=== PATIENT | female | born 1995 | race Caucasian/White ===

== ENCOUNTER 2021-01-02 10:10 | Outpatient (REF) | payer OTHER, SELFPAY | END 2021-01-02 10:11 | disposition home or self-care (01) | LOC: HO.EMPCOV 10:10 | PROVIDERS: Visit Provider Internal Medicine | DX: Z13.89 Encounter for screening for other disorder (principal) | CPT/HCPCS: 36415; 87635; C9803 ==

== ENCOUNTER 2021-01-05 08:17 | Outpatient (REF) | payer OTHER, SELFPAY ==
[2021-01-05 08:31] LABS: COVID-19 Test Positive (Negative); IDNOW Serial# 55D5AD1C
== END 2021-01-05 08:18 | disposition home or self-care (01) ==
LOC: HO.EMPCOV 08:17
PROVIDERS: Visit Provider Internal Medicine
DX: Z20.822 Contact with and (suspected) exposure to COVID-19 (principal)
CPT/HCPCS: 36415; 87635; C9803

== ENCOUNTER 2021-01-16 12:14 | Emergency (ER) | payer OTHER, SELFPAY ==
--- NOTE | ~2021-01-16 | US_ITS ---
EXAMINATION: US VENOUS ULTRASOUND WITH DOPPLER LOWER EXTREMITY, RIGHT CLINICAL INFORMATION: swelling, paresthesias, r/o dvt COMPARISON: None TECHNIQUE: Ultrasound of the deep veins is performed from the hip to the calf with compression sonography and color and pulse Doppler assessment. Spectral analysis with color-flow imaging is performed. FINDINGS: There is normal venous compression and respiratory variation and augmented flow. The visualized common femoral vein, superficial femoral vein, profunda femoral vein, popliteal vein, and the trifurcation region shows no evidence of deep venous thrombosis. There is no significant popliteal fossa cyst. If the patient's symptoms persist, followup ultrasound in 5 days 7 days might be of value to exclude proximal propagation from a non-visualized calf vein. US/US venous duplex LE RT IMPRESSION: No DVT demonstrated in the right lower extremity.
[2021-01-16 12:33] VITALS: BP 137/89; PULSE 98; RESP 18; TEMP 36.6; O2SAT 96; BMI 46.7
--- NOTE | 2021-01-16 12:54 | ED_ITS ---
HPI - General Adult General Chief complaint: General Medical Stated complaint: rt leg pain /numbness Time Seen by Provider: 01/16/21 12:38 Source: patient Mode of arrival: ambulatory Limitations: no limitations History of Present Illness HPI narrative: 25-year-old female previously healthy here with complaints of right leg pain with numbness and tingling x2 days. No injury or trauma. Patient was COVID positive on 01/05. She is currently asymptomatic. Denies any shortness of breath, cough or chest pain. She does have some lower back pain and she tells me the pain radiates from her lower back into her leg. No saddle anesthesia. No bowel or bladder incontinence. No fevers or chills. The patient is ambulatory. No OCP use Related Data Previous Rx's Medication Instructions Recorded cyclobenzaprine 10 mg PO TID PRN #10 tab 01/16/21 lidocaine [Lidoderm] 1 patch TOPICAL DAILY #15 ea 01/16/21 naproxen 500 mg PO BID PRN #20 tab 01/16/21 Allergies Allergy/AdvReac Type Severity Reaction Status Date / Time No Known Allergies Allergy Verified 01/16/21 12:37 Review of Systems Review of Systems: Yes all other systems are reviewed and are negative Constitutional: Constitutional: Reports no additional constitutional complaints, Denies body ache(s), Denies chills, Denies fever(s), Denies headache(s) and Denies weakness Eyes: Eyes: Reports no additional eye complaints and Denies change in vision ENT: Reports system reviewed and no additional complaints, except as documented, Denies dizziness, Denies headache(s), Denies nasal congestion, Denies nasal discharge and Denies neck pain Cardiovascular: Cardiovascular: Reports no additional cardiovascular complaints, Denies chest pain, Denies leg edema and Denies dyspnea Comments: +calf pain Respiratory: Respiratory: Reports no additional respiratory complaints, Denies cough and Denies dyspnea Gastrointestinal: Gastrointestinal: Reports no additional gastrointestinal com plaints, Denies abdominal pain, Denies diarrhea, Denies nausea and Denies vomiting Genitourinary: Genitourinary: Reports no additional female genitourinary complaints and Denies urinary incontinence Musculoskeletal: Musculoskeletal: Reports no additional musculoskeletal complaints, Denies back pain, Denies arthralgias, Denies joint swelling, Denies neck pain, Reports numbness and Denies tingling Integumentary/Breasts: Skin/Breast: Reports system reviewed and no additional complaints, except as docu and Denies rash Neurologic: Reports system reviewed and no additional complaints, except as documented, Denies Abnormal speech present, Denies dizziness, Denies headache(s), Reports numbness, Denies tingling and Denies weakness PMFSH Past Medical History Attestation statement: The following information was validated with the patient. Source: old records reviewed and nursing notes reviewed Medical History High blood pressure Social History Social History Advance Directives: Yes Advance Directives Information Provided: No Advance Directives on File: No Physical Exam Vital Signs: Vital Signs: Last Vital Signs Temp 97.8 F 01/16/21 12:33 Pulse 98 01/16/21 12:33 Resp 18 01/16/21 12:33 BP 137/89 01/16/21 12:33 Pulse Ox 96 01/16/21 12:33 Body Mass Index 46.7 Const: General: cooperative, healthy appearing, comfortable and no acute distress Orientation/consciousness: patient oriented x3 Limitations: no limitations HENMT: Head: Yes normal to inspection Ears: hearing grossly normal bilaterally General nose exam: Normal external nose present Face and sinus: Yes normal facial exam Mouth: Normal oral and palatal mucosa present Throat: Yes posterior oropharynx normal Eyes: General: appearance normal, both eyes and all related structures Pupils: Equal, round and reactive pupils present Neck: Neck: Yes normal visual inspection Chest: Chest palpation & inspection: normal inspection of the chest Resp: Effort & Inspection: normal respiratory effort Auscultation: clear to auscultation bilaterally Cardio: Rate: regular rate Rhythm: regular rhythm Peripheral pulses: Peripheral pulses 2+ throughout GI: Inspection: Yes normal to inspection Palpation (GI): Soft to palpation and nontender Auscultation: normal bowel sounds Back/Spine/Pelvis: Other: Right buttocks pain. Palpable tenderness over the right thigh and right calf with no obvious swelling, erythema or warmth. Neurovascular intact distally. Palpable pulses distally. Pain is worsened with dorsiflexion and plantar flexion of the foot. No midline lumbar tenderness, step-offs or deformities. Pain is worsened with straight leg raise on the right side. Thoracic/Lumbar Spine: thoracic and lumbar spine normal to inspection Skin: General skin exam: no rashes or lesions noted Neuro: General: patient oriented x3, no focal motor deficits and normal sensation to monofilament Cranial nerves: Yes CN's II-XII intact bilaterally, Yes Equal, round and reactive pupils present, Yes Bilaterally intact EOM present, Yes Nystagmus not present, Yes Normal facial strength present, Yes Midline tongue present and Yes Normal gag reflex present Cognition (Neuro): normal cognition Speech: No Abnormal speech present Gait exam (Neuro): Normal gait present Motor exam (neuro): 5/5 motor strength present throughout Sensory Exam: Normal double simultaneous stimulation for sensation Deep tendon reflexes (DTR's): Right patellar reflex intensity grade: 2+ and Left patellar reflex intensity grade: 2+ Extrem: General: Yes normal to inspection Course Course Course Narrative: 25-year-old female COVID positive here with complaints of right leg pain with intermittent paresthesias for 48 hours. On exam she has some right buttocks pain with pain that radiates into the right lower leg which is worsened with straight leg raise. However, she does have some pain in the right calf which is worsened with plantar flexion and dorsiflexion. Due to history of COVID will check ultrasound to rule out DVT. No obvious swelling, warmth, redness, fevers, chills. 1330-US negative for DVT. Exam is more consistent with sciatica. Reviewed this with the patient. Reviewed worrisome signs symptoms when to return to the emergency department. Comfortable with discharge home. Medical Decision Making Medical Records Medical records reviewed: Yes I reviewed the patient's medical records. Lab Data Lab results reviewed: Yes I reviewed the patient's lab results. Imaging Data venous RLE: Attestation: I personally reviewed and interpreted this imaging study as follows: Radiologist's impression: FINDINGS: There is normal venous compression and respiratory variation and augmented flow. The visualized common femoral vein, superficial femoral vein, profunda femoral vein, popliteal vein, and the trifurcation region shows no evidence of deep venous thrombosis. There is no significant popliteal fossa cyst. If the patient's symptoms persist, followup ultrasound in 5 days 7 days might be of value to exclude proximal propagation from a non-visualized calf vein. US/US venous duplex LE RT IMPRESSION: No DVT demonstrated in the right lower extremity. Discharge Plan Discharge Clinical Impression: Sciatica Qualifiers: Laterality: right Qualified Code(s): M54.31 - Sciatica, right side Patient Disposition: Home, Self-Care Instructions: Sciatica (ED) Additional Instructions: Heat or ice Gentle stretching Follow-up with PCP by Tuesday or Tuesday if no improvement Prescriptions: New naproxen 500 mg tablet 500 mg PO BID PRN (Reason: pain) Qty: 20 RF: 0 cyclobenzaprine 10 mg tablet 10 mg PO TID PRN (Reason: muscle spasm) Qty: 10 RF: 0 lidocaine [Lidoderm] 5 % adhesive patch,medicated 1 patch topical DAILY Qty: 15 RF: 0 Referrals: Rose Mary Brennan MD [Primary Care Provider] - 2 days Interventions: ED Discharge Assessment Last Done: 01/16/21 13:57 Discharge Date/Time: 01/16/21 13:57
== END 2021-01-16 13:57 | disposition home or self-care (01) ==
PROVIDERS: Emergency Provider Emergency Medicine; PCP Internal Medicine
DX: M54.41 Lumbago with sciatica, right side (principal); M79.604 Pain in right leg
CPT/HCPCS: 93971; 99283; 99284

== ENCOUNTER 2021-02-25 12:03 | Outpatient (REF) | payer OTHER, SELFPAY ==
[2021-02-25 14:02] LABS: Blood Urea Nitrogen 7 mg/dL (9-16); Estimated Glomerular Filt Rate > 60
== END 2021-02-25 12:04 | disposition home or self-care (01) ==
LOC: HO.LAB 12:03
PROVIDERS: PCP Internal Medicine; Visit Provider Psychiatry & Neurology Neurology
DX: G82.20 Paraplegia, unspecified (principal); G95.9 Disease of spinal cord, unspecified
CPT/HCPCS: 36415; 82565; 84520

== ENCOUNTER 2021-03-03 15:42 | Outpatient (REF) | payer OTHER, SELFPAY ==
--- NOTE | ~2021-03-03 | MR_ITS ---
EXAMINATION: MR BRAIN AND CERVICAL SPINE WITHOUT AND WITH CONTRAST CLINICAL INFORMATION: Myelopathy. COMPARISON: None TECHNIQUE: Multiplanar multisequence MRI of the brain and cervical spine was performed without and with contrast. A total of 10 mL Gadavist was intravenously administered. FINDINGS: Brain MRI: Multiple foci of T2/FLAIR hyperintensity are seen within the periventricular, deep, and juxtacortical cerebral white matter in a distribution typical of demyelinating plaques. No abnormal enhancement is seen on the postcontrast sequences. There is no acute infarct, hemorrhage, mass, or extra-axial fluid collection. The ventricles are normal in size without hydrocephalus. The major arterial flow voids are preserved at the skull base. Scattered paranasal sinus mucosal thickening is noted without fluid levels. A 1.1 cm intermediate T2 signal lesion is present within the superficial lobe of the left parotid gland. Cervical spine MRI: A few plaques are present in the cervical cord including ventrally spanning the C2-C3 level, in the right posterolateral cord at the C3 level, and in the right ventral cord at the C6 level. No upper thoracic cord plaques are seen. There is no abnormal enhancement. The vertebral bodies maintain normal heights and alignment. The disc heights are preserved. There is no significant disc herniation, spinal canal stenosis, or neural foraminal stenosis. The extraspinal soft tissues are within normal limits. MR/MR cervical spine wo/w con IMPRESSION: Brain MRI: Multiple foci of T2/FLAIR hyperintensity within the supratentorial white matter in a distribution typical of demyelinating plaques. No abnormal enhancement. No infratentorial signal abnormality. Incidentally noted 1.1 cm lesion in the superficial lobe of the left parotid gland. Consider nonemergent ENT follow-up. Cervical spine MRI: Demyelinating plaques seen at C2-C3, C3, and C6. No abnormal enhancement. No spinal canal or neural foraminal stenosis.
== END 2021-03-03 15:43 | disposition home or self-care (01) ==
LOC: HO.MRI 15:42
PROVIDERS: Visit Provider Psychiatry & Neurology Neurology
DX: G95.9 Disease of spinal cord, unspecified (principal)
CPT/HCPCS: 70553; 72156; A9585

== ENCOUNTER 2021-03-18 13:09 | Outpatient (REF) | payer OTHER, SELFPAY ==
[2021-03-18 14:03] LABS: Hematocrit 45.3 % (37-47); Hemoglobin 14.8 g/dl (12.0-16.0); Mean Corpuscular HGB Conc 32.7 g/dl (31.0-35.0); Mean Corpuscular Hemoglobin 29.4 pg (27.0-33.0); Mean Corpuscular Volume 89.9 fL (80-98); Mean Platelet Volume 8.5 fL (9.4-12.3); Platelet Count 464 X10*3/uL (160-400); Red Blood Count 5.04 X10*6/uL (4.20-5.50); Red Cell Distribution Width 12.5 % (11.0-16.0)
[2021-03-18 14:30] LABS: Alanine Aminotransferase 39 U/L (0-31); Albumin Level 4.2 g/dL (3.5-5.0); Alkaline Phosphatase 67 U/L (39-117); Anion Gap 10 (12-20); Aspartate Amino Transferase 25 U/L (5-31); Bilirubin Direct 0.2 mg/dL (0.0-0.5); Bilirubin Total 0.6 mg/dL (0.0-1.0); Blood Urea Nitrogen 9 mg/dL (9-16); Calcium 9.4 mg/dL (8.4-10.2); Carbon Dioxide 28 mmol/L (22-29); Chloride 106 mmol/L (96-108); Estimated Glomerular Filt Rate > 60; Glucose Random 81 mg/dL (60-115); Potassium 4.5 mmol/L (3.3-5.1); Sodium 139 mmol/L (135-145); Total Protein 7.4 g/dL (6.5-8.0)
[2021-03-18 14:44] LABS: Erythrocyte Sedimentation Rate 16 MM/HR (0-20)
[2021-03-19 09:01] LABS: Lyme Abs Screen <0.90 index
[2021-03-19 13:32] LABS: Anti Nuclear Antibody Screen NEGATIVE (NEGATIVE)
[2021-03-23 21:12] LABS: JCV Antibody INDETERMINATE; JCV Index Value 0.21
[2021-03-23 22:03] LABS: JCV Ab Inhibition FINAL RSLT: NEGATIVE
== END 2021-03-18 13:10 | disposition home or self-care (01) ==
LOC: HO.LAB 13:09
PROVIDERS: PCP Internal Medicine; Visit Provider Psychiatry & Neurology Neurology
DX: G35 Multiple sclerosis (principal)
CPT/HCPCS: 36415; 80048; 80076; 82306; 85027; 85652; 86038; 86039; 86617; 86618; 86711

== ENCOUNTER 2021-04-01 07:44 | Outpatient (REF) | payer OTHER, SELFPAY ==
[2021-04-01 07:47] VITALS: BMI 46.7
[2021-04-01 07:48] VITALS: BP 131/65; PULSE 86; RESP 16; TEMP 36.1; O2SAT 97
--- NOTE | 2021-04-01 08:00 | OP_ITS ---
SURGEON: Tosin Shepherd MD PREOPERATIVE DIAGNOSIS: POSTOPERATIVE DIAGNOSIS: PROCEDURE PERFORMED: Lumbar puncture. ESTIMATED BLOOD LOSS: COMPLICATIONS: ANESTHESIA: ASSISTANTS: SPECIMENS: DESCRIPTION OF PROCEDURE: Risks and benefits of lumbar puncture were discussed with her. After answering the questions, she was placed in left lateral position. Lower lumbar area was cleaned with Betadine and draped. 1% lidocaine was injected in L4-5 space. A spinal needle was introduced, but she was uncomfortable and lumbar puncture could not be performed and the procedure was terminated. Tosin Shepherd MD MZK/MODL / [id number] MTDD
[2021-04-01 08:22] VITALS: BP 120/71; PULSE 62; RESP 16; O2SAT 97
== END 2021-04-01 07:45 | disposition home or self-care (01) ==
LOC: HO.MS 07:44
PROVIDERS: Visit Provider Psychiatry & Neurology Neurology
PROC: 009U3ZZ Drainage of Spinal Canal, Percutaneous Approach (ICD-10-PCS; CPT 62270; principal; 2021-04-01 08:00)
DX: G35 Multiple sclerosis (principal); I10 Essential (primary) hypertension; N32.89 Other specified disorders of bladder; E66.9 Obesity, unspecified; Z79.899 Other long term (current) drug therapy; Z86.16 Personal history of COVID-19
CPT/HCPCS: 62270

== ENCOUNTER 2021-04-08 09:07 | Day surgery (SDC) | payer OTHER, SELFPAY ==
[2021-04-08] VITALS (7 sets, daily range): BP systolic 109–138; BP diastolic 69–99; PULSE 66–95; RESP 16–18; TEMP 36.2–36.4; O2SAT 96–98; BMI 45.7
--- NOTE | ~2021-04-08 | FL_ITS ---
EXAMINATION: XR LUMBAR PUNCTURE CLINICAL INFORMATION: Multiple sclerosis. COMPARISON: None TECHNIQUE: Following explaining fluoroscopy-guided lumbar puncture procedure, benefits and risk a written consent was obtained. Patient was placed prone on fluoroscopy table and low back area was cleaned in usual sterile manner. 1% lidocaine was injected overlying the L3-L4 disc level. A 20-gauge 6 inch needle was advanced from the skin intrathecally. After observing CSF return patient was quickly placed in a left lateral decubitus. Opening CSF pressure was obtained. CSF fluid was then collected in 4 test tubes. Postprocedure stylet was reintroduced and needle withdrawn. Simple Band-Aid applied to the puncture site. Patient tolerated procedure extremely well. FINDINGS: The opening CSF pressure measured 16.5 cm of water. Approximately 12 mL of clear CSF fluid was collected in 4 test tubes and sent to lab as per referring physician's orders. FLUOROSCOPY TIME: 1.0 minute DOSE AREA PRODUCT: 15.15 uGy-m2 (microgray-meter squared) FL/FL guided lumbar puncture LP IMPRESSION: Successful fluoroscopy-guided L3-L4 lumbar puncture performed.
[2021-04-08 10:04] LABS: UPreg QC Valid YES; Urine Pregnancy NEGATIVE (NEGATIVE)
[2021-04-08 10:04] LABS: MANUAL DIFF FLAG NO
[2021-04-08 10:08] LABS: Basophils Absolute Auto 0.1 X10*3/uL (0.0-0.2); Basophils Percent Auto 0.8 % (0-2); Eosinophils Absolute Auto 0.1 X10*3/uL (0.0-0.4); Eosinophils Percent Auto 1.6 % (0-4); Hematocrit 44.9 % (37-47); Hemoglobin 14.6 g/dl (12.0-16.0); Imm Gran Abs Auto 0.03 X10*3/uL (0.00-0.03); Imm Gran Pct Auto 0.4 % (0.0-0.4); Lymphocytes Absolute Auto 1.7 X10*3/uL (1.2-4.9); Lymphocytes Percent Auto 22.3 % (20-40); Mean Corpuscular HGB Conc 32.5 g/dl (31.0-35.0); Mean Corpuscular Volume 89.1 fL (80-98); Mean Platelet Volume 8.5 fL (9.4-12.3); Monocytes Absolute Auto 0.5 X10*3/uL (0.1-1.2); Monocytes Percent Auto 6.5 % (2-11); Neutrophils Absolute Auto 5.2 X10*3/uL (2.0-8.3); Neutrophils Percent Auto 68.4 % (45-73); Platelet Count 473 X10*3/uL (160-400); Red Blood Count 5.04 X10*6/uL (4.20-5.50); Red Cell Distribution Width 12.4 % (11.0-16.0); White Blood Count 7.5 X10*3/uL (4.8-10.8)
[2021-04-08 10:13] LABS: INTERNATIONAL NORM RATIO 1.2 (0.9-1.1); Prothrombin Time 13.9 SEC (9.9-13.0)
[2021-04-08 10:16] LABS: Partial Thromboplastin Time 40.8 SEC (24.1-38.0)
[2021-04-08] MEDS: Acetaminophen 325 MG TABLET 650 MG PO (12:46)
[2021-04-08 13:35] LABS: CSF Appearance Clear, Colorless; CSF Tube # 1
[2021-04-08 13:46] LABS: Glucose CSF 60 mg/dL; Total Protein CSF 25.3 mg/dL (15-45)
[2021-04-08 14:12] LABS: Appearance CSF CLEAR; CSF Tube # 4; Color CSF COLORLESS; Red Blood Cell CSF 0 MM*3; White Blood Cell CSF 4 MM*3
[2021-04-08 14:13] LABS: Lymphocytes CSF 100 %
[2021-04-09 06:45] LABS: Oligoclonal Serum Yes
[2021-04-11 22:37] LABS: Albumin 4.2 g/dL (3.5-5.2); Albumin, CSF 6.8 mg/dL (8.0-42.0); IgG 1270 mg/dL (600-1640); IgG Synthesis Rate 3.2 mg/24 h (-9.9-3.3); IgG, CSF 2.6 mg/dL (0.8-7.7)
== END 2021-04-08 15:24 | disposition home or self-care (01) ==
PROVIDERS: Psychiatry & Neurology Neurology; PCP Internal Medicine; Visit Provider Radiology Diagnostic Radiology
PROC: 009U3ZZ Drainage of Spinal Canal, Percutaneous Approach (ICD-10-PCS; CPT 62270; principal; 2021-04-08 11:00)
DX: G35 Multiple sclerosis (principal); D75.1 Secondary polycythemia; I10 Essential (primary) hypertension; E66.9 Obesity, unspecified; N32.89 Other specified disorders of bladder; Z79.899 Other long term (current) drug therapy; Z86.16 Personal history of COVID-19
CPT/HCPCS: 36415; 62328; 81025; 82042; 82945; 83916; 84157; 85025; 85610; 85730; 87015; 87070; 87205; 89051

== ENCOUNTER 2021-04-23 09:26 | Outpatient (REF) | payer OTHER, SELFPAY | END 2021-04-23 09:27 | disposition home or self-care (01) | LOC: HO.LAB 09:26 | PROVIDERS: PCP Internal Medicine; Visit Provider Psychiatry & Neurology Neurology | DX: Z13.89 Encounter for screening for other disorder (principal) ==

== ENCOUNTER 2021-05-05 11:05 | Emergency (ER) | payer OTHER, SELFPAY ==
[2021-05-05 12:30] VITALS: BP 131/76; PULSE 84; RESP 18; TEMP 36.2; O2SAT 98; BMI 47.5
[2021-05-05] MEDS: Ondansetron ODT 4 MG TAB.RAPDIS SUBLINGUAL (12:36)
[2021-05-05 13:01] LABS: Glucose Urine UA NEG (NEG); Leukocyte Esterase Urine NEG (NEG); Nitrite Urine NEG (NEG); UACC Culture Trigger NO; Urine Blood TRACE (NEG); Urine Ketones NEG (NEG); Urine Protein NEG (NEG-TRACE)
[2021-05-05 13:05] LABS: Appearance Urine HAZY; Color Urine YELLOW
[2021-05-05 13:06] LABS: UPreg QC Valid YES; Urine Pregnancy NEGATIVE (NEGATIVE)
[2021-05-05 13:09] LABS: Mucus Urine 1+ /LPF; Squamous Epithelial Cell Urine 1+ /LPF; WBC Urine 0 /HPF (0-4)
[2021-05-05 14:24] LABS: Influenza A PCR NEGATIVE (Negative); Influenza B PCR NEGATIVE (Negative); Resp Syncy Virus RNA Qual PCR NEGATIVE (Negative); SARS COV2 PCR INHOUSE NEGATIVE (Negative)
== END 2021-05-05 19:14 | disposition left against medical advice (07) ==
PROVIDERS: Emergency Provider Emergency Medicine; PCP Internal Medicine
DX: R10.9 Unspecified abdominal pain (principal); Z20.822 Contact with and (suspected) exposure to COVID-19
CPT/HCPCS: 0241U; 36415; 81001; 81003; 81025; 99283

== ENCOUNTER 2021-06-16 11:13 | Outpatient (REF) | payer OTHER, SELFPAY ==
[2021-06-16 11:46] LABS: MANUAL DIFF FLAG NO
[2021-06-16 11:53] LABS: Basophils Percent Auto 0.6 % (0-2); Eosinophils Absolute Auto 0.2 X10*3/uL (0.0-0.4); Eosinophils Percent Auto 2.7 % (0-4); Hematocrit 43.8 % (37-47); Hemoglobin 14.3 g/dl (12.0-16.0); Imm Gran Abs Auto 0.02 X10*3/uL (0.00-0.03); Imm Gran Pct Auto 0.3 % (0.0-0.4); Lymphocytes Absolute Auto 1.4 X10*3/uL (1.2-4.9); Lymphocytes Percent Auto 22.1 % (20-40); Mean Corpuscular HGB Conc 32.6 g/dl (31.0-35.0); Mean Corpuscular Hemoglobin 29.1 pg (27.0-33.0); Mean Corpuscular Volume 89.2 fL (80-98); Mean Platelet Volume 8.5 fL (9.4-12.3); Monocytes Absolute Auto 0.4 X10*3/uL (0.1-1.2); Monocytes Percent Auto 6.5 % (2-11); Neutrophils Absolute Auto 4.2 X10*3/uL (2.0-8.3); Neutrophils Percent Auto 67.8 % (45-73); Platelet Count 445 X10*3/uL (160-400); Red Blood Count 4.91 X10*6/uL (4.20-5.50); Red Cell Distribution Width 12.5 % (11.0-16.0); White Blood Count 6.2 X10*3/uL (4.8-10.8)
== END 2021-06-16 11:14 | disposition home or self-care (01) ==
LOC: HO.LAB 11:13
PROVIDERS: PCP Internal Medicine; Visit Provider Psychiatry & Neurology Neurology
DX: G35 Multiple sclerosis (principal)
CPT/HCPCS: 36415; 85025

== ENCOUNTER 2021-07-02 15:03 | Outpatient (REF) | payer OTHER, SELFPAY ==
[2021-07-03 02:47] LABS: CT PCR NOT DETECTED (Not Detect.); NG PCR NOT DETECTED (Not Detect.)
== END 2021-07-02 15:04 | disposition home or self-care (01) ==
LOC: HO.LAB 15:03
PROVIDERS: Visit Provider Obstetrics & Gynecology
DX: Z01.419 Encounter for gynecological examination (general) (routine) without abnormal findings (principal); L68.0 Hirsutism; E28.2 Polycystic ovarian syndrome
CPT/HCPCS: 87491; 87591

== ENCOUNTER 2021-07-03 10:56 | Outpatient (REF) | payer OTHER, SELFPAY ==
[2021-07-06 18:27] LABS: DHEA Sulfate 196 mcg/dL (18-391)
[2021-07-08 13:16] LABS: Testosterone, Free 6.2 pg/mL (0.1-6.4); Testosterone, Total 31 ng/dL (2-45)
== END 2021-07-03 10:57 | disposition home or self-care (01) ==
LOC: HO.LAB 10:56
PROVIDERS: PCP Internal Medicine; Visit Provider Obstetrics & Gynecology
DX: L68.0 Hirsutism (principal)
CPT/HCPCS: 36415; 82627; 83498; 84402; 84403

== ENCOUNTER → 2021-07-29 13:57 | Outpatient (BNVA) | payer OTHER, SELFPAY | PROVIDERS: PCP Internal Medicine; Visit Provider Obstetrics & Gynecology ==

== ENCOUNTER 2021-09-30 13:26 | Outpatient (REF) | payer OTHER, SELFPAY ==
[2021-09-30 13:38] LABS: MANUAL DIFF FLAG NO
[2021-09-30 14:19] LABS: Basophils Percent Auto 0.5 % (0-2); Eosinophils Absolute Auto 0.1 X10*3/uL (0.0-0.4); Eosinophils Percent Auto 2.4 % (0-4); Hemoglobin 14.8 g/dl (12.0-16.0); Imm Gran Abs Auto 0.03 X10*3/uL (0.00-0.03); Imm Gran Pct Auto 0.5 % (0.0-0.4); Lymphocytes Absolute Auto 0.7 X10*3/uL (1.2-4.9); Lymphocytes Percent Auto 11.6 % (20-40); Mean Corpuscular HGB Conc 32.9 g/dl (31.0-35.0); Mean Corpuscular Hemoglobin 29.1 pg (27.0-33.0); Mean Corpuscular Volume 88.6 fL (80.0-98.0); Mean Platelet Volume 8.7 fL (9.4-12.3); Monocytes Absolute Auto 0.6 X10*3/uL (0.1-1.2); Neutrophils Absolute Auto 4.3 x10*3/uL (2.0-8.3); Platelet Count 404 X10*3/uL (160-400); Red Blood Count 5.08 X10*6/uL (4.20-5.50); Red Cell Distribution Width 12.3 % (11.0-16.0); White Blood Count 5.8 X10*3/uL (4.8-10.8)
== END 2021-09-30 13:27 | disposition home or self-care (01) ==
LOC: HO.LABR 13:26
PROVIDERS: PCP Internal Medicine; Visit Provider Internal Medicine Hematology & Oncology
DX: D47.3 Essential (hemorrhagic) thrombocythemia (principal); D75.1 Secondary polycythemia
CPT/HCPCS: 36415; 85025

== ENCOUNTER 2021-11-17 11:31 | Outpatient (REF) | payer OTHER, SELFPAY ==
[2021-11-17 12:18] LABS: Estimated Average Glucose 103 mg/dL; Hemoglobin A1c % 5.2 %
[2021-11-17 12:53] LABS: Alanine Aminotransferase 63 U/L (0-31); Albumin Level 4.3 g/dL (3.5-5.0); Alkaline Phosphatase 58 U/L (39-117); Anion Gap 13 (12-20); Aspartate Amino Transferase 33 U/L (5-31); Bilirubin Total 0.7 mg/dL (0.0-1.0); Blood Urea Nitrogen 9 mg/dL (9-16); Calcium 9.2 mg/dL (8.4-10.2); Carbon Dioxide 22 mmol/L (22-29); Chloride 107 mmol/L (96-108); Estimated Glomerular Filt Rate > 60; Glucose Random 81 mg/dL (60-115); Potassium 4.3 mmol/L (3.3-5.1); Sodium 138 mmol/L (135-145); Total Protein 7.9 g/dL (6.5-8.0)
== END 2021-11-17 11:32 | disposition home or self-care (01) ==
LOC: HO.LAB 11:31
PROVIDERS: PCP Internal Medicine; Visit Provider Pediatrics Pediatric Endocrinology
DX: E66.9 Obesity, unspecified (principal)
CPT/HCPCS: 36415; 80053; 83036

== ENCOUNTER 2021-11-25 12:44 | Outpatient (REF) | payer OTHER, SELFPAY ==
[2021-11-25 13:25] LABS: Hemoglobin 14.7 g/dl (12.0-16.0); Mean Corpuscular HGB Conc 32.7 g/dl (31.0-35.0); Mean Corpuscular Hemoglobin 28.5 pg (27.0-33.0); Mean Corpuscular Volume 87.4 fL (80.0-98.0); Mean Platelet Volume 8.5 fL (9.4-12.3); Platelet Count 429 X10*3/uL (160-400); Red Blood Count 5.15 X10*6/uL (4.20-5.50); Red Cell Distribution Width 12.2 % (11.0-16.0); White Blood Count 6.7 X10*3/uL (4.8-10.8)
== END 2021-11-25 12:45 | disposition home or self-care (01) ==
LOC: HO.LAB 12:44
PROVIDERS: PCP Internal Medicine; Visit Provider Psychiatry & Neurology Neurology
DX: G35 Multiple sclerosis (principal)
CPT/HCPCS: 36415; 85027

== ENCOUNTER 2022-01-28 07:51 | Outpatient (REF) | payer OTHER, SELFPAY ==
[2022-01-28 11:11] LABS: MANUAL DIFF FLAG NO
[2022-01-28 11:49] LABS: Basophils Percent Auto 0.4 % (0-2); Eosinophils Absolute Auto 0.2 X10*3/uL (0.0-0.4); Eosinophils Percent Auto 2.2 % (0-4); Hematocrit 44.2 % (37.0-47.0); Hemoglobin 14.4 g/dl (12.0-16.0); Imm Gran Abs Auto 0.04 X10*3/uL (0.00-0.03); Imm Gran Pct Auto 0.5 % (0.0-0.4); Lymphocytes Absolute Auto 0.9 X10*3/uL (1.2-4.9); Lymphocytes Percent Auto 12.2 % (20-40); Mean Corpuscular HGB Conc 32.6 g/dl (31.0-35.0); Mean Corpuscular Hemoglobin 28.9 pg (27.0-33.0); Mean Corpuscular Volume 88.8 fL (80.0-98.0); Mean Platelet Volume 8.4 fL (9.4-12.3); Monocytes Absolute Auto 0.6 X10*3/uL (0.1-1.2); Monocytes Percent Auto 8.6 % (2-11); Neutrophils Absolute Auto 5.6 x10*3/uL (2.0-8.3); Neutrophils Percent Auto 76.1 % (45-73); Platelet Count 456 X10*3/uL (160-400); Red Blood Count 4.98 X10*6/uL (4.20-5.50); Red Cell Distribution Width 12.8 % (11.0-16.0); White Blood Count 7.4 X10*3/uL (4.8-10.8)
== END 2022-01-28 07:52 | disposition home or self-care (01) ==
LOC: HO.LAB 07:51
PROVIDERS: PCP Internal Medicine; Visit Provider Internal Medicine Hematology & Oncology
DX: D75.1 Secondary polycythemia (principal); D75.839 Thrombocytosis, unspecified; D47.3 Essential (hemorrhagic) thrombocythemia
CPT/HCPCS: 36415; 81219; 81270; 81279; 81339; 85025

== ENCOUNTER 2022-02-19 09:35 | Outpatient (REF) | payer OTHER, SELFPAY ==
--- NOTE | ~2022-02-19 | US_ITS ---
EXAMINATION: US OBSTETRICAL ULTRASOUND CLINICAL INFORMATION: Unspecified maternal hypertension, first trimester COMPARISON: The report of pelvic ultrasound from 10/08/2011 is reviewed. TECHNIQUE: Sonographic imaging of the pelvis is performed using transabdominal and transvaginal transducers. FINDINGS: An anteflexed, anteverted uterus is identified. There are two endometrial cavities, which suggests likelihood of a bicornuate uterus (images 32 and 34 of 37). However, the fundal anatomy is not well depicted to confirm this impression. The myometrial echotexture is normal. No evidence of leiomyoma. Within the right-sided uterine cavity, there is a well-formed gestational sac, mean diameter of 1.22 cm, corresponding to estimated gestational age of 6 weeks. No subchorionic hemorrhage. A yolk sac and pole are observed. The yolk sac is 0.4 cm diameter. The heart rate is 72 bpm. The pole is 0.61 cm, corresponding to estimated gestational age of 6 weeks, 3 days. The right ovary is 3.6 x 2.3 x 4 cm and left ovary 4 x 1.9 x 1.7 cm. No ovarian mass or torsion. No pelvic free fluid. US/US OB <= 14 weeks fetus IMPRESSION: * A single viable intrauterine gestation is identified. There is bradycardia. 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 * The ovaries are normal. No adnexal mass. No pelvic free fluid.
[2022-02-19 11:39] LABS: Estimated Average Glucose 100 mg/dL; Hemoglobin A1c % 5.1 %
[2022-02-19 11:51] LABS: Alanine Aminotransferase 50 U/L (0-31); Aspartate Amino Transferase 30 U/L (5-31); Glucose Random 88 mg/dL (60-115)
== END 2022-02-19 09:36 | disposition home or self-care (01) ==
LOC: HO.LAB 09:35
PROVIDERS: PCP Internal Medicine; Visit Provider Advanced Practice Midwife
DX: O16.1 Unspecified maternal hypertension, first trimester (principal); O26.891 Other specified pregnancy related conditions, first trimester; E28.2 Polycystic ovarian syndrome; O99.211 Obesity complicating pregnancy, first trimester; E66.01 Morbid (severe) obesity due to excess calories; Z3A.00 Weeks of gestation of pregnancy not specified
CPT/HCPCS: 36415; 76801; 82947; 83036; 84450; 84460

== ENCOUNTER 2022-02-23 09:37 | Outpatient (REF) | payer OTHER, SELFPAY ==
--- NOTE | ~2022-02-23 | US_ITS ---
EXAMINATION: US OBSTETRICAL ULTRASOUND CLINICAL INFORMATION: Early . Bradycardia on prior ultrasound 02/19/2022. COMPARISON: Obstetrical ultrasound 02/19/2022. LMP: 12/24/2021. Gestational age by maternal dates is 8 weeks 5 days. Estimated date of delivery by maternal dates is 09/30/2022. TECHNIQUE: Ultrasound of the maternal pelvis is performed using transabdominal and transvaginal transducers. Transvaginal imaging is performed due to inadequate visualization transabdominally. M-mode Doppler is also performed. FINDINGS: There is a single intrauterine gestational sac with visible embryo and yolk sac. The average sac dimension is 1.3 cm corresponding to 6 weeks 1 day. No visible subchorionic hemorrhage or hematoma. CRL (crown rump length): 0.4 cm (6 weeks 1 day +/- 4 days). FHR: No embryonal cardiac activity demonstrated with CRL of 4 mm. KIMI (estimated date of delivery): 10/18/2022 +/- 4 days. MATERNAL ADNEXA: The right maternal ovary measures 4.0 x 1.9 x 2.0 cm. Small dominant follicle versus corpus luteum within the ovary measuring 1.9 x 1.6 cm. The left maternal ovary measures 3.1 x 1.7 x 2.0 cm. No left adnexal mass. There is no significant maternal adnexal mass. No maternal pelvic ascites. Findings called and discussed with Dr. Atkins at 1249 hours. US/US OB transvaginal IMPRESSION: 1. Single intrauterine gestational sac with visible yolk sac and embryo. Average gestational sac dimension and crown-rump length both consistent with 6 weeks 1 day. 2. [place]-rump length only 4 mm. No visible embryo cardiac activity. Findings are suspicious for, but not diagnostic of, a failed intrauterine . Appropriate follow-up recommended. 3. No maternal pelvic ascites. Dominant follicle versus corpus luteum right maternal ovary under 2 cm.
--- NOTE | ~2022-02-23 | US_ITS ---
EXAMINATION: US OBSTETRICAL ULTRASOUND CLINICAL INFORMATION: Early . Bradycardia on prior ultrasound 02/19/2022. COMPARISON: Obstetrical ultrasound 02/19/2022. LMP: 12/24/2021. Gestational age by maternal dates is 8 weeks 5 days. Estimated date of delivery by maternal dates is 09/30/2022. TECHNIQUE: Ultrasound of the maternal pelvis is performed using transabdominal and transvaginal transducers. Transvaginal imaging is performed due to inadequate visualization transabdominally. M-mode Doppler is also performed. FINDINGS: There is a single intrauterine gestational sac with visible embryo and yolk sac. The average sac dimension is 1.3 cm corresponding to 6 weeks 1 day. No visible subchorionic hemorrhage or hematoma. CRL (crown rump length): 0.4 cm (6 weeks 1 day +/- 4 days). FHR: No embryonal cardiac activity demonstrated with CRL of 4 mm. KIMI (estimated date of delivery): 10/18/2022 +/- 4 days. MATERNAL ADNEXA: The right maternal ovary measures 4.0 x 1.9 x 2.0 cm. Small dominant follicle versus corpus luteum within the ovary measuring 1.9 x 1.6 cm. The left maternal ovary measures 3.1 x 1.7 x 2.0 cm. No left adnexal mass. There is no significant maternal adnexal mass. No maternal pelvic ascites. Findings called and discussed with Dr. Atkins at 1249 hours. US/US OB follow up IMPRESSION: 1. Single intrauterine gestational sac with visible yolk sac and embryo. Average gestational sac dimension and crown-rump length both consistent with 6 weeks 1 day. 2. [place]-rump length only 4 mm. No visible embryo cardiac activity. Findings are suspicious for, but not diagnostic of, a failed intrauterine . Appropriate follow-up recommended. 3. No maternal pelvic ascites. Dominant follicle versus corpus luteum right maternal ovary under 2 cm.
[2022-02-23 15:52] LABS: HCG Quantitative 23470 mIU/mL
== END 2022-02-23 09:38 | disposition home or self-care (01) ==
LOC: HO.US 09:37
PROVIDERS: PCP Internal Medicine; Visit Provider Obstetrics & Gynecology
DX: O20.0 Threatened abortion (principal)
CPT/HCPCS: 36415; 76816; 76817; 84702; 86850; 86900; 86901

== ENCOUNTER 2022-02-25 08:23 | Outpatient (REF) | payer OTHER, SELFPAY ==
[2022-02-25 11:05] LABS: HCG Quantitative 26563 mIU/mL
== END 2022-02-25 08:24 | disposition home or self-care (01) ==
LOC: HO.US 08:23
PROVIDERS: PCP Internal Medicine; Visit Provider Obstetrics & Gynecology
DX: O20.0 Threatened abortion (principal)
CPT/HCPCS: 36415; 84702

== ENCOUNTER 2022-03-04 09:58 | Outpatient (REF) | payer OTHER, SELFPAY ==
--- NOTE | ~2022-03-04 | US_ITS ---
EXAMINATION: US OBSTETRICAL ULTRASOUND CLINICAL INFORMATION: , vaginal bleeding and cramping. COMPARISON: Pelvic ultrasound dated 02/23/2022.. LMP: 12/24/2021. Gestational age by maternal dates is 10 weeks, 0 days. Estimated date of delivery by maternal dates is 09/30/2022. TECHNIQUE: Multiple 2-D grayscale and Doppler transabdominal/transvaginal ultrasound images of the pelvis were obtained. FINDINGS: A single intrauterine gestation is again seen. A thin walled yolk sac is seen measuring up to 0.5 cm. Small subchorionic hemorrhage. HR: Not detected. CRL (crown rump length): 0.5 cm (image 52), (previously 0.4 cm). MATERNAL ADNEXA: The right maternal ovary measures 3.5 x 1.9 x 2.9 cm. Doppler showed no abnormal vascular flow. The left maternal ovary not visualized. There is no significant maternal adnexal mass. No maternal pelvic ascites. US/US OB pelvic and transvaginal IMPRESSION: 1. Single intrauterine gestation with ultrasound gestational age of 6.1 +/- 4 days via crown-rump length without significant interval growth nor detectable heart rate. The findings are concerning for demise. Correlate with beta-hCG levels. Repeat ultrasound follow-up is recommended as clinically indicated. 2. Very small subchorionic hemorrhage.
== END 2022-03-04 09:59 | disposition home or self-care (01) ==
LOC: HO.US 09:58
PROVIDERS: Visit Provider Obstetrics & Gynecology
DX: O20.0 Threatened abortion (principal)
CPT/HCPCS: 76801; 76817

== ENCOUNTER 2022-03-04 10:35 | Outpatient (REF) | payer OTHER, SELFPAY ==
[2022-03-04 12:21] LABS: HCG Quantitative 20925 mIU/mL
== END 2022-03-04 10:36 | disposition home or self-care (01) ==
LOC: HO.US 10:35
PROVIDERS: PCP Internal Medicine; Visit Provider Obstetrics & Gynecology
DX: O20.0 Threatened abortion (principal)
CPT/HCPCS: 36415; 84702

== ENCOUNTER 2022-03-04 12:44 | Outpatient (REF) | payer OTHER, SELFPAY ==
[2022-03-05 10:17] LABS: CT PCR NOT DETECTED (Not Detect.); NG PCR NOT DETECTED (Not Detect.)
== END 2022-03-04 12:45 | disposition home or self-care (01) ==
LOC: HO.LAB 12:44
PROVIDERS: Visit Provider Obstetrics & Gynecology
DX: Z11.3 Encounter for screening for infections with a predominantly sexual mode of transmission (principal); Z20.2 Contact with and (suspected) exposure to infections with a predominantly sexual mode of transmission
CPT/HCPCS: 87491; 87591

== ENCOUNTER 2022-03-09 12:57 | Outpatient (REF) | payer OTHER, SELFPAY ==
[2022-03-09 13:51] LABS: Hematocrit 45.1 % (37.0-47.0); Hemoglobin 14.7 g/dl (12.0-16.0); Mean Corpuscular HGB Conc 32.6 g/dl (31.0-35.0); Mean Corpuscular Hemoglobin 28.8 pg (27.0-33.0); Mean Corpuscular Volume 88.3 fL (80.0-98.0); Mean Platelet Volume 8.4 fL (9.4-12.3); Platelet Count 489 X10*3/uL (160-400); Red Blood Count 5.11 X10*6/uL (4.20-5.50); Red Cell Distribution Width 12.6 % (11.0-16.0)
[2022-03-09 14:30] LABS: HCG Quantitative 472 mIU/mL
== END 2022-03-09 12:58 | disposition home or self-care (01) ==
LOC: HO.LAB 12:57
PROVIDERS: Visit Provider Obstetrics & Gynecology
DX: O02.1 Missed abortion (principal)
CPT/HCPCS: 36415; 84702; 85027; 88305

== ENCOUNTER 2022-03-09 13:19 | Outpatient (REF) | payer OTHER, SELFPAY | END 2022-03-09 13:20 | disposition home or self-care (01) | LOC: HO.US 13:19 | PROVIDERS: Visit Provider Obstetrics & Gynecology | DX: Z13.89 Encounter for screening for other disorder (principal) ==

== ENCOUNTER 2022-03-09 13:44 | Outpatient (REF) | payer OTHER, SELFPAY ==
--- NOTE | ~2022-03-09 | US_ITS ---
EXAMINATION: US OBSTETRICAL PELVIC AND TRANSVAGINAL CLINICAL INFORMATION: Missed . COMPARISON: OB ultrasound 03/04/2022. LMP: 12/24/2021. Gestational age by maternal dates is 10 weeks 5 days. Estimated date of delivery by maternal dates is 09/30/2022. TECHNIQUE: Both transabdominal and endovaginal scanning was performed. FINDINGS: No pole is seen. Thickened heterogeneous endometrium is present with the lower uterine segment mass measuring 1.5 cm suggesting retained products of conception. At the time of the 03/04/2022 study, a pole was seen with no heart beat detected suggesting intrauterine demise. MATERNAL ADNEXA: The right maternal ovary measures 2.8 x 1.9 x 2.3 cm. The left maternal ovary measures 3.3 x 1.8 x 2.3 cm. There is no significant maternal adnexal mass. No maternal pelvic ascites. US/US OB pelvic and transvaginal IMPRESSION: An intrauterine is not present. There is what appears to be retained products of conception within the lower uterine segment.
== END 2022-03-09 13:45 | disposition home or self-care (01) ==
LOC: HO.US 13:44
PROVIDERS: Visit Provider Obstetrics & Gynecology
DX: O02.1 Missed abortion (principal)
CPT/HCPCS: 76801; 76817

== ENCOUNTER 2022-03-18 10:11 | Outpatient (REF) | payer OTHER, SELFPAY ==
[2022-03-18 11:19] LABS: HCG Quantitative 28 mIU/mL
== END 2022-03-18 10:12 | disposition home or self-care (01) ==
LOC: HO.LAB 10:11
PROVIDERS: PCP Internal Medicine; Visit Provider Obstetrics & Gynecology
DX: O02.1 Missed abortion (principal)
CPT/HCPCS: 36415; 84702

== ENCOUNTER 2022-04-01 08:18 | Outpatient (REF) | payer OTHER, SELFPAY ==
[2022-04-01 11:14] LABS: HCG Quantitative < 2 mIU/mL
== END 2022-04-01 08:19 | disposition home or self-care (01) ==
LOC: HO.LAB 08:18
PROVIDERS: PCP Internal Medicine; Visit Provider Obstetrics & Gynecology
DX: O02.1 Missed abortion (principal)
CPT/HCPCS: 36415; 84702

== ENCOUNTER 2022-04-15 13:35 | Outpatient (REF) | payer OTHER, SELFPAY ==
[2022-04-15 15:22] LABS: HCG Quantitative 25 mIU/mL
== END 2022-04-15 13:36 | disposition home or self-care (01) ==
LOC: HO.LAB 13:35
PROVIDERS: PCP Internal Medicine; Visit Provider Obstetrics & Gynecology
DX: Z34.91 Encounter for supervision of normal pregnancy, unspecified, first trimester (principal)
CPT/HCPCS: 36415; 81025; 84702

== ENCOUNTER 2022-04-16 09:28 | Outpatient (REF) | payer OTHER, SELFPAY ==
[2022-04-16 10:31] LABS: HCG Quantitative 36 mIU/mL
== END 2022-04-16 09:29 | disposition home or self-care (01) ==
LOC: HO.LAB 09:28
PROVIDERS: PCP Internal Medicine; Visit Provider Obstetrics & Gynecology
DX: Z34.91 Encounter for supervision of normal pregnancy, unspecified, first trimester (principal)
CPT/HCPCS: 36415; 84702

== ENCOUNTER 2022-04-19 08:08 | Outpatient (REF) | payer OTHER, SELFPAY ==
[2022-04-19 10:56] LABS: HCG Quantitative 143 mIU/mL
== END 2022-04-19 08:09 | disposition home or self-care (01) ==
LOC: HO.LAB 08:08
PROVIDERS: PCP Internal Medicine; Visit Provider Obstetrics & Gynecology
DX: Z34.91 Encounter for supervision of normal pregnancy, unspecified, first trimester (principal)
CPT/HCPCS: 36415; 84702

== ENCOUNTER 2022-04-21 07:54 | Outpatient (REF) | payer OTHER, SELFPAY ==
[2022-04-21 09:28] LABS: HCG Quantitative 446 mIU/mL
== END 2022-04-21 07:55 | disposition home or self-care (01) ==
LOC: HO.LAB 07:54
PROVIDERS: PCP Internal Medicine; Visit Provider Obstetrics & Gynecology
DX: Z34.90 Encounter for supervision of normal pregnancy, unspecified, unspecified trimester (principal)
CPT/HCPCS: 36415; 84702

== ENCOUNTER 2022-04-23 07:52 | Outpatient (REF) | payer OTHER, SELFPAY ==
[2022-04-23 09:50] LABS: HCG Quantitative 1059 mIU/mL
== END 2022-04-23 07:53 | disposition home or self-care (01) ==
LOC: HO.LAB 07:52
PROVIDERS: PCP Internal Medicine; Visit Provider Obstetrics & Gynecology
DX: Z34.90 Encounter for supervision of normal pregnancy, unspecified, unspecified trimester (principal); Z3A.01 Less than 8 weeks gestation of pregnancy
CPT/HCPCS: 36415; 84702

== ENCOUNTER 2022-04-26 08:26 | Outpatient (REF) | payer OTHER, SELFPAY ==
[2022-04-26 09:57] LABS: HCG Quantitative 3332 mIU/mL
== END 2022-04-26 08:27 | disposition home or self-care (01) ==
LOC: HO.LAB 08:26
PROVIDERS: PCP Internal Medicine; Visit Provider Obstetrics & Gynecology
DX: Z34.90 Encounter for supervision of normal pregnancy, unspecified, unspecified trimester (principal); Z3A.01 Less than 8 weeks gestation of pregnancy
CPT/HCPCS: 36415; 84702

== ENCOUNTER 2022-04-27 13:13 | Outpatient (REF) | payer OTHER, SELFPAY ==
--- NOTE | ~2022-04-27 | US_ITS ---
EXAMINATION: US OBSTETRICAL ULTRASOUND CLINICAL INFORMATION: Encounter for supervision abnormal COMPARISON: Previous OB ultrasounds most recent 03/09/2022 LMP: Unknown. Gestational age by maternal dates is . Estimated date of delivery by maternal dates is . TECHNIQUE: Transabdominal and transvaginal pelvic ultrasound. Transvaginal exam was performed for better visualization of the uterus and ovaries. FINDINGS: The uterus measures 6 x 3 x 4 cm in dimension. There is a cystic area seen in the endometrium questionable for an intrauterine gestational sac. Mean sac diameter measures 0.6 cm which would suggest gestational age of 5 weeks 1 day. No pole or yolk sac is seen. The cervix is normal. The ovaries are normal. The right ovary measures 3.1 x 2 x 2.6 cm. The left ovary measures 3.3 x 2.1 x 2.5 cm. There is no fluid in the pelvis. US/US OB pelvic and transvaginal IMPRESSION: Question intrauterine gestational sac. Mean sac diameter would suggest gestational age of 5 weeks 1 day. No pole or yolk sac seen.
== END 2022-04-27 13:14 | disposition home or self-care (01) ==
LOC: HO.US 13:13
PROVIDERS: PCP Internal Medicine; Visit Provider Obstetrics & Gynecology
DX: Z34.91 Encounter for supervision of normal pregnancy, unspecified, first trimester (principal); Z3A.01 Less than 8 weeks gestation of pregnancy
CPT/HCPCS: 76801; 76817

== ENCOUNTER 2022-04-28 | Outpatient (REF) | payer OTHER, SELFPAY ==
[2022-04-28 10:56] LABS: HCG Quantitative 5155 mIU/mL
== END 2022-04-28 00:01 ==
LOC: HO.LAB
PROVIDERS: PCP Internal Medicine; Visit Provider Obstetrics & Gynecology
DX: Z34.90 Encounter for supervision of normal pregnancy, unspecified, unspecified trimester (principal)
CPT/HCPCS: 36415; 84702

== ENCOUNTER 2022-05-06 12:11 | Outpatient (REF) | payer OTHER, SELFPAY ==
--- NOTE | ~2022-05-06 | US_ITS ---
EXAMINATION: US OBSTETRICAL ULTRASOUND CLINICAL INFORMATION: Early hemorrhage. COMPARISON: 04/27/2022. LMP: Unknown. TECHNIQUE: Sonographic imaging of the pelvis is performed using transabdominal and transvaginal transducers. FINDINGS: The anteflexed, anteverted uterus has normal contour and normal myometrial echotexture. No evidence of uterine leiomyoma. There is a nabothian cyst of the cervix. A gestational sac in the fundal portion of the endometrium has increased in size compared to 04/27/2022. The gestational sac is partially obscured by acoustic shadowing on the transvaginal imaging. The mean sac diameter is 1.61 cm, corresponding to estimated gestational age of 6 weeks, 3 days. Previously, the mean sac diameter was 0.6 cm, gestational age of 5 weeks, 1 day on prior ultrasound from 04/27/2022. No evidence of subchorionic hemorrhage. A 0.3 cm diameter yolk sac is visualized. Currently, there is no visible pole. If clinically necessary, follow-up pelvic ultrasound may be performed in another 10 days to ensure that this evolves into a normal viable intrauterine . The right ovary is 3.6 x 2 x 2.8 cm and left ovary 2.4 x 2.2 x 2.2 cm. No adnexal mass. No pelvic free fluid. US/US OB pelvic and transvaginal IMPRESSION: * The gestational sac has increased in size. There is interval development of a yolk sac. The gestational sac diameter suggests gestational age of 6 weeks, 3 days. If deemed clinically appropriate, follow-up ultrasound may be performed after 10 more days to ensure that this evolves into a normal viable intrauterine gestation. * No evidence of ectopic .
== END 2022-05-06 12:12 | disposition home or self-care (01) ==
LOC: HO.US 12:11
PROVIDERS: Visit Provider Obstetrics & Gynecology
DX: O20.9 Hemorrhage in early pregnancy, unspecified (principal)
CPT/HCPCS: 76801; 76817

== ENCOUNTER 2022-05-12 07:30 | Emergency (ER) | payer OTHER, SELFPAY ==
--- NOTE | ~2022-05-12 | US_ITS ---
EXAMINATION: US OBSTETRICAL ULTRASOUND CLINICAL INFORMATION: Vaginal bleeding, spotting and cramping. COMPARISON: Previous exams April 27 and 05/06/2022. LMP: Not available. Gestational age by maternal dates is . Estimated date of delivery by maternal dates is . TECHNIQUE: Transabdominal and transvaginal first trimester OB ultrasound was performed. FINDINGS: There is again question of a bicornuate uterus. There is an intrauterine gestational sac seen in the left uterine horn. [place]-rump length measures 0.9 cm suggesting gestational age 7 weeks 0 days with estimated date of delivery of 12/29/2022. heart rate is 140 bpm. There is a yolk sac. No subchorionic hemorrhage is seen. There is a nabothian cyst in the cervix measuring 1 cm. This appears unchanged. The ovaries are seen transabdominally only and appear normal. There is no fluid in the pelvis. US/US OB pelvic and transvaginal IMPRESSION: 1. Single intrauterine gestation with ultrasound gestational age of 7 weeks 0 days +/- 4 days. 2. Estimated date of delivery is 12/29/2022 +/- 4 days. 3. No subchorionic hemorrhage seen. There is again question of bicornuate uterus with gestational sac seen in the left uterine horn. There is a nabothian cyst in the cervix.
[2022-05-12 07:35] VITALS: BP 128/82; PULSE 90; RESP 16; TEMP 36.6; O2SAT 98; BMI 49.4
[2022-05-12 09:10] VITALS: BP 129/79; PULSE 88; RESP 18; O2SAT 98
[2022-05-12 09:21] LABS: Appearance Urine Clear; Glucose Urine UA Negative (Negative); Leukocyte Esterase Urine Negative (Negative); Nitrite Urine Negative (Negative); Specific Gravity - Urine 1.015 (1.005-1.025); UPreg QC Valid YES; Urine Blood Large (3+) (Negative); Urine Ketones Negative (Negative); Urine Pregnancy POSITIVE (NEGATIVE); Urine Protein Negative (Neg-Trace)
[2022-05-12 09:22] LABS: Color Urine Straw
[2022-05-12 09:31] LABS: RBC Urine 0-2 /HPF (0-2); WBC Urine 0-5 /HPF (0-5)
[2022-05-12 09:32] LABS: Bacteria Urine None Seen (None Seen); Hyaline Casts Urine 0-2 /LPF (0-2)
--- NOTE | 2022-05-12 09:32 | ED_ITS ---
HPI - General Chief complaint: Vaginal Bleeding Stated complaint: problems Time Seen by Provider: 05/12/22 08:37 Source: patient Mode of arrival: ambulatory History of Present Illness HPI Narrative: 27-year-old female at about 7 weeks gestation presenting to the ED complaining of vaginal spotting x3 days with passing of bright red clot this morning. Admits to associated intermittent lower abdominal cramping. Denies fever, chills, nausea, vomiting, diarrhea, dysuria/hematuria, flank pain, vaginal discharge Of note patient evaluated by OBGYN Dr. Atkins on 05/06/2022 for similar symptoms had ultrasound that showed gestational sac consistent with 6 weeks 3 days, no heart rate/ pole seen MD Complaint: vaginal bleeding Onset (ago): day(s) Related Data Home Medications Medication Instructions Recorded Confirmed amlodipine 2.5 mg tablet 2.5 mg PO DAILY 07/02/21 02/19/22 cholecalciferol (vitamin D3) 50 50 mcg PO DAILY 07/02/21 02/19/22 mcg (2,000 unit) capsule Previous Rx's Medication Instructions Recorded vitamins no.144-folic 1 tab PO DAILY 180 days #180 tabs 04/19/22 acid 400 mcg chewable tablet Allergies Allergy/AdvReac Type Severity Reaction Status Date / Time No Known Allergies Allergy Verified 05/06/22 13:07 Review of Systems Review of Systems: Constitutional: No Fever, No Chills, No Fatigue, No Malaise ENT/Mouth: No Hearing loss, No Ear Pain, No Hoarseness, No sore throat, No Rhinorrhea, No Swallowing Difficulty Eyes: No Eye Pain, No Swelling, No Redness, No Foreign Body, No Discharge, No Vision Changes Cardiovascular: No Chest Pain, No SOB, No Orthopnea, No Edema, No Palpitations Respiratory: No Cough, No Wheezing, No Dyspnea Gastrointestinal: No Nausea, No Vomiting, No Diarrhea, No Constipation, + Abdominal cramping Genitourinary: No irregular bleeding, No Dysuria, No Urinary Frequency, No Hematuria, No Urinary Incontinence/retention, No Urgency, No Flank Pain Musculoskeletal: No joint pain, No Myalgias, No Joint Swelling Skin: No Skin Lesions, No rash Neuro: No Weakness, No Loss of Consciousness, No Dizziness, No Headache Yes all other systems are reviewed and are negative Constitutional: Constitutional: Reports as per [facility] Past Medical History Attestation statement: The following information was validated with the patient. Medical History ASCUS with positive high risk HPV cervical High blood pressure Multiple sclerosis Family History Family History Father Diabetes HTN (hypertension) Social History Social History Household Members: Family Housing: House Alcohol intake: never Patient Tobacco Use Status: Never used Tobacco Advance Directives: No Advance Directives Information Provided: No service: No Current occupational status: employed Sexual orientation: Straight/Heterosexual Gender identity: Female Physical Exam Vital Signs: Vital Signs: Last Vital Signs Temp 96.2 F L 05/12/22 13:25 Pulse 80 05/12/22 13:25 Resp 18 05/12/22 09:10 BP 124/72 05/12/22 13:25 Pulse Ox 99 05/12/22 13:25 O2 Del Method 05/12/22 13:25 BMI result Body Mass Index 49.4 Const: General: cooperative, healthy appearing and no acute distress Orientation/consciousness: patient oriented x3 Limitations: no limitations HEENT: Head: Yes normal to inspection and Yes atraumatic Ears: hearing grossly normal bilaterally General nose exam: Normal external nose present Face and sinus: Yes normal facial exam Eyes: General: appearance normal, both eyes and all related structures EOM: EOMs intact bilaterally Neck: Neck: Yes normal visual inspection and Yes no meningeal signs Resp: Effort & Inspection: normal respiratory effort and no respiratory distress Auscultation: clear to auscultation bilaterally Cardio: Rate: regular rate Heart sounds: S1 normal heart sound present and S2 normal heart sound present GI: Inspection: Yes normal to inspection Palpation (GI): Soft to palpation, Tenderness to palpation present (GI) (Right suprapubic) suprapubicly; with no rebound tenderness, no guarding and not rigid : Other: Scant amount of bleeding in vaginal vault, cleared without active hemorrhage. Small clots noted. General: Yes no CVA tenderness Speculum Exam - Vagina: vaginal bleeding and nontender Bimanual exam- vagina & uterus: no cervical motion tenderness Bimanual Exam- Adnexa, other: tender on the right OB/external & speculum: vaginal bleeding Back/Spine/Pelvis: Back: no CVA tenderness Skin: Rashes: no rashes Wounds: no wounds Neuro: General: patient oriented x3, tone normal and no meningeal signs Gait exam (Neuro): Normal gait present Extrem: General: Yes normal to inspection Course Course Course Narrative: -1048--no leukocytosis. H&H is stable. Platelets at baseline UA with blood. Not infected. Patient is ABO positive -HCG 29,967 US OB pelvic and transvaginal IMPRESSION: 1. Single intrauterine gestation with ultrasound gestational age of? 7 weeks 0 days +/- 4 days. 2. Estimated date of delivery is 12/29/2022 +/- 4 days. 3. No subchorionic hemorrhage seen. ? There is again question of bicornuate uterus with gestational sac seen in the left uterine horn. There is a nabothian cyst in the cervix. > results discussed with patient. She reports she has follow-up with Dr. Atkins on Tuesday, recommended repeat HCG prior to appointment, patient was supplied with lab slip. Discussed SAB precautions MDM - OB/Uterine Contractions MDM Narrative Medical decision making narrative: 27-year-old female at about 7 weeks gestation presenting to the ED complaining of vaginal spotting x3 days with passing of bright red clot this morning. On exam vital signs stable, NAD/nontoxic, abdomen soft with suprapubic/right-sided suprapubic tenderness, no rebound or guarding. On pelvic exam small amount of bleeding and fall with small clots. No active hemorrhage. No CMT, + right adnexal tenderness. Exam not consistent with PID. Concern for SAB/threatened vs early bleeding. Lower suspicion for TOA/ovarian torsion/cyst or appendicitis/diverticulitis Plan: Labs, UA, pelvic ultrasound, STI testing Medical Records Attestation: I reviewed the patient's medical records. Lab Data Attestation: I reviewed the patient's lab results. Result diagrams: 05/12/22 09:41 05/12/22 09:41 Labs: Lab Results 05/12/22 05/12/22 05/12/22 Range/Units 09:11 09:11 09:41 WBC 6.8 (4.8-10.8) X10*3/uL RBC 5.25 (4.20-5.50) X10*6/uL Hgb 15.2 (12.0-16.0) g/dl Hct 45.6 (37.0-47.0) % MCV 86.9 (80.0-98.0) fL MCH 29.0 (27.0-33.0) pg MCHC 33.3 (31.0-35.0) g/dl RDW 12.5 (11.0-16.0) % Plt Count 433 H (160-400) X10*3/uL MPV 8.2 L (9.4-12.3) fL Immature Gran % (Auto) 0.4 (0.0-0.4) % Neut % (Auto) 77.5 H (45-73) % Lymph % (Auto) 13.3 L (20-40) % [place] % (Auto) 6.2 (2-11) % Eos % (Auto) 1.9 (0-4) % Baso % (Auto) 0.7 (0-2) % Lymph # (Auto) 0.9 L (1.2-4.9) X10*3/uL [place] # (Auto) 0.4 (0.1-1.2) X10*3/uL Eos # (Auto) 0.1 (0.0-0.4) X10*3/uL Baso # (Auto) 0.1 (0.0-0.2) X10*3/uL Abs Immat Gran (auto) 0.03 (0.00-0.03) X10*3/uL Absolute Neuts (auto) 5.2 (2.0-8.3) x10*3/uL Absolute Nucleated RBC 0.000 (0.0-0.012) X10*3/uL Nucleated RBC % (auto) 0.0 (0.0-0.2) /100WBC Sodium (135-145) mmol/L Potassium (3.3-5.1) mmol/L Chloride (96-108) mmol/L Carbon Dioxide (22-29) mmol/L Anion Gap (12-20) BUN (9-16) mg/dL Creatinine (0.5-1.4) mg/dL Estim Creat Clear Calc Estimated GFR Random Glucose (60-115) mg/dL Calcium (8.4-10.2) mg/dL Beta HCG, Quant mIU/mL Urine Color Straw Urine Appearance Clear Urine pH 8.0 (5.0-8.0) Ur Specific [place] 1.015 (1.005-1.025) Urine Protein Negative (Neg-Trace) mg/dL Urine Glucose (UA) Negative (Negative) mg/dL Urine Ketones Negative (Negative) mg/dL Urine Blood Large (3+) H (Negative) Urine Nitrite Negative (Negative) Ur Leukocyte Esterase Negative (Negative) Urine RBC 0-2 (0-2) /HPF Urine WBC 0-5 (0-5) /HPF Ur Squamous Epith Cells 3-5 (0-2) /HPF Urine Bacteria None Seen (None Seen) Hyaline Casts 0-2 (0-2) /LPF Urine Test POSITIVE H (NEGATIVE) 05/12/22 Range/Units 09:41 WBC (4.8-10.8) X10*3/uL RBC (4.20-5.50) X10*6/uL Hgb (12.0-16.0) g/dl Hct (37.0-47.0) % MCV (80.0-98.0) fL MCH (27.0-33.0) pg MCHC (31.0-35.0) g/dl RDW (11.0-16.0) % Plt Count (160-400) X10*3/uL MPV (9.4-12.3) fL Immature Gran % (Auto) (0.0-0.4) % Neut % (Auto) (45-73) % Lymph % (Auto) (20-40) % [place] % (Auto) (2-11) % Eos % (Auto) (0-4) % Baso % (Auto) (0-2) % Lymph # (Auto) (1.2-4.9) X10*3/uL [place] # (Auto) (0.1-1.2) X10*3/uL Eos # (Auto) (0.0-0.4) X10*3/uL Baso # (Auto) (0.0-0.2) X10*3/uL Abs Immat Gran (auto) (0.00-0.03) X10*3/uL Absolute Neuts (auto) (2.0-8.3) x10*3/uL Absolute Nucleated RBC (0.0-0.012) X10*3/uL Nucleated RBC % (auto) (0.0-0.2) /100WBC Sodium 140 (135-145) mmol/L Potassium 4.5 (3.3-5.1) mmol/L Chloride 107 (96-108) mmol/L Carbon Dioxide 23 (22-29) mmol/L Anion Gap 15 (12-20) BUN 7 L (9-16) mg/dL Creatinine 0.61 (0.5-1.4) mg/dL Estim Creat Clear Calc 174.3 Estimated GFR > 60 Random Glucose 89 (60-115) mg/dL Calcium 8.7 (8.4-10.2) mg/dL Beta HCG, Quant 62222 mIU/mL Urine Color Urine Appearance Urine pH (5.0-8.0) Ur Specific [place] (1.005-1.025) Urine Protein (Neg-Trace) mg/dL Urine Glucose (UA) (Negative) mg/dL Urine Ketones (Negative) mg/dL Urine Blood (Negative) Urine Nitrite (Negative) Ur Leukocyte Esterase (Negative) Urine RBC (0-2) /HPF Urine WBC (0-5) /HPF Ur Squamous Epith Cells (0-2) /HPF Urine Bacteria (None Seen) Hyaline Casts (0-2) /LPF Urine Test (NEGATIVE) Discharge Plan Discharge Clinical Impression: Bleeding in early Patient Disposition: Home, Self-Care Instructions: Early Labor Signs (ED) Additional Instructions: Your ultrasound shows an intrauterine gestation at 7 weeks. Your hCG was 29,000 today. If her bleeding persists, worsens, you have abdominal pain, are unable to eat or drink or developed fever please return to the emergency department Keep her follow-up with OBGYN on Tuesday Prescriptions: No Action amlodipine 2.5 mg tablet 2.5 mg PO DAILY cholecalciferol (vitamin D3) 50 mcg (2,000 unit) capsule 50 mcg PO DAILY no.144-folic acid 400 mcg tablet,chewable 1 tab PO DAILY 180 Days Qty: 180 1RF Referrals: Theodore Atkins MD [Physician] - 2 days
[2022-05-12 10:00] LABS: MANUAL DIFF FLAG NO
[2022-05-12 10:06] LABS: Basophils Absolute Auto 0.1 X10*3/uL (0.0-0.2); Basophils Percent Auto 0.7 % (0-2); Eosinophils Absolute Auto 0.1 X10*3/uL (0.0-0.4); Eosinophils Percent Auto 1.9 % (0-4); Hematocrit 45.6 % (37.0-47.0); Hemoglobin 15.2 g/dl (12.0-16.0); Imm Gran Abs Auto 0.03 X10*3/uL (0.00-0.03); Imm Gran Pct Auto 0.4 % (0.0-0.4); Lymphocytes Absolute Auto 0.9 X10*3/uL (1.2-4.9); Lymphocytes Percent Auto 13.3 % (20-40); Mean Corpuscular HGB Conc 33.3 g/dl (31.0-35.0); Mean Corpuscular Volume 86.9 fL (80.0-98.0); Mean Platelet Volume 8.2 fL (9.4-12.3); Monocytes Absolute Auto 0.4 X10*3/uL (0.1-1.2); Monocytes Percent Auto 6.2 % (2-11); Neutrophils Absolute Auto 5.2 x10*3/uL (2.0-8.3); Neutrophils Percent Auto 77.5 % (45-73); Platelet Count 433 X10*3/uL (160-400); Red Blood Count 5.25 X10*6/uL (4.20-5.50); Red Cell Distribution Width 12.5 % (11.0-16.0); White Blood Count 6.8 X10*3/uL (4.8-10.8)
[2022-05-12 10:21] LABS: Anion Gap 15 (12-20); Blood Urea Nitrogen 7 mg/dL (9-16); Calcium 8.7 mg/dL (8.4-10.2); Carbon Dioxide 23 mmol/L (22-29); Chloride 107 mmol/L (96-108); Creatinine Clr Calc Pharmacy 174.3; Estimated Glomerular Filt Rate > 60; Glucose Random 89 mg/dL (60-115); Potassium 4.5 mmol/L (3.3-5.1); Sodium 140 mmol/L (135-145)
[2022-05-12 10:51] LABS: HCG Quantitative 29967 mIU/mL
[2022-05-12 13:25] VITALS: BP 124/72; PULSE 80; TEMP 35.7; O2SAT 99
[2022-05-12 13:44] LABS: CT PCR NOT DETECTED (Not Detect.); NG PCR NOT DETECTED (Not Detect.)
[2022-05-13 09:39] LABS: BV Int Neg Control Negative (Negative); BV Int Pos Control Positive (Positive)
== END 2022-05-12 14:04 | disposition home or self-care (01) ==
PROVIDERS: Physician Assistant; Emergency Provider Emergency Medicine; PCP Internal Medicine
DX: O20.9 Hemorrhage in early pregnancy, unspecified (principal); Z3A.01 Less than 8 weeks gestation of pregnancy; O34.41 Maternal care for other abnormalities of cervix, first trimester; N88.8 Other specified noninflammatory disorders of cervix uteri
CPT/HCPCS: 36415; 76801; 76817; 80048; 81001; 81025; 84702; 85025; 87480; 87491; 87510; 87591; 87660; 99283; 99284

== ENCOUNTER 2022-05-14 08:08 | Outpatient (REF) | payer OTHER, SELFPAY | END 2022-05-14 08:09 | disposition home or self-care (01) | LOC: HO.US 08:08 | PROVIDERS: Absent Provider Physician Assistant; PCP Internal Medicine; Visit Provider Obstetrics & Gynecology | DX: Z13.89 Encounter for screening for other disorder (principal) ==

== ENCOUNTER 2022-06-08 07:40 | Outpatient (REF) | payer OTHER, SELFPAY ==
[2022-06-08 09:54] LABS: Hematocrit 43.5 % (37.0-47.0); Hemoglobin 14.7 g/dl (12.0-16.0); Mean Corpuscular HGB Conc 33.8 g/dl (31.0-35.0); Mean Corpuscular Hemoglobin 28.5 pg (27.0-33.0); Mean Corpuscular Volume 84.5 fL (80.0-98.0); Mean Platelet Volume 8.3 fL (9.4-12.3); Platelet Count 413 X10*3/uL (160-400); Red Blood Count 5.15 X10*6/uL (4.20-5.50); Red Cell Distribution Width 12.7 % (11.0-16.0); White Blood Count 8.4 X10*3/uL (4.8-10.8)
[2022-06-08 10:30] LABS: Alanine Aminotransferase 33 U/L (0-31); Albumin Level 4.1 g/dL (3.5-5.0); Alkaline Phosphatase 56 U/L (39-117); Anion Gap 15 (12-20); Aspartate Amino Transferase 24 U/L (5-31); Bilirubin Total 0.7 mg/dL (0.0-1.0); Blood Urea Nitrogen 6 mg/dL (9-16); Calcium 9.2 mg/dL (8.4-10.2); Carbon Dioxide 20 mmol/L (22-29); Chloride 107 mmol/L (96-108); Estimated Glomerular Filt Rate > 60; Glucose 1 Hour PP 50gm Dose 117 mg/dL (60-140); Glucose Random 117 mg/dL (60-115); Potassium 4.1 mmol/L (3.3-5.1); Sodium 138 mmol/L (135-145); Total Protein 7.4 g/dL (6.5-8.0); Uric Acid 3.8 mg/dL (2.4-5.7)
[2022-06-08 10:40] LABS: HBsAGNum1 0.26 S/CO (0.00-0.99); HIV AB/AG Nonreactive (Nonreactive); HIV Num 1 0.06 S/CO (0.00-0.99); Hepatitis B Surface Antigen Negative (Negative); ~HepC Num1 0.06 S/CO (0.00-0.79); ~Hepatitis C Antibody Nonreactive (Nonreactive)
[2022-06-08 11:08] LABS: Creatinine Urine 182.97 mg/dL; Protein/Creatinine Ratio, Ur 0.09 (<0.2); Total Protein Urine Random 16 mg/dL (<12)
[2022-06-08 11:11] LABS: Amphetamine Screen Urine Not Detected (Not Detect); Barbiturates, Urine Not Detected (Not Detect); Benzodiazepines Screen Urine Not Detected (Not Detect); Cannabinoid Screen Urine Not Detected (Not Detect); Cocaine Screen Urine Not Detected (Not Detect); Fentanyl, urine Not Detected (Not Detect); Opiate Screen Urine Not Detected (Not Detect); Phencyclidine Screen Urine Not Detected (Not Detect)
[2022-06-09 05:46] LABS: Syphilis Screen Nonreactive (Nonreactive)
[2022-06-10 00:42] LABS: Rubella IgG Antibody 2.01 Index; Varicella IgG Antibody <135.00 index
== END 2022-06-08 07:41 | disposition home or self-care (01) ==
LOC: HO.LAB 07:40
PROVIDERS: Visit Provider Obstetrics & Gynecology
DX: O16.1 Unspecified maternal hypertension, first trimester (principal); O99.211 Obesity complicating pregnancy, first trimester; E66.01 Morbid (severe) obesity due to excess calories
CPT/HCPCS: 80053; 80307; 84156; 84550; 85027; 86762; 86780; 86787; 86803; 86850; 86900; 87086; 87340; 87389

== ENCOUNTER 2022-06-15 14:45 | Outpatient (REF) | payer OTHER, SELFPAY ==
[2022-06-15 15:46] LABS: Alanine Aminotransferase 31 U/L (0-31); Aspartate Amino Transferase 25 U/L (5-31); Blood Urea Nitrogen 6 mg/dL (9-16); Estimated Glomerular Filt Rate > 60
== END 2022-06-15 14:46 | disposition home or self-care (01) ==
LOC: HO.LAB 14:45
PROVIDERS: Visit Provider Obstetrics & Gynecology
DX: O16.1 Unspecified maternal hypertension, first trimester (principal)
CPT/HCPCS: 36415; 82565; 84450; 84460; 84520

== ENCOUNTER 2022-07-15 08:59 | Emergency (ER) | payer OTHER, SELFPAY ==
--- NOTE | ~2022-07-15 | US_ITS ---
EXAMINATION: US OBSTETRICAL ULTRASOUND CLINICAL INFORMATION: 16 week gestation with vaginal fluid leakage. KIMI based on prior ultrasound 12/29/2022. COMPARISON: Pelvic ultrasound 05/12/2022, 05/06/2022, 04/27/2022. TECHNIQUE: Ultrasound of the maternal pelvis is performed using transabdominal and transvaginal transducers. Transvaginal imaging is performed due to inadequate visualization transabdominally. M-mode Doppler is also performed. FINDINGS: There is a single intrauterine gestation with an anterior placenta. There is marked oligohydramnios, No appreciable amniotic fluid. There is bradycardia, 81 bpm. Preliminary report provided to Dr. Roberts in emergency department by hospice registered nurse. US/US OB pelvic and transvaginal IMPRESSION: 1. Single intrauterine gestation with marked oligohydramnios. No appreciable amniotic fluid. 2. bradycardia, 81 bpm. 3. Anterior placenta. No visible hemorrhage or hematoma.
[2022-07-15 09:05] VITALS: BP 131/70; PULSE 95; RESP 22; TEMP 36.6; O2SAT 99; BMI 49.4
--- NOTE | 2022-07-15 09:12 | PC.NURSE ---
DR REYES AT THE BEDSIDE FOR PELVIC AND US. REPORTS THAT THE CERVIX IS OPEN. IV ACCESS GAINED. NS 1L INFUSING. IN A 22G LEFT HAND DIFFICULT TO ASSESS FHR WITH DOPPLER.
[2022-07-15 09:14] LABS: MANUAL DIFF FLAG NO
[2022-07-15] MEDS: 0.9 % Sodium Chloride 1,000 ML 999 ML IV (09:15)
[2022-07-15 09:20] LABS: Basophils Percent Auto 0.4 % (0-2); Eosinophils Absolute Auto 0.1 X10*3/uL (0.0-0.4); Hematocrit 43.1 % (37.0-47.0); Hemoglobin 14.6 g/dl (12.0-16.0); Imm Gran Abs Auto 0.08 X10*3/uL (0.00-0.03); Imm Gran Pct Auto 0.7 % (0.0-0.4); Lymphocytes Percent Auto 8.9 % (20-40); Mean Corpuscular HGB Conc 33.9 g/dl (31.0-35.0); Mean Corpuscular Hemoglobin 28.9 pg (27.0-33.0); Mean Corpuscular Volume 85.2 fL (80.0-98.0); Mean Platelet Volume 8.3 fL (9.4-12.3); Monocytes Absolute Auto 0.5 X10*3/uL (0.1-1.2); Monocytes Percent Auto 4.8 % (2-11); Neutrophils Absolute Auto 9.5 x10*3/uL (2.0-8.3); Neutrophils Percent Auto 84.2 % (45-73); Platelet Count 419 X10*3/uL (160-400); Red Blood Count 5.06 X10*6/uL (4.20-5.50); Red Cell Distribution Width 12.9 % (11.0-16.0); White Blood Count 11.3 X10*3/uL (4.8-10.8)
[2022-07-15 09:23] VITALS: BP 111/65; PULSE 94; O2SAT 99
--- NOTE | 2022-07-15 09:32 | ED.PREGNANCY ---
HPI - General Chief complaint: General Medical Stated complaint: Preg/Water broke 16 wk s Time Seen by Provider: 07/15/22 09:12 Source: patient and old records reviewed Mode of arrival: wheelchair Limitations: no limitations History of Present Illness HPI Narrative: 27 yo female with hx of MS, G2 prior miscarriage US in June 11 w 1d D = US states she went to [facility] 2 days ago with pelvic pain and dx with BV no US then started on what sounds like metro gel. She notes the pain has been worse, no movement felt (has felt some) at work here this AM when she felt severe pain and a gush of fluid. Brought down to the ED. MD Complaint: abdominal pain and vaginal discharge Onset (ago): day(s) (2) Pain Consistency: constant Location: pelvis and abdomen Severity: severe Quality: Cramping Radiation: pelvis and abdomen Relieving factors: none Exacerbating factors: none Associated symptoms: vaginal bleeding and vaginal discharge Vaginal discharge: felt water broke Vaginal bleeding: light Patient : Yes Related Data Home Medications Medication Instructions Recorded Confirmed amlodipine 2.5 mg tablet 2.5 mg PO DAILY 07/02/21 06/04/22 cholecalciferol (vitamin D3) 50 50 mcg PO DAILY 07/02/21 06/04/22 mcg (2,000 unit) capsule Previous Rx's Medication Instructions Recorded vitamins no.144-folic 1 tab PO DAILY 180 days #180 tabs 04/19/22 acid 400 mcg chewable tablet doxylamine succinate 25 mg tablet 25 mg PO BEDTIME 30 days #30 tabs 06/04/22 (Unisom (doxylamine)) pyridoxine (vitamin B6) 25 mg 25 mg PO tid PRN nausea 30 days 06/04/22 tablet (Vitamin B-6) #90 tabs Allergies Allergy/AdvReac Type Severity Reaction Status Date / Time IV contrast AdvReac Mild Dizziness Uncoded 06/04/22 09:09 Review of Systems Review of Systems: Constitutional : No Fever, No Chills ENT/Mouth : No sore throat, No Rhinorrhea Eyes: No Eye Pain, No Redness Cardiovascular : No Chest Pain, No SOB Respiratory : No Cough, No Sputum, No Wheezing Gastrointestinal : no Nausea, No Vomiting, No Diarrhea, positive abdominal pain, Genitourinary : no irregular bleeding, No Dysuria, No Urinary Frequency, positive pelvic pain, pos vag discharge Musculoskeletal : No Myalgias Skin : No rash Neuro : No Weakness, No Headache Psych : pos Anxiety/Panic, No Depression Heme/Lymph: No bruising, No Lymphadenopathy Endocrine : No Polyuria, No Polydipsia All other systems reviewed and are negative [facility] Past Medical History Medical History ASCUS with positive high risk HPV cervical High blood pressure Multiple sclerosis Family History Family History Father Diabetes HTN (hypertension) Paternal Aunt Cancer of breast, female Social History Social History Household Members: Family Housing: House Are you a primary customer care representative to a significant other at home: No Do you presently have visiting nurse or other home services: No Alcohol intake: never Patient Tobacco Use Status: Never used Tobacco Trauma History: SAB 03/04/22 Agree to transfusion: Yes Advance Directives: No Patient : Yes service: No Current occupational status: unemployed Current occupational exposures/hazards: No Sexual orientation: Straight/Heterosexual Gender identity: Female Vision needs: Yes Physical Exam Vital Signs: Vital Signs: Last Vital Signs Temp 97.8 F 07/15/22 09:05 Pulse 94 07/15/22 09:23 Resp 22 H 07/15/22 09:05 BP 111/65 07/15/22 09:23 Pulse Ox 99 07/15/22 09:23 O2 Del Method 07/15/22 09:23 BMI result Body Mass Index 49.4 Appearance: Alert. Oriented X3. Anxious in pain, moderate acute distress Eyes: Pupils equal, round and reactive to light. ENT: Pharynx normal. Neck: Normal inspection. Neck supple. CVS: Normal heart rate and rhythm. Pulses normal. Respiratory: No respiratory distress. Breath sounds normal. Abdomen: Soft and moderate lower abdominal ttp : sterile speculum exam - in vault clear fluid noted moderate amount, mucous seen with mild bleed noted no clots os is open 1 to 2 cm Skin: Skin warm and dry. Normal skin color. Normal skin turgor. Extremities: No lower extremity edema. No calf ttp Neuro: Oriented X 3. No motor deficit. No sensory deficit. Course Course Course Narrative: message sent to Dr. Atkins 930am - sent to [facility] needs expectant management, monitor for infection, will need to deliver vs D+C call to [facility] 945am mom and dad with patient I went over results and concerns with patient - she seems to understand offered medication for cramping she declines at this time repeat call to transfer line 1050am [facility] patient remains stable no further bleeding spoke to resident Kate, accepting attending to go to [facility] - Dr. Thompson Ultrasound of the maternal pelvis is performed using transabdominal and transvaginal transducers. Transvaginal imaging is performed due to inadequate visualization transabdominally. M-mode Doppler is also performed. ? FINDINGS: There is a single intrauterine gestation with an anterior placenta. There is marked oligohydramnios, No appreciable amniotic fluid. There is bradycardia, 81 bpm. Preliminary report provided to Dr. Roberts in emergency department by radiology scheduler. US/US OB pelvic and transvaginal IMPRESSION: 1. Single intrauterine gestation with marked oligohydramnios. No appreciable amniotic fluid. 2. bradycardia, 81 bpm. 3. Anterior placenta.? No visible hemorrhage or hematoma. MDM - OB/Uterine Contractions MDM Narrative Medical decision making narrative: 27 yo female G2 16 w1d D = US here with c/o gush of fluid and severe pain - no fluid in uterus, os is open, low HR - SROM with impending miscarriage at non viable age will discuss with OB. Patient notified of findings. Lab Data Result diagrams: 07/15/22 09:05 07/15/22 09:05 Labs: Lab Results 07/15/22 07/15/22 07/15/22 Range/Units 09:05 09:05 09:28 WBC 11.3 H (4.8-10.8) X10*3/uL RBC 5.06 (4.20-5.50) X10*6/uL Hgb 14.6 (12.0-16.0) g/dl Hct 43.1 (37.0-47.0) % MCV 85.2 (80.0-98.0) fL MCH 28.9 (27.0-33.0) pg MCHC 33.9 (31.0-35.0) g/dl RDW 12.9 (11.0-16.0) % Plt Count 419 H (160-400) X10*3/uL MPV 8.3 L (9.4-12.3) fL Immature Gran % (Auto) 0.7 H (0.0-0.4) % Neut % (Auto) 84.2 H (45-73) % Lymph % (Auto) 8.9 L (20-40) % [place] % (Auto) 4.8 (2-11) % Eos % (Auto) 1.0 (0-4) % Baso % (Auto) 0.4 (0-2) % Lymph # (Auto) 1.0 L (1.2-4.9) X10*3/uL [place] # (Auto) 0.5 (0.1-1.2) X10*3/uL Eos # (Auto) 0.1 (0.0-0.4) X10*3/uL Baso # (Auto) 0.0 (0.0-0.2) X10*3/uL Abs Immat Gran (auto) 0.08 H (0.00-0.03) X10*3/uL Absolute Neuts (auto) 9.5 H (2.0-8.3) x10*3/uL Absolute Nucleated RBC 0.000 (0.0-0.012) X10*3/uL Nucleated RBC % (auto) 0.0 (0.0-0.2) /100WBC Sodium 138 (135-145) mmol/L Potassium 4.4 (3.3-5.1) mmol/L Chloride 107 (96-108) mmol/L Carbon Dioxide 17 L (22-29) mmol/L Anion Gap 18 (12-20) BUN 5 L (9-16) mg/dL Creatinine 0.54 (0.5-1.4) mg/dL Estim Creat Clear Calc 196.9 Estimated GFR > 60 Random Glucose 104 (60-115) mg/dL Calcium 9.4 (8.4-10.2) mg/dL Magnesium 1.8 (1.6-2.6) mg/dL Total Bilirubin 0.5 (0.0-1.0) mg/dL AST 33 H (5-31) U/L ALT 19 (0-31) U/L Alkaline Phosphatase 52 (39-117) U/L Total Protein 7.9 (6.5-8.0) g/dL Albumin 3.9 (3.5-5.0) g/dL COVID-19 (JHOAN) Negative (Negative) COVID-19 Clin Com See Note Procedures Procedure Narrative Procedure Narrative: bedside US limited movement - HR 81, no fluid in uterus noted Discharge Plan Discharge Clinical Impression: SRM (spontaneous rupture of membranes) Anhydramnios Qualifiers: Fetus number: single or unspecified fetus Trimester: second trimester Qualified Code(s): O41.02X0 - Oligohydramnios, second trimester, not applicable or unspecified [facility] Transfer Details: [facility] Prescriptions: No Action amlodipine 2.5 mg tablet 2.5 mg PO DAILY cholecalciferol (vitamin D3) 50 mcg (2,000 unit) capsule 50 mcg PO DAILY no.144-folic acid 400 mcg tablet,chewable 1 tab PO DAILY 180 Days Qty: 180 1RF pyridoxine (vitamin B6) [Vitamin B-6] 25 mg tablet 25 mg PO tid PRN (Reason: nausea) 30 Days Qty: 90 3RF Rx Instructions: may take every 6 - 8 hours for nausea Unisom (doxylamine) 25 mg tablet 25 mg PO BEDTIME 30 Days Qty: 30 3RF
--- NOTE | 2022-07-15 09:41 | PM.OBCN ---
OB Consult Note - HPI Data Service Date: 07/15/22 Primary Care Provider: Rose Mary Brennan MD Narrative I was consulted on Orin Good at 16 weeks and 1 day of gestation by US on 06/11/2020 presenting to the emergency room with gush of fluid this a.m. associated with pelvic pain. The patient [facility] 2 days ago with pelvic pain and was diagnosed with BV no US done then, the patient was discharged on metro gel. Since then the patient stated that her pain has been worse. Bedside US limited movement by Dr. Roberts showed FHR = 81, no amniotic identified. OB PMFSH Past Medical History Medical History ASCUS with positive high risk HPV cervical High blood pressure Multiple sclerosis Family History Family History Father Diabetes HTN (hypertension) Paternal Aunt Cancer of breast, female Social History Social History Household Members: Family Housing: House Are you a primary caretaker resort to a significant other at home: No Do you presently have visiting nurse or other home services: No Alcohol intake: never Patient Tobacco Use Status: Never used Tobacco Trauma History: SAB 03/04/22 Agree to transfusion: Yes Advance Directives: No Patient : Yes service: No Current occupational status: unemployed Current occupational exposures/hazards: No Sexual orientation: Straight/Heterosexual Gender identity: Female Vision needs: Yes Meds Allergies Allergy/AdvReac Type Severity Reaction Status Date / Time IV contrast AdvReac Mild Dizziness Uncoded 06/04/22 09:09 Active Medications: Current Medications Sodium Chloride (Ns) 1,000 mls @ 999 mls/hr IV .Q1H1M NAVJOT Stop: 07/15/22 10:15 Last Admin: 07/15/22 09:15 Dose: 999 mls/hr Home Medications Medication Instructions Recorded Confirmed Last Taken Type amlodipine 2.5 mg tablet 2.5 mg PO DAILY 07/02/21 06/04/22 Unknown History cholecalciferol (vitamin D3) 50 50 mcg PO DAILY 07/02/21 06/04/22 Unknown History mcg (2,000 unit) capsule OB Flowsheet OB Flowsheet & Tools OB Flowsheet Initial Weight: 270 lb Date <del>?</del> EGA Weight Gest Week Fundal Ht Present FHR move Efface % Edema BP PrePreg We Weight GTT <del>?</del> Glucose LV Protein Blood Type 06/04/22 <del>?</del> 10w 4d 272 lb 4 oz (+2 lb 4 oz) 128/80 272 lb 4 oz <del>?</del> KIMI Calculator Estimated Delivery Date Method Current WG Current Estimate 12/27/22 Ultrasound #1 18w 1d Other Estimates 12/29/22 Ultrasound #2 17w 6d Plans Hypertension affecting in first trimester O16.1 PCOS (polycystic ovarian syndrome) E28.2 ASCUS with positive high risk HPV cervical R87.610; R87.810 Obesity, morbid, BMI 40.0-49.9 E66.01 Missed O02.1 Bleeding in early O20.9 Bicornuate uterus Q51.3 Multiple sclerosis G35 History of high platelet count Z86.2 Notes Visit Date: 06/04/22 Last Updated by: Susan Champagne Tripp Sr is a pleasant 27 year old with unknown LMP. H/O miscarriage 03/04/22 treated Mifepristone/Misoprostol by Dr Atkins. Pt had bleeding in early but no bleeding at this time. US 05/06/22 at 6w3d and additional US 05/12/22 at 7w0d give KIMI 12/26/22 and 12/29/22, respectively, GA 10w2d/10w4d respectively. Pt has h/o HTN treated with Amlodipine, B/P today 128/80. Obesity BMI 49.8, bicornuate uterus dx at age 16, PCOS, MS followed by Dr Shepherd, h/o high platelets followed by Hematology at [facility]. Pt reports nausea, fatigue, and breast tenderness. We discussed B6/Unisom and pt would like to try, script sent to pharmacy. Pt was advised breast tenderness is normal in but she could try a well fitting bra to provide extra support. Pt was given the folder, we discussed danger signs, 18/04 MD coverage and how to reach the MD after hours. We reviewed education, increasing her water intake and healthy diet. Pt is aware that is high risk and she will need to be transferred to a [facility] practice. She is already established with [facility] and a records release was signed to initiate transfer. Auscultated FHR 130 bpm and pt was very pleased to hear heartbeat for the first time. labs were ordered including early glucose and HTN labs. Pt is already scheduled for first trimester screening at [facility] 06/09/22. Pt verbalizes understanding and agrees with plan, no further questions. Past Pregnancies Del. Date GA/Weeks Outcome Route Wt Inf Gender Labor Josiane Anesthesia Location Provider Complicate 03/04/22 spontaneous History 2 Elective abortions 0 Para 0 Spontaneous abortions 1 Hx # Term Pregnancies 0 Ectopic pregnancies 0 Hx # Pregnancies 0 Multiple births 0 OB Physical Exam Physical Exam Additional Comments: Reported the Dr. Roberts as the following: heart rate=81 bpm on ultrasound Abdomen abdominal exam= Soft and moderate lower abdominal ttp sterile speculum exam - in vault clear fluid noted moderate amount, mucous seen with mild bleed noted no clots os is open 1 to 2 cm OB Consult Results Labs CBC & Chem 7: 07/15/22 09:05 07/15/22 09:05 Labs: Short CBC 07/15/22 Range/Units 09:05 WBC 11.3 H (4.8-10.8) X10*3/uL Hgb 14.6 (12.0-16.0) g/dl Hct 43.1 (37.0-47.0) % Plt Count 419 H (160-400) X10*3/uL OB - CN: A/P Assessment and Plan (1) SRM (spontaneous rupture of membranes): Status: Inactive Assessment and Plan: Previable Plan Spontaneous rupture of membrane at a previable gestational age is associated with the following risks: - deaths - survival rates in patients who were expectantly managed for periviable PROM are lower before 22 weeks of gestation compared to after 22 weeks of gestation -Significant maternal complications that can occur after periviable PROM including but not limited to: Intraamniotic infection, endometritis, abruptio placentae, and retained placenta, significant maternal morbidity, including sepsis, transfusion, hemorrhage, infection, life-threatening maternal infection, Maternal sepsis and maternal deaths. -Risk of pulmonary hypoplasia after PROM before 24 weeks of gestation which is associated with a high risk of mortality. -Prolonged oligohydramnios also can result in deformations, including Potter-like facies and limb contractures or other positioning abnormalities. The reported frequency of skeletal deformations varies widely. Recommended to Dr. Roberts to transfer the patient to [facility] for further management since there is no maternity unit at [facility]. I spent a total of 20 minutes reviewing the chart, communicating to the ER provider and documenting in the medical record
[2022-07-15 09:42] LABS: Alanine Aminotransferase 19 U/L (0-31); Albumin Level 3.9 g/dL (3.5-5.0); Alkaline Phosphatase 52 U/L (39-117); Anion Gap 18 (12-20); Aspartate Amino Transferase 33 U/L (5-31); Bilirubin Total 0.5 mg/dL (0.0-1.0); Blood Urea Nitrogen 5 mg/dL (9-16); Calcium 9.4 mg/dL (8.4-10.2); Carbon Dioxide 17 mmol/L (22-29); Chloride 107 mmol/L (96-108); Creatinine Clr Calc Pharmacy 196.9; Estimated Glomerular Filt Rate > 60; Glucose Random 104 mg/dL (60-115); Magnesium 1.8 mg/dL (1.6-2.6); Potassium 4.4 mmol/L (3.3-5.1); Sodium 138 mmol/L (135-145); Total Protein 7.9 g/dL (6.5-8.0)
[2022-07-15 10:04] LABS: COVID-19 Test Negative (Negative)
--- NOTE | 2022-07-15 10:52 | PC.NURSE ---
2ND CALL PLACED TO [facility] PT TX LINE PER DR REYES REQUEST D/T STILL WAITING FOR CALL BACK ABOUT THIS PT SADE ANSWERS AND SAID A 2ND PAGE WILL BE SENT OUT
--- NOTE | 2022-07-15 11:01 | PC.NURSE ---
[facility] CALLS BACK @ THIS TIME TO SPEAK WITH DR AMY REYES TAKES OVER CALL RIGHT AWAY
--- NOTE | 2022-07-15 11:38 | PC.NURSE ---
ATA DIRECTOR ON AIR FOR [facility] A AMARAL HERE TO FILL OUT MED NEC AND BOOK TRANSFER @ THIS TIME
--- NOTE | 2022-07-15 11:40 | PC.NURSE ---
@ 1109AM TRANSPORT DIRECTOR CHANNEL FOR [facility] A BERUMEN CONTACTED BY TEXT FOR BLS TO [facility] WET
[2022-07-15 11:51] VITALS: BP 117/67; PULSE 92; RESP 14; TEMP 36.9; O2SAT 97
[2022-07-15 12:15] VITALS: BP 123/67; PULSE 95; RESP 20; O2SAT 97
--- NOTE | 2022-07-15 12:17 | PC.NURSE ---
Report called to [facility]. Pt still reports pelvic pain at this time. Mother at bedside, pt aware of plan for transport and waiting for EMS.
== END 2022-07-15 12:17 | disposition short-term general hospital (02) ==
PROVIDERS: Nurse Practitioner Family; Emergency Provider Emergency Medicine; PCP Internal Medicine
DX: O41.02X0 Oligohydramnios, second trimester, not applicable or unspecified (principal); Z20.822 Contact with and (suspected) exposure to COVID-19; Z79.899 Other long term (current) drug therapy; Z3A.16 16 weeks gestation of pregnancy
CPT/HCPCS: 76801; 76817; 80053; 83735; 85025; 86900; 86901; 87635; 96360; 96361; 99284; 99285

== ENCOUNTER 2022-11-01 10:41 | Outpatient (REF) | payer OTHER, SELFPAY ==
[2022-11-01 11:14] LABS: MANUAL DIFF FLAG NO
[2022-11-01 11:56] LABS: Basophils Absolute Auto 0.1 X10*3/uL (0.0-0.2); Basophils Percent Auto 0.7 % (0-2); Eosinophils Absolute Auto 0.1 X10*3/uL (0.0-0.4); Hematocrit 47.7 % (37.0-47.0); Hemoglobin 15.5 g/dl (12.0-16.0); Imm Gran Abs Auto 0.03 X10*3/uL (0.00-0.03); Imm Gran Pct Auto 0.4 % (0.0-0.4); Lymphocytes Absolute Auto 1.1 X10*3/uL (1.2-4.9); Lymphocytes Percent Auto 16.2 % (20-40); Mean Corpuscular HGB Conc 32.5 g/dl (31.0-35.0); Mean Corpuscular Hemoglobin 27.8 pg (27.0-33.0); Mean Corpuscular Volume 85.5 fL (80.0-98.0); Mean Platelet Volume 8.8 fL (9.4-12.3); Monocytes Absolute Auto 0.4 X10*3/uL (0.1-1.2); Monocytes Percent Auto 5.2 % (2-11); Neutrophils Absolute Auto 5.2 x10*3/uL (2.0-8.3); Neutrophils Percent Auto 75.5 % (45-73); Platelet Count 544 X10*3/uL (160-400); Red Blood Count 5.58 X10*6/uL (4.20-5.50); Red Cell Distribution Width 13.2 % (11.0-16.0); White Blood Count 6.9 X10*3/uL (4.8-10.8)
[2022-11-01 12:09] LABS: Estimated Average Glucose 108 mg/dL; Hemoglobin A1c % 5.4 %
[2022-11-01 12:37] LABS: Syphilis Screen Nonreactive (Nonreactive)
[2022-11-01 12:51] LABS: Vitamin D 25-OH Total 33.1 ng/mL (>30)
[2022-11-01 13:50] LABS: CT PCR NOT DETECTED (Not Detect.); NG PCR NOT DETECTED (Not Detect.)
[2022-11-02 11:09] LABS: Rubella IgG Antibody 2.41 Index
[2022-11-03 07:46] LABS: HBsAGNum1 0.31 S/CO (0.00-0.99); HIV AB/AG Nonreactive (Nonreactive); HIV Num 1 0.09 S/CO (0.00-0.99); Hepatitis B Surface Antigen Negative (Negative); ~HepC Num1 0.08 S/CO (0.00-0.79); ~Hepatitis C Antibody Nonreactive (Nonreactive)
[2022-11-04 21:12] LABS: Anti-Mullerian Hormone-Female 3.36 ng/mL (0.69-13.39)
[2022-11-17 13:28] LABS: Estradiol, Ultrasensitive 23 pg/mL; Follicle Stimulating Hormone 5.9 mIU/mL; Lutenizing Hormone 2.5 mIU/mL
== END 2022-11-01 10:42 | disposition home or self-care (01) ==
LOC: HO.LAB 10:41
PROVIDERS: PCP Internal Medicine; Visit Provider Student in an Organized Health Care Education/Training Program
DX: Z31.49 Encounter for other procreative investigation and testing (principal); E66.01 Morbid (severe) obesity due to excess calories; Q51.818 Other congenital malformations of uterus
CPT/HCPCS: 0353U; 82306; 82397; 82670; 82681; 83001; 83002; 83036; 85025; 86762; 86780; 86803; 87340; 87389

== ENCOUNTER 2022-11-02 15:46 | Outpatient (REF) | payer OTHER, SELFPAY ==
--- NOTE | ~2022-11-02 | MR_ITS ---
EXAMINATION: MR BRAIN WITHOUT AND WITH CONTRAST CLINICAL INFORMATION: Multiple sclerosis. COMPARISON: Brain MRI from 03/03/2021. TECHNIQUE: MRI of the brain was obtained using routine sequences without and with contrast using MS protocol following the administration of 10 mL of Gadavist intravenous contrast. This included a sagittal T2 FLAIR sequence. FINDINGS: There are multiple T2/FLAIR hyperintense lesions consistent with an underlying diagnosis of demyelination. This includes lesions within the subcortical, deep white matter, periventricular, callosal, and cerebellar distributions. New Lesions: None. Enhancing Lesions: None. Restricted Diffusion: None. T1 Black Holes: 2-3 Volume Loss: None. Additional Findings: No overt evidence of edema or expansion of the optic nerves. No focal restricted diffusion is seen to suggest acute or subacute cerebral ischemia. No intracranial mass, intra-axial blood products, midline shift, or extra-axial collection is demonstrated. The ventricles and sulcal spaces appear normal. Normal arterial and venous vascular flow voids are present. No signal abnormalities within the superior sagittal or transverse sinuses. Mild mucosal thickening of the paranasal sinuses. No signal abnormalities within the mastoids. There is a 1.1 cm nodule in the anterior aspect of the superficial lobe of the left parotid gland, similar to exam from 2020. MR/MR head/brain wo/w con IMPRESSION: 1. Stable pattern of supratentorial and infratentorial white matter disease consistent with an underlying diagnosis of demyelination in the appropriate clinical setting. 2. No evidence of disease progression. No new lesions. No abnormal enhancement to suggest active demyelination. 3. Stable 1.1 cm lesion in the superficial lobe of the left parotid gland.
== END 2022-11-02 15:47 | disposition home or self-care (01) ==
LOC: HO.MRI 15:46
PROVIDERS: PCP Internal Medicine; Visit Provider Psychiatry & Neurology Neurology
DX: G35 Multiple sclerosis (principal)
CPT/HCPCS: 70553; A9585

== ENCOUNTER 2022-11-08 15:01 | Outpatient (REF) | payer OTHER, SELFPAY ==
--- NOTE | ~2022-11-08 | MR_ITS ---
EXAMINATION: MR PELVIS WITHOUT AND WITH CONTRAST CLINICAL INFORMATION: Congenital malformation of uterus COMPARISON: None TECHNIQUE: Previous CT of the abdomen and pelvis September 2011. FINDINGS: The uterus is anteverted and measures 7.6 x 3.0 x 5.5 cm in dimension. There are 2 endometrial canals seen high in the fundus of the uterus suggestive of a septate uterus. There is a single endometrial canal in the body and lower uterine segment. Endometrial thickness is normal measuring 0.5 cm. The junctional zone is normal. No focal uterine lesion is seen. There is a nabothian cyst in the cervix. The cervix and vagina are otherwise normal. The ovaries are normal. There are multiple small simple cysts or follicles seen in both ovaries. No ascites or adenopathy. The bladder is not optimally distended. Visualized bowel is normal. No hernia is seen. Vascular structures are normal. There is degenerative disc disease at L5-S1. Bony structures are otherwise normal. MR/MR pelvis wo/w con IMPRESSION: Septate uterus.
== END 2022-11-08 15:02 | disposition home or self-care (01) ==
LOC: HO.MRI 15:01
PROVIDERS: PCP Internal Medicine; Visit Provider Student in an Organized Health Care Education/Training Program
DX: Q51.818 Other congenital malformations of uterus (principal)
CPT/HCPCS: 72197; A9585

== ENCOUNTER 2022-11-10 14:25 | Outpatient (REF) | payer OTHER, SELFPAY | END 2022-11-10 14:26 | disposition home or self-care (01) | LOC: HO.LAB 14:25 | PROVIDERS: PCP Internal Medicine; Visit Provider Psychiatry & Neurology Neurology | DX: G35 Multiple sclerosis (principal); G37.9 Demyelinating disease of central nervous system, unspecified | CPT/HCPCS: 86052 ==

== ENCOUNTER 2023-02-02 08:57 | Outpatient (REF) | payer OTHER, SELFPAY ==
[2023-02-02 10:14] LABS: Estimated Average Glucose 97 mg/dL
[2023-02-02 10:21] LABS: Alanine Aminotransferase 47 U/L (0-31); Albumin Level 4.2 g/dL (3.5-5.0); Alkaline Phosphatase 67 U/L (39-117); Anion Gap 11 (12-20); Aspartate Amino Transferase 29 U/L (5-31); Bilirubin Total 0.9 mg/dL (0.0-1.0); Blood Urea Nitrogen 7 mg/dL (9-16); Calcium 9.5 mg/dL (8.4-10.2); Carbon Dioxide 27 mmol/L (22-29); Chloride 108 mmol/L (96-108); Cholesterol 135 mg/dL; Estimated Glomerular Filt Rate > 60; Glucose Random 85 mg/dL (60-115); HDL Cholesterol 31 mg/dL; LDL Cholesterol Calculated 91 mg/dl; Potassium 4.8 mmol/L (3.3-5.1); Sodium 141 mmol/L (135-145); Total Protein 7.4 g/dL (6.5-8.0); Triglycerides 67 mg/dL
== END 2023-02-02 08:58 | disposition home or self-care (01) ==
LOC: HO.LAB 08:57
PROVIDERS: PCP Internal Medicine; Visit Provider Internal Medicine
DX: Z00.00 Encounter for general adult medical examination without abnormal findings (principal)
CPT/HCPCS: 36415; 80053; 80061; 83036

== ENCOUNTER → 2023-03-03 14:17 | Outpatient (BNVA) | payer OTHER, SELFPAY | PROVIDERS: PCP Internal Medicine; Referring Provider Internal Medicine; Visit Provider Physician Assistant Surgical ==

== ENCOUNTER → 2023-03-24 15:44 | Outpatient (BNVA) | payer OTHER, SELFPAY | PROVIDERS: PCP Internal Medicine; Visit Provider Physician Assistant Surgical ==

== ENCOUNTER 2023-04-01 07:25 | Outpatient (REF) | payer OTHER, SELFPAY ==
--- NOTE | ~2023-04-01 | XR_ITS ---
EXAMINATION: XR CHEST CLINICAL INFORMATION: Morbid obesity due to excessive calories. COMPARISON: Chest done on 02/15/2018. TECHNIQUE: 2 views of the chest were obtained. FINDINGS: No significant abnormality is noted involving the heart, lungs, mediastinum, bony thorax or soft tissues. No significant change. XR/XR chest 2V IMPRESSION: Unremarkable examination.
[2023-04-01 09:24] LABS: C Reactive Protein 0.94 mg/dL (< or = 0.50); Cholesterol 142 mg/dL; HDL Cholesterol 34 mg/dL; Iron 86 mcg/dL (30-160); LDL Cholesterol Calculated 92 mg/dl; Percent Iron Saturation 28 % (15-50); Total Iron Binding Capacity 303 mcg/dL (228-428); Triglycerides 82 mg/dL; Unsaturated Iron Binding 217 ug/dL
[2023-04-01 09:53] LABS: Ferritin 109 ng/mL (10-122); Insulin 11 uU/mL (2-29); TSH reflex Free T4 1.67 uIU/mL (0.32-4.0); Vitamin D 25-OH Total 39.4 ng/mL (>30)
[2023-04-04 13:33] LABS: Calcium (PTHI) 9.6 mg/dL (8.6-10.2); PTHI 52 pg/mL (16-77)
[2023-04-05 14:43] LABS: Vitamin B1 12 nmol/L (8-30)
[2023-04-06 00:52] LABS: Zinc 75 mcg/dL (60-130)
[2023-04-06 05:17] LABS: Vitamin A 39 mcg/dL (38-98)
== END 2023-04-01 07:26 | disposition home or self-care (01) ==
LOC: HO.LAB 07:25
PROVIDERS: Visit Provider Physician Assistant Surgical
DX: E66.01 Morbid (severe) obesity due to excess calories (principal)
CPT/HCPCS: 36415; 71046; 80061; 82306; 82607; 82728; 82746; 83525; 83540; 83970; 84425; 84443; 84590; 84630; 85025; 86140; 93005

== ENCOUNTER 2023-04-04 07:48 | Outpatient (REF) | payer OTHER, SELFPAY ==
--- NOTE | ~2023-04-04 | FL_ITS ---
EXAMINATION: XR FLUOROSCOPY UPPER GI WITH AIR CLINICAL INFORMATION: Morbid/severe obesity due to excess calories. COMPARISON: None available. TECHNIQUE: Routine upper GI air-contrast study was performed in upright and lying position. FINDINGS: Following oral administration of thick barium and effervescent granules, there is normal propagation of bolus from the oral cavity through the pharynx and into the esophagus without any evidence of obstruction, narrowing or stricture. On placing patient supine and prone, the course, caliber and peristalsis of the stomach, dorsal bulb and this CT are normal. The mucosal pattern of the stomach and the duodenum is normal. No gastroesophageal reflux or hiatal hernia. FLUOROSCOPY TIME: 1.3 minutes. DOSE AREA PRODUCT: 47.928 uGy-m2 (microgray-meter squared) FL/FL upper GI w air IMPRESSION: Unremarkable upper GI examination.
== END 2023-04-04 07:49 | disposition home or self-care (01) ==
LOC: HO.XRAY 07:48
PROVIDERS: Visit Provider Physician Assistant Surgical
DX: E66.01 Morbid (severe) obesity due to excess calories (principal)
CPT/HCPCS: 74246

== ENCOUNTER → 2023-04-04 07:49 | Outpatient (BNV) | payer OTHER, SELFPAY | PROVIDERS: Visit Provider Radiology Diagnostic Radiology | DX: E66.01 Morbid (severe) obesity due to excess calories (principal) | CPT/HCPCS: 74246 ==

== ENCOUNTER 2023-04-08 10:33 | Outpatient (AMB) | payer OTHER, SELFPAY ==
--- NOTE | 2023-04-08 10:58 | MHC.AMNUTRGE ---
Intake VS Expanded 04/08/23 11:13 Height 5 ft 2 in Weight 259 lb BMI 47.4 Body Fat 126.8 Body Fat Percentage 49.0 Muscle Mass 125.4 Visceral Mass 14 Water Mass 95.0 BMR 1,931 Intake Visit Reasons: (OV) Initial Nutrition [employer] Required: No Allergies IV contrast Adverse Reaction (Mild, Uncoded 06/04/22 09:09) Dizziness HPI Nutrition Presentation Reason for consult elevated BMI Diet Assmnt Details Is using Premier shakes premade , 1 daily. Example yesterday: egg sandwich on a water roll from caf at [facility] protein shake and banana 2 cookies dinner- [employer] Exercise: [employer] 30-60 minutes treadmill for 30 minutes . If tired will go home , or will do more if able . its become an addiction Pt sshares she needs to have a MEAL TEMPERER surgery but was told she needed to reach 235 pounds. she states this is her goal. She isn't sure if she wants to pursue bariatric surgery. She shares that she wants to work on habit change at her pace. Dietary counseling reduction Who buys your food self Who prepares/cooks your food self Meal frequency regular: breakfast, lunch, dinner and snacks Lifestyle Eating out 1-3 times/week Food frequency Vegetables: never ( hard no for me ), Meats/poultry/fish (protein): daily (chicken, beef, pork, but no seafood ), Restaurants/fast foods: several times weekly, Water: daily, Soda: occasionally, Juice: occasionally and Coffee: never Diagnosis Nutrition problem #1 overweight/obesity As related to (etiology) #1 excess energy intake and physical inactivity As evidenced by (sign/symptom) #1 high BMI Monitoring/Goals Nutrition problem monitoring total energy intake, level of knowledge/skill, total PRO intake, total CHO intake, weight and oral fluids Outcome progress progressing Learning/Education Readiness to learn good Stages of change preparation Educational materials provided Yes Most Recent Diabetes Results: Cholesterol 142 mg/dL 04/01/23 HDL Cholesterol 34 mg/dL 04/01/23 Triglycerides 82 mg/dL 04/01/23 Creatinine 0.69 mg/dL (0.5-1.4) 02/02/23 Blood Urea Nitrogen 7 mg/dL (9-16) L 02/02/23 Sodium 141 mmol/L (135-145) 02/02/23 Potassium 4.8 mmol/L (3.3-5.1) 02/02/23 Chloride 108 mmol/L (96-108) 02/02/23 Carbon Dioxide 27 mmol/L (22-29) 02/02/23 Calcium 9.5 mg/dL (8.4-10.2) 02/02/23 AST 29 U/L (5-31) 02/02/23 ALT 47 U/L (0-31) H 02/02/23 Total Protein 7.4 g/dL (6.5-8.0) 02/02/23 Albumin 4.2 g/dL (3.5-5.0) 02/02/23 [facility] Medical History (Updated 04/04/23 @ 08:40 by KAI Cline) ASCUS with positive high risk HPV cervical High blood pressure Multiple sclerosis Surgical History Hx of wisdom tooth extraction Family History Father Diabetes HTN (hypertension) Paternal Aunt Cancer of breast, female Mother No problems noted. Brother No problems noted. Sister No problems noted. Social History Household Members: Family Both parents involved: Yes Caregiver staying overnight: No Housing: House Are you a primary intensive care unit nurse to a significant other at home: No Do you presently have visiting nurse or other home services: No 75 years or older and lives alone: No Alcohol intake: never Patient Tobacco Use Status: Never used Tobacco Trauma History: SAB 03/04/22 Agree to transfusion: Yes service: No Current occupational status: unemployed Current occupational exposures/hazards: No Sexual orientation: Straight/Heterosexual Gender identity: Female Vision needs: Yes Female Reproductive History Menstrual Age of Menarche: 15 Assessment & Plan Assessment & Plan (1) Morbid obesity: Code(s): E66.01 - Morbid (severe) obesity due to excess calories Patient Instructions: Pt remains unsure if she would like to pursue bariatric surgery. she is aware of the timeline - would be several months until she can have bariatric surgery, then needs to wait 12-18MO PO before trying to get . She still has a lot of changes to make. Recommended focusing on the following for now: structured meals, high protein, low carb for PCOS. Avoid skipping. Premier shakes premade [place] Coding Level of Care Code Nutr Indiv Intake (61337) Diagnoses Morbid obesity E66.01 Time Spent (min) 45
[2023-04-08 11:13] VITALS: BMI 47.4
== END 2023-04-08 11:59 | disposition home or self-care (01) ==
PROVIDERS: PCP Internal Medicine; Referring Provider Physician Assistant Surgical; Visit Provider Dietitian, Registered
DX: E66.01 Morbid (severe) obesity due to excess calories (principal)

== ENCOUNTER → 2023-04-08 10:33 | Outpatient (BNVA) | payer OTHER, SELFPAY | PROVIDERS: PCP Internal Medicine; Referring Provider Physician Assistant Surgical; Visit Provider Dietitian, Registered | DX: E66.01 Morbid (severe) obesity due to excess calories (principal); Z68.42 Body mass index [BMI] 45.0-49.9, adult; Z71.3 Dietary counseling and surveillance | CPT/HCPCS: 97802 ==

== ENCOUNTER 2023-04-12 11:50 | Outpatient (AMB) | payer OTHER, SELFPAY ==
--- NOTE | 2023-04-12 12:11 | A.OFFWM_ITS ---
Intake Intake Visit Reasons: (OV) BH Intake Allergies IV contrast Adverse Reaction (Mild, Uncoded 06/04/22 09:09) Dizziness PFSH Medical History (Updated 04/04/23 @ 08:40 by KAI Cline) ASCUS with positive high risk HPV cervical High blood pressure Multiple sclerosis Surgical History Hx of wisdom tooth extraction Family History Father Diabetes HTN (hypertension) Paternal Aunt Cancer of breast, female Mother No problems noted. Brother No problems noted. Sister No problems noted. Social History Household Members: Family Both parents involved: Yes Caregiver staying overnight: No Housing: House Are you a primary caregiver services home to a significant other at home: No Do you presently have visiting nurse or other home services: No 75 years or older and lives alone: No Alcohol intake: never Patient Tobacco Use Status: Never used Tobacco Trauma History: SAB 03/04/22 Agree to transfusion: Yes service: No Current occupational status: unemployed Current occupational exposures/hazards: No Sexual orientation: Straight/Heterosexual Gender identity: Female Vision needs: Yes Female Reproductive History Menstrual Age of Menarche: 15 Behavioral Health Assessment Weight Management Therapy Therapy Notes Details PT is a 28 year old female who presents for initial BH assessment as part of surgical Weight-loss management program. PT denies any past history of mental health diagnosis or ever been in counseling services, also denied any concerns with SI and/or self/other-harm. However, PT reported been struggling with some sadness and anxiety after miscarriage last year and currently working towards being healthy to become a mom. PT was provided with a reflective journal to use as part of habit building and to remain consistent of areas to improve, she was also advised to work on small objectives and monitor lapses with stress that could lead to stress-eating. PT was provided with a mindfulness activity to manage intrusive thoughts around food and/or impulses for comfort-eating. Scores from BES indicate lower risk for binge eating behavior, and scores from PHQ-9 shows no active symptoms of depression. However, the patient is advised to seeks counseling to work on grief after recent loss. Presenting Concerns Referral Source WMP Provider. KAI Flores. Reason for referral Completion of behavioral health assessment as part of process for weight-loss surgery. Precipitating Event Obesity, complications after miscarriage. Living Situation At risk of losing current housing? No Satisfied with current living situation? Yes Comments Pt lives with parents and siblings. Food/Weight/Diet Expectations of change Pt wants to lose weight in order to access surgery for uterine issues. Per provider note, since PT is on the track for surgical weight-loss, initial goal is to lose 10% of her weight before bariatric surgery, which is about 26 lbs. Ultimate weight goal: 242 lbs. before surgery. History/Relationship with food PT loves foods, meals are -style. She tends to skip meals, specially breakfast and/or if busy or not feeling hungry can also skip lunch. Her portions were bigger, however she only eats until feels full. Dinner is style. Rice/beans/protein-meat or take-out (what ever she's feeling for the day) Pt also reports she has challenges with stress-eating, when having these moments she goes to [employer]. She doesn't like sweets, is mainly salty-carbs eating interest. History/Relationship with weight Pt reported she was not overweight in childhood. She was very active and involved in sports. Started gaining weight when she was put on control at age 16. She doesn't weight herself and only realized her weight is an issue is when getting out of breath. She feels confident with her body and doesn't feel ashamed to be overweight. History/Relationship with dieting Never tried anything to loss weight. Binge Eating Do you frequently eat large amounts of food in short periods of time, not feeling physically hungry? No Do you feel out of control when you eat a large amount of food in a short period of time? No Do you eat large amounts of food rapidly and typically alone? No Night Eating Do you wake up at least once during the night to eat? No If you wake up in the night, do you find that it is necessary to eat something in order to fall back asleep? No Do you have little or no appetite in the morning and feel very hungry in the evening, often overeating between dinner and when you go to bed? No Social History Family history and relationship Pt is in serious, long-term relationship, she has no children. 2 siblings, parents are alive and together. They are all very close. 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 Social support Family, friend, partner. Community support Provider. Orthodox/Spirituality None. Cultural/Ethnic information , parents are [place]. Pt is bilingual. Legal Involvement and History Current or historical involvement with the legal system? None reported. Education Highest grade completed 12th grade, Associate degree in [employer]. Currently enrolled in educational program? No Interested in further educational program? Yes (Pt was enrolled in school and had to withdraw last year. Might go back in the future. ) Educational Interests/Skills Business, health, but the administrative part. 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 ) Wants help to find employment? No Meaningful activities Watch tv, playing games, go outside, family activities. Financial Situation Describe current financial situation Comfortable and Occasional struggle Financial assistance? None Service Service? No Mental Health and Addiction Treatment Current/Past substance abuse? No Current/Past addictive behavior concerns? No Psychiatric history None Medical and Physical Health Summary Additional Medical History not covered in history None reported. Sexual History concerns None reported. Physical exam in the last year? Yes Pain Screening Current pain? No Pain in the last few months? No Medications Is the patient compliant with medications? Yes Does the patient have Devine Guardian in place? Not applicable Does the patient use complimentary health approaches? No Trauma/Abuse History History of trauma? Yes (Recent miscarriage.) Questionnaires PHQ-9 Over the last 2 weeks, how often have you been bothered by any of the following problems? 1. Little interest or pleasure in doing things: not at all 2. Feeling down, depressed, or hopeless: not at all 3. Trouble falling or staying asleep, or sleeping too much: not at all 4. Feeling tired or having little energy: several days 5. Poor appetite or overeating: not at all 6. Feeling bad about yourself - or that you are a failure or have let yourself or your family down: not at all 7. Trouble concentrating on things, such as reading the newspaper or watching television: not at all 8. Moving or speaking so slowly that other people could have noticed. Or the opposite - being so fidgety or restless that you have been moving around a lot more than usual: not at all 9. Thoughts that you would be better off or of hurting yourself in some way: not at all Total score: 1 Source: Developed by Drs. Wisam Jacob, Radha Liao, Jamshid Mccormack and colleagues, with an educational cindy from [employer]. Binge Eating Scale Group 1 A. I don't feel self-conscious about my wt. or body size when I'm with others. B. I feel concerned about how I look to others, but it normally does not make me fell disappointed with myself C. I do get self-conscious about my appearance and wt. which makes me feel disappointed in myself. D. I feel very self-conscious about my wt. and frequently I feel intense shame and disgust for myself. I try to avoid social contacts because of my self- consciousness. Response Group 1: A Group 2 A. I don't have any difficulty eating slowly in the proper manner. B. Although I seem to gobble down foods, I don't end up feeling stuffed because of eating to much. C. At times, I tend to eat quickly and then, I feel uncomfortably full afterwards. D. I have the habit of bolting down my food, without really chewing it. When this happens I usually feel uncomfortably stuffed because I've eaten to much. Response Group 2: C Group 3 A. I feel capable to control my eating urges when I want to. B. I feel like I have failed to control my eating more than the average person. C. I feel utterly helpless when it comes to feeling in control of my eating urges. D. Because I feel so helpless about controlling my eating I have become very desperate about trying to get control. Response Group 3: A Group 4 A. I don't have the habit of eating when I'm bored. B. I sometimes eat when I'm bored, but often I'm able to get busy and get my mind off food. C. I have a regular habit of eating when I'm bored, but occasionally, I can use some other activity to get my mind off eating. D. I have a strong habit of eating when I'm bored. Nothing seems to help me breath the habit. Response Group 4: B Group 5 A. I'm usually physically hungry when I eat something. B. Occasionally, I eat something on impulse even though I really am not hungry. C. I have the regular habit of eating foods, that I might not really enjoy, to satisfy a hungry feeling even though physically, I don't need the food. D. Although I'm not physically hungry, I get a hungry feeling in my mouth that only seems to be satisfied when I eat a food, like sandwich, that fills my mouth. Sometimes, when I eat the food to satisfy my mouth hunger, I then spit the food out so I won't gain weight. Response Group 5: B Group 6 A. I don't feel any guilt or self-hate after I overeat. B. After I overeat, occasionally I feel guilt or self-hate. C. Almost all the time I experience strong guilt or self-hate after I overeat. Response Group 6: A Group 7 A. I don't lose total control of my eating when dieting even after periods when I overeat. B. Sometimes when I eat a forbidden food on a diet, I feel like I blew it and eat even more. C. Frequently, I have the habit of saying to myself, I've blown it now, why not go all the way, when I overeat on a diet. When that happens I eat more. D. I have a regular habit of starting a strict diets for myself but I break the diets by going on an eating binge. My life seems to be either a feast or famine. Response Group 7: A Group 8 A. I rarely eat so much food that I feel uncomfortably stuffed afterwards. B. Usually about once a month, I each such a quantity of food, I end up feeling very stuffed. C. I have regular periods during the month when I eat large amounts of food, either at mealtime or at snacks. D. I eat so much food that I regularly feel quite uncomfortable after eating and sometimes a bit nauseous. Response Group 8: A Group 9 A. My level of calorie intake does not go up very high or go down very low on a regular basis. B. Sometimes after I overeat, I will try to reduce my caloric intake to almost nothing to compensate for the excess calories I've eaten. C. I have a regular habit of overeating during the night. It seems that my routine is not to be hungry in the morning but overeat in the evening. D. In my adult years, I have had week-long periods where I practically starve myself. This follows periods when I overeat. It seems I live a life of either feast or famine. Response Group 9: A Group 10 A. I usually am able to stop eating when I want to. I know when enough is enough. B. Every so often, I experience a compulsion to eat which I can't seem to control. C. Frequently, I experience strong urges to eat which I seem unable to control, but at other times I can control my eating urges. D. I feel incapable of controlling urges to eat. I have a fear of not being able to stop eating voluntarily. Response Group 10: A Group 11 A. I don't have any problem stopping eating when I feel full. B. I usually can stop eating when I feel full but occasionally overeat leaving me feeling uncomfortably stuffed. C. I have a problem stopping eating once I start and usually I feel uncomfortably stuffed after I eat a meal. D. Because I have a problem not being able to stop eating when I want, I sometimes have to induce vomiting to relieve my stuffed feeling. Response Group 11: A Group 12 A. I seem to eat just as much when I'm with others, Family social gatherings as when I'm by myself. B. Sometimes, when I'm with other persons, I don't eat as much as I want to eat because I'm self-conscious about my eating. C. Frequently, I eat only a small amount of food when others are present, because I'm very embarrassed about my eating. D. I feel so ashamed about overeating that I pick times to overeat when I know no one will see me. I feel like a closet eater. Response Group 12: A Group 13 A. I eat three meals a day with only an occasional between meal snack. B. I eat 3 meals a day, but I also normally snack between meals. C. When I am snacking heavily, I get in the habit of skipping regular meals. D. There are regular periods when I seem to be continually eating, with no planned meals. Response Group 13: A Group 14 A. I don't think much about trying to control unwanted eating urges. B. At least some of the time, I feel my thoughts are pre-occupied with trying to control my eating urges. C. I feel that frequently I spend much time thinking about how much I ate or about trying not to eat anymore. D. It seems to me that most of my waking hours are pre-occupied by thoughts about eating or not eating. I feel like I'm constantly struggling not to eat. Response Group 14: A Group 15 A. I don't think about food a great deal. B. I have strong craving for food but they last only for brief periods of time. C. I have days when I can't seem to think about anything else but food. D. Most of my days seem to be pre-occupied with thoughts about food. I feel like I live to eat. Response Group 15: A Group 16 A. I usually know whether or not I'm physically hungry. I take the right portion of food to satisfy me. B. Occasionally, I feel uncertain about knowing whether or not I'm physically hungry. A these times it's hard to know how much food I should take to satisfy me. C. Even though I might know how many calories I should eat, I don't have any idea what is a normal amount of food for me. Response Group 16: A Binge Eating Score: 4 Score less than 17 Minimal Risk Score between 18-26 Moderate Risk Score between 27-46 High Risk Assessment & Plan Assessment & Plan (1) Adjustment disorder: Code(s): F43.20 - Adjustment disorder, unspecified Plan PT remains unsure if she would like to pursue bariatric surgery, so it is suggested she work on habit change and utilize provided strategies to manage current challenges and achieve personal objectives. So, since PT is uncertain about pursuing bariatric surgery she will need another appointment if decides to move forward with surgery. Coding Level of Care Code New Pt Psy Diag Eval (13979) Patient Type New Diagnoses Adjustment disorder F43.20 Time Spent (min) 75 Comment 12:00-1:15pm
== END 2023-04-12 13:48 | disposition home or self-care (01) ==
LOC: HO.HBST 11:50
PROVIDERS: PCP Internal Medicine; Referring Provider Physician Assistant Surgical; Visit Provider Counselor Mental Health
DX: F43.20 Adjustment disorder, unspecified (principal)
CPT/HCPCS: 90791

== ENCOUNTER → 2023-04-12 11:50 | Outpatient (BNVA) | payer OTHER, SELFPAY | PROVIDERS: PCP Internal Medicine; Referring Provider Physician Assistant Surgical; Visit Provider Counselor Mental Health ==

== ENCOUNTER 2023-04-14 07:47 | Outpatient (REF) | payer OTHER, SELFPAY ==
--- NOTE | ~2023-04-14 | US_ITS ---
EXAMINATION: US COMPLETE ABDOMEN WITH LIVER ELASTOGRAPHY CLINICAL INFORMATION: Obesity. COMPARISON: None available. TECHNIQUE: Real-time imaging of the abdominal viscera. Noninvasive ultrasound liver fibrosis assessment is performed using Jin ElastPQ point quantification shear wave elastography (2D-SWE) with a C5-2 MHz transducer. Multiple elastography samples are obtained. FINDINGS: PANCREAS: Limited. The visualized pancreatic head and body are normal in appearance. The remainder of the pancreas is obscured from visualization by the overlying bowel gas. ABDOMINAL AORTA: The proximal, middle, and distal aortic segments are normal in caliber. INFERIOR VENA CAVA: Visualized portions are normal. LIVER: The liver demonstrates normal size, contour and geographically increased echogenicity. No focal lesion or intrahepatic biliary duct dilatation. The right lobe measures 16.8 cm in length. The left lobe measures 13.5 cm in length. Portal flow is towards the liver (hepatopetal). Shear wave liver elastography median stiffness is 1.30 m/s (reference: normal median stiffness is 1.3 m/s or less). IQR/median stiffness to assess sampling precision is 0.05 (reference: good quality data set is IQR/median stiffness of 0.15 or less). GALLBLADDER: Normal. The gallbladder is physiologically distended without evidence of stones, sludge, polyps, wall thickening or pericholecystic fluid. COMMON BILE DUCT: Normal in caliber measuring 0.5 cm in diameter. RIGHT KIDNEY: Normal. No hydronephrosis. No renal calculi or focal parenchymal lesions. The kidney measures 11.6 cm in maximum dimension. LEFT KIDNEY: Normal. No hydronephrosis. No renal calculi or focal parenchymal lesions. The kidney measures 11.9 cm in maximum dimension. SPLEEN: Normal. The spleen measures 10.0 cm in maximum dimension. FREE FLUID: None. US/US abdomen comp w elastography IMPRESSION: 1. There is geographic hepatic steatosis. No focal hepatic mass or intrahepatic biliary ductal dilatation is seen. 2. Liver elastography: Measurements are consistent with a high probability of normal liver stiffness. REFERENCE: Society of Radiologists in Ultrasound Liver Stiffness Thresholds (2019): LIVER STIFFNESS THRESHOLDS: *Liver Stiffness equal or less than 1.3 m/s: High probability of being normal. *Liver Stiffness less than 1.7 m/s: In the absence of other known clinical signs, rules out compensated advanced chronic liver disease. *Liver Stiffness 1.7-2.1 m/s: Suggestive of compensated advanced chronic liver disease but need further test for confirmation. *Liver Stiffness over 2.1 m/s: Rules in compensated advanced chronic liver disease. *Liver Stiffness over 2.4 m/s: Suggestive of clinically significant portal hypertension. QUALITY OF DATA SET: *IQR/Median value equal or less than 0.15 implies a quality data set. *IQR/Median value over 0.15 implies a poor quality data set. SIGNIFICANT CHANGE FROM PRIOR EXAM: Significant change if liver stiffness measurement is 10% or greater from prior exam. OTHER CONSIDERATIONS: The stage of liver fibrosis may be overestimated in the setting of acute hepatitis, liver inflammation, elevated liver function tests, hepatic vascular congestion, obstructive cholestasis, non-fasting state, and infiltrative diseases such as amyloidosis and lymphoma. In some patients with NAFLD, the liver stiffness thresholds for compensated advanced chronic liver disease may be lower. In causes other than viral hepatitis and NAFLD, liver stiffness thresholds are not well established.
== END 2023-04-14 07:48 | disposition home or self-care (01) ==
LOC: HO.US 07:47
PROVIDERS: Visit Provider Physician Assistant Surgical
DX: E66.01 Morbid (severe) obesity due to excess calories (principal)
CPT/HCPCS: 76705; 76981

== ENCOUNTER 2023-04-19 07:33 | Emergency (ER) | payer OTHER, SELFPAY ==
--- NOTE | ~2023-04-19 | CT_ITS ---
EXAMINATION: CT HEAD WITHOUT CONTRAST CLINICAL INFORMATION: Acute severe headache. COMPARISON: Brain MRI from 03/03/2021 and 11/02/2022. TECHNIQUE: Contiguous axial imaging was performed from the skull base to vertex without intravenous administration of contrast. This CT examination was performed using dose optimization techniques as appropriate, variously including the following: *Automated exposure control *Adjustment of mA and/or kV according to patient size (this includes techniques or standardized protocols for targeted exams where dose is matched to indication/reason for exam; i.e. extremities or head) *Use of iterative reconstruction technique DLP: 822 mGy-cm FINDINGS: The brain parenchyma has normal attenuation on this noncontrast head CT exam.. The buchanan-white matter differentiation is well preserved. No evidence of an acute major vascular territory infarction. No intracranial hemorrhage, extra-axial fluid collection, focal mass effect or midline shift. The ventricles have normal size and configuration; no hydrocephalus. The brainstem and cerebellum have a normal appearance. The cerebellar tonsils are in normal position. The calvarium is intact. There is a mucus retention cyst along the posterior wall of the right maxillary sinus and there is moderate mucosal thickening of the left sphenoid sinus. No air-fluid levels within paranasal sinuses. The mastoid air cells and middle ear cavities are well aerated. The orbits and globes are unremarkable. The temporomandibular joints are normal. A 1 cm noncalcified nodule or mildly enlarged lymph node in the superficial left parotid gland is unchanged in size compared to 03/03/2021. CT/CT head/brain wo IV con IMPRESSION: * No intracranial hemorrhage or other acute intracranial pathology. * Moderate mucosal thickening of left sphenoid sinus and mucous retention cyst of the right maxillary sinus. * A 1 cm nodule within the superficial lobe of the left parotid gland remains unchanged compared to 03/03/2021.
[2023-04-19 07:34] VITALS: PULSE 97; O2SAT 98; BMI 49.1
[2023-04-19 07:39] VITALS: BP 127/77; PULSE 54; RESP 18; TEMP 36.9; O2SAT 98
[2023-04-19] MEDS: Acetaminophen 325 MG TABLET 975 MG PO (09:07)
[2023-04-19] MEDS: Metoclopramide HCl 10 MG/2 ML VIAL IVPUSH (09:07)
[2023-04-19] MEDS: Dihydroergotamine Mesylate 1 MG/ML AMPUL IVPUSH (09:07)
[2023-04-19] MEDS: dexAMETHasone sod phosphate 10 MG/ML VIAL IVPUSH (09:08)
[2023-04-19] MEDS: Magnesium Sulfate/H2O 2 GM/50 ML PIGGYBACK IV (09:09)
[2023-04-19] MEDS: 0.9 % Sodium Chloride 1,000 ML 999 ML IV (09:09)
[2023-04-19 09:21] LABS: MANUAL DIFF FLAG NO
[2023-04-19 09:22] LABS: Basophils Percent Auto 0.6 % (0-2); Eosinophils Absolute Auto 0.2 X10*3/uL (0.0-0.4); Eosinophils Percent Auto 2.4 % (0-4); Hematocrit 44.1 % (37.0-47.0); Hemoglobin 14.7 g/dl (12.0-16.0); Imm Gran Abs Auto 0.02 X10*3/uL (0.00-0.03); Imm Gran Pct Auto 0.3 % (0.0-0.4); Lymphocytes Absolute Auto 1.3 X10*3/uL (1.2-4.9); Lymphocytes Percent Auto 18.2 % (20-40); Mean Corpuscular HGB Conc 33.3 g/dl (31.0-35.0); Mean Corpuscular Hemoglobin 28.7 pg (27.0-33.0); Mean Corpuscular Volume 86.1 fL (80.0-98.0); Mean Platelet Volume 8.4 fL (9.4-12.3); Monocytes Absolute Auto 0.5 X10*3/uL (0.1-1.2); Monocytes Percent Auto 7.5 % (2-11); Platelet Count 444 X10*3/uL (160-400); Red Blood Count 5.12 X10*6/uL (4.20-5.50); Red Cell Distribution Width 12.8 % (11.0-16.0)
[2023-04-19 09:36] LABS: Anion Gap 8 (12-20); Blood Urea Nitrogen 7 mg/dL (9-16); Calcium 9.2 mg/dL (8.4-10.2); Carbon Dioxide 24 mmol/L (22-29); Chloride 111 mmol/L (96-108); Creatinine Clr Calc Pharmacy 166.8; Estimated Glomerular Filt Rate > 60; Glucose Random 87 mg/dL (60-115); Sodium 139 mmol/L (135-145)
--- NOTE | 2023-04-19 10:25 | PC.NURSE ---
Pt resting quietly, sleeping with lights off.
--- NOTE | 2023-04-19 10:35 | ED_ITS ---
HPI - General Adult General Chief complaint: General Medical Stated complaint: outpatient response Time Seen by Provider: 04/19/23 08:14 Source: patient Mode of arrival: ambulatory Limitations: no limitations History of Present Illness HPI narrative: 28-year-old female presents with a severe headache. The headache is frontal. Feels like somebody is stabbing her forehead. Is rated as a 10/10. The pain radiates throughout her whole head. It is associated with nausea no vomiting. She also complains of photo and phonophobia. She denies any focal deficits. Patient does have a history of migraine headaches. This is typical for her except worsening usual. Patient reports her body having clenched up but denies any loss of consciousness. Reportedly the patient is under significant amount of stress at home. Related Data Home Medications Medication Instructions Recorded Confirmed amlodipine 2.5 mg tablet 2.5 mg PO DAILY 07/02/21 03/24/23 cholecalciferol (vitamin D3) 50 50 mcg PO DAILY 07/02/21 03/24/23 mcg (2,000 unit) capsule metformin 500 mg tablet 1,000 mg PO BID 03/03/23 03/24/23 Previous Rx's Medication Instructions Recorded cyanocobalamin (vitamin B-12) 500 500 mcg PO DAILY 90 days #90 tabs 04/01/23 mcg tablet metoclopramide HCl 10 mg tablet 10 mg PO Q6H PRN nausea and/or 04/19/23 (Reglan) headache #10 tabs Allergies Allergy/AdvReac Type Severity Reaction Status Date / Time IV contrast AdvReac Mild Dizziness Uncoded 06/04/22 09:09 Review of Systems Review of Systems: CONSTITUTIONAL: Denies weight loss, fever and chills. HEENT: Denies changes in vision and hearing. RESPIRATORY: Denies SOB and cough. CV: Denies palpitations no CP. GI: Denies abdominal pain, nausea, vomiting and diarrhea. : Denies dysuria and urinary frequency. MSK: Denies myalgia and joint pain. SKIN: Denies rash and pruritus. NEUROLOGICAL: + headache no syncope. PSYCHIATRIC: Denies recent changes in mood. Denies anxiety and depression. All other ROS are negative unless in HPI PMFSH Past Medical History Medical History ASCUS with positive high risk HPV cervical High blood pressure Multiple sclerosis Surgical History Hx of wisdom tooth extraction Family History Family History Father Diabetes HTN (hypertension) Paternal Aunt Cancer of breast, female Mother No problems noted. Brother No problems noted. Sister No problems noted. Social History Social History Household Members: Family Housing: House Are you a primary home care liaison to a significant other at home: No Do you presently have visiting nurse or other home services: No Alcohol intake: never Patient Tobacco Use Status: Never used Tobacco Smoked in Last 30 Days: No Use of substances other than those prescribed or required for medical reasons: No Trauma History: SAB 03/04/22 Agree to transfusion: Yes Advance Directives: No Advance Directives Information Provided: No Patient : No service: No Current occupational status: unemployed Current occupational exposures/hazards: No Sexual orientation: Straight/Heterosexual Gender identity: Female Vision needs: Yes Physical Exam ED Vital Signs: Vital Signs - 24 hr 04/19/23 07:34 04/19/23 07:39 04/19/23 10:40 Temperature 98.5 F Pulse Rate 97 54 74 Respiratory Rate 18 20 Blood Pressure 127/77 117/69 Pulse Oximetry 98 98 96 Oxygen Delivery Method Room Air Room Air Room Air BMI result Body Mass Index 49.1 GEN: Well developed, + acute distress, alert, oriented HEENT: Normocephalic, atraumatic, normal external ears, nose appears normal, no oropharyngeal edema or exudates Eyes: Normal to appearance Neck: Supple, no lymphadenopathy Respiratory: Talks in complete sentences, no respiratory distress, clear to auscultation bilaterally Cardiovascular: Regular rate and rhythm, no murmurs rubs or gallops Abdomen: Soft, nontender, nondistended, no guarding, no rebound Back: No CVA tenderness Extremities: No clubbing cyanosis or edema Neurologic: No focal neurologic deficits, cranial nerves 2-12 intact, strength is 5/5 bilaterally Skin: No rash Course Course Course Narrative: The workup is complete. Imaging studies demonstrate no evidence of intracranial bleeding or mass effect. Patient has pain 4/10. Will provide her with Toradol. Patient will be discharged with prescription for Reglan. She will follow-up with her neurologist for further management of her chronic headache condition Medications Administered Discontinued Medications Generic Name Dose Route Start Last Admin Trade Name Reji PRN Reason Stop Dose Admin Acetaminophen 975 mg 04/19/23 08:34 04/19/23 09:07 Acetaminophen 325 Mg Tablet PO 04/19/23 08:35 975 mg ONCE ONE Administration Dexamethasone Sodium Phosphate 10 mg 04/19/23 08:34 04/19/23 09:08 Dexamethasone Sod Phosphate 10 Mg/Ml Vial IVPUSH 04/19/23 08:35 10 mg ONCE ONE Administration Dihydroergotamine Mesylate 1 mg 04/19/23 08:45 04/19/23 09:07 Dihydroergotamine Mesylate 1 Mg/Ml Ampul IVPUSH 04/19/23 09:46 1 mg Q1H NAVJOT Administration Sodium Chloride 1,000 mls @ 999 mls/hr 04/19/23 08:45 04/19/23 10:29 Ns IV 04/19/23 09:45 Infused .Q1H1M NAVJOT Infusion Magnesium Sulfate 2 gm in 50 mls @ 25 mls/hr 04/19/23 08:34 04/19/23 10:29 Magnesium Sulfate/H2o IV 04/19/23 10:33 Infused ONCE ONE Infusion Metoclopramide HCl 10 mg 04/19/23 08:40 04/19/23 09:07 Metoclopramide Hcl 10 Mg/2 Ml Vial IVPUSH 04/19/23 08:41 10 mg ONCE ONE Administration Medical Decision Making Medical Decision Making MDM Narrative: 28-year-old female presents with severe frontal headache. Differential diagnosis includes migraine headache, tension headache, sinus headache, subar achnoid hemorrhage, subdural hematoma, epidural hematoma, meningitis. The patient's symptoms are somewhat different than usual. She has no meningeal signs, doubt meningitis or subarachnoid hemorrhage. There is no trauma so is less likely to be subdural epidural hematoma. However, patient does report this headache being worse than her typical headaches. I am concerned about possible mass effect and bleeding. Will obtain a CT scan of the head to rule this out. In the meantime, provide the patient with analgesia including Tylenol, meclizine for dizziness, Reglan, IV fluids, magnesium, DHE 45. Will consider Toradol once the CT scan is been officially read. Our goal for the patient's pain would be a 4/10 has a reasonable approach since her pain was a 10/10. Will have frequent re-evaluations. Depending on her ultimate diagnosis, patient may warrant hospitalization. Differential Diagnosis Differential Diagnoses: The differential diagnosis associated with the presentation includes (See above) Admission/Observation Consideration of admission/observation: Escalation of care including admission/observation considered Lab Data MDM Lab Attestation statement: I reviewed the patient's lab results. 04/19/23 09:17 04/19/23 09:17 Labs: Lab Results 04/19/23 04/19/23 Range/Units 09:17 09:17 WBC 7.0 (4.8-10.8) X10*3/uL RBC 5.12 (4.20-5.50) X10*6/uL Hgb 14.7 (12.0-16.0) g/dl Hct 44.1 (37.0-47.0) % MCV 86.1 (80.0-98.0) fL MCH 28.7 (27.0-33.0) pg MCHC 33.3 (31.0-35.0) g/dl RDW 12.8 (11.0-16.0) % Plt Count 444 H (160-400) X10*3/uL MPV 8.4 L (9.4-12.3) fL Immature Gran % (Auto) 0.3 (0.0-0.4) % Neut % (Auto) 71.0 (45-73) % Lymph % (Auto) 18.2 L (20-40) % [place] % (Auto) 7.5 (2-11) % Eos % (Auto) 2.4 (0-4) % Baso % (Auto) 0.6 (0-2) % Lymph # (Auto) 1.3 (1.2-4.9) X10*3/uL [place] # (Auto) 0.5 (0.1-1.2) X10*3/uL Eos # (Auto) 0.2 (0.0-0.4) X10*3/uL Baso # (Auto) 0.0 (0.0-0.2) X10*3/uL Abs Immat Gran (auto) 0.02 (0.00-0.03) X10*3/uL Absolute Neuts (auto) 5.0 (2.0-8.3) x10*3/uL Absolute Nucleated RBC 0.000 (0.0-0.012) X10*3/uL Nucleated RBC % (auto) 0.0 (0.0-0.2) /100WBC Sodium 139 (135-145) mmol/L Potassium 4.0 (3.3-5.1) mmol/L Chloride 111 H (96-108) mmol/L Carbon Dioxide 24 (22-29) mmol/L Anion Gap 8 L (12-20) BUN 7 L (9-16) mg/dL Creatinine 0.63 (0.5-1.4) mg/dL Estim Creat Clear Calc 166.8 Estimated GFR > 60 Random Glucose 87 (60-115) mg/dL Calcium 9.2 (8.4-10.2) mg/dL Independent Interpretation I performed an independent interpretation of an: CT Scan (Head: No acute intracranial bleeding or traumatic event) Independent Historian Clinical information obtained from an independent historian. History obtained from or confirmed by: Friend Tests considered The following testing was considered but not selected: MRI brain not indicated at this time Prescription Management I considered prescription management with: Pain Medication Critical Care Time Critical Care Time Total Critical Care Time: 40 Attestation: Approximately 40 minutes of critical care time was spent on this patient including initial evaluation, re-evaluation, documentation, interpretation and medical data, potentially life-threatening condition, outside of procedures. Discharge Plan Discharge Clinical Impression: Headache, migraine Patient Disposition: Home, Self-Care Instructions: Migraine Headache (ED) Prescriptions: New metoclopramide HCl [Reglan] 10 mg tablet 10 mg PO Q6H PRN (Reason: nausea and/or headache) Qty: 10 0RF No Action cyanocobalamin (vitamin B-12) 500 mcg tablet 500 mcg PO DAILY 90 Days Qty: 90 0RF amlodipine 2.5 mg tablet 2.5 mg PO DAILY cholecalciferol (vitamin D3) 50 mcg (2,000 unit) capsule 50 mcg PO DAILY metformin 500 mg tablet 1,000 mg PO BID Referrals: Rose Mary Brennan MD [Primary Care Provider] - Stand Alone Forms: Work/School Release
[2023-04-19 10:40] VITALS: BP 117/69; PULSE 74; RESP 20; O2SAT 96
[2023-04-19] MEDS: Ketorolac Tromethamine 15 MG/ML VIAL IVPUSH (11:19)
== END 2023-04-19 11:36 | disposition home or self-care (01) ==
PROVIDERS: Emergency Provider Emergency Medicine; PCP Internal Medicine
DX: G43.809 Other migraine, not intractable, without status migrainosus (principal); R11.0 Nausea; I10 Essential (primary) hypertension; G35 Multiple sclerosis; Z79.899 Other long term (current) drug therapy
CPT/HCPCS: 36415; 70450; 80048; 85025; 96361; 96374; 96375; 99284; J1100; J1110; J1885; J2765; J3475

== ENCOUNTER 2023-04-26 08:46 | Outpatient (REF) | payer OTHER, SELFPAY | END 2023-04-26 08:47 | disposition home or self-care (01) | LOC: HO.MDS 08:46 | PROVIDERS: Visit Provider Psychiatry & Neurology Neurology | DX: G35 Multiple sclerosis (principal) | CPT/HCPCS: 96365; J2930 ==

== ENCOUNTER 2023-04-27 09:00 | Outpatient (REF) | payer OTHER, SELFPAY | END 2023-04-27 09:01 | disposition home or self-care (01) | LOC: HO.MDS 09:00 | PROVIDERS: Visit Provider Psychiatry & Neurology Neurology | DX: G35 Multiple sclerosis (principal) | CPT/HCPCS: 96365; 96366; J2930 ==

== ENCOUNTER 2023-04-28 | Outpatient (REF) | payer OTHER, SELFPAY | END 2023-04-28 00:01 | LOC: HO.MDS | PROVIDERS: Visit Provider Psychiatry & Neurology Neurology | DX: G35 Multiple sclerosis (principal) | CPT/HCPCS: 96365; J2930 ==

== ENCOUNTER 2023-05-11 07:45 | Outpatient (REF) | payer OTHER, SELFPAY ==
[2023-05-11 08:22] LABS: MANUAL DIFF FLAG NO
[2023-05-11 08:50] LABS: Basophils Percent Auto 0.5 % (0-2); Eosinophils Absolute Auto 0.1 X10*3/uL (0.0-0.4); Eosinophils Percent Auto 1.2 % (0-4); Hematocrit 45.8 % (37.0-47.0); Imm Gran Abs Auto 0.04 X10*3/uL (0.00-0.03); Imm Gran Pct Auto 0.5 % (0.0-0.4); Lymphocytes Absolute Auto 0.9 X10*3/uL (1.2-4.9); Lymphocytes Percent Auto 10.7 % (20-40); Mean Corpuscular HGB Conc 32.8 g/dl (31.0-35.0); Mean Corpuscular Hemoglobin 28.5 pg (27.0-33.0); Mean Corpuscular Volume 86.9 fL (80.0-98.0); Mean Platelet Volume 8.6 fL (9.4-12.3); Monocytes Absolute Auto 0.4 X10*3/uL (0.1-1.2); Monocytes Percent Auto 4.1 % (2-11); Neutrophils Absolute Auto 7.2 x10*3/uL (2.0-8.3); Platelet Count 466 X10*3/uL (160-400); Red Blood Count 5.27 X10*6/uL (4.20-5.50); Red Cell Distribution Width 13.2 % (11.0-16.0); White Blood Count 8.6 X10*3/uL (4.8-10.8)
== END 2023-05-11 07:46 | disposition home or self-care (01) ==
LOC: HO.LAB 07:45
PROVIDERS: PCP Internal Medicine; Visit Provider Internal Medicine Hematology & Oncology
DX: D75.839 Thrombocytosis, unspecified (principal)
CPT/HCPCS: 36415; 85025

== ENCOUNTER 2023-05-17 11:52 | Outpatient (REF) | payer OTHER, SELFPAY ==
[2023-05-17 15:31] LABS: CT PCR NOT DETECTED (Not Detect.); NG PCR NOT DETECTED (Not Detect.)
[2023-05-18 03:53] LABS: HBsAGNum1 0.36 S/CO (0.00-0.99); HIV AB/AG Nonreactive (Nonreactive); HIV Num 1 0.06 S/CO (0.00-0.99); Hepatitis B Surface Antigen Negative (Negative); ~HepC Num1 0.06 S/CO (0.00-0.79); ~Hepatitis C Antibody Nonreactive (Nonreactive)
[2023-05-18 04:08] LABS: Syphilis Screen Nonreactive (Nonreactive)
== END 2023-05-17 11:53 | disposition home or self-care (01) ==
LOC: HO.LAB 11:52
PROVIDERS: PCP Internal Medicine; Visit Provider Nurse Practitioner Women's Health
DX: Z11.4 Encounter for screening for human immunodeficiency virus [HIV] (principal); Z20.2 Contact with and (suspected) exposure to infections with a predominantly sexual mode of transmission
CPT/HCPCS: 0353U; 86780; 86803; 87340; 87389

== ENCOUNTER 2023-05-23 08:41 | Outpatient (AMB) | payer OTHER, SELFPAY ==
--- NOTE | 2023-05-23 08:43 | A.OFFVIS_ITS ---
Intake VS Expanded 05/23/23 08:53 Height 5 ft 2 in Weight 258 lb 6.4 oz BMI 47.3 BP 131/69 Blood Pressure Location Rt brachial Blood Pressure Position Sitting Pulse 71 Pulse Source Pulse Oximeter Temp 97 F Temperature Source Temporal Artery Scan Pulse Oximetry 71 L Oxygen Delivery Method Room Air Body Fat 125.6 Body Fat Percentage 48.6 Free Fat Mass 132.8 Muscle Mass 126.2 Visceral Mass 14.0 Water Mass 95.4 BMR 1,934 Intake Visit Reasons: (OV) F/U SWL + H.Pylori Warp Drawer Required: No Allergies IV contrast Adverse Reaction (Mild, Uncoded 06/04/22 09:09) Dizziness Medication List - Last Reconciled 05/23/23 by KAI Cline amlodipine 2.5 mg PO DAILY cholecalciferol (vitamin D3) 50 mcg PO DAILY metformin 1,000 mg PO BID HPI HPI Comments History of Present Illness Details The patient is a pleasant 28 year old female who returns to the clinic for pre-operative surgical weight loss management. They were last seen in the office on 03/24/23, recorded weight at that time was 262.8 pounds, with a BMI of 48.1. Today's weight is 258.4 pounds and BMI is 47.3. There has been a weight loss of 10 pounds since initiating the surgical weight loss program on 03/24/23 with a total body weight loss of 3.7 %. Pre op work up completed as follows: SWL classes:? 11/03 appts: needs f/u from 04/12/23 ? ? RD appts: needs f/u from 04/08/23 Labs: 04/01/23-B12: 302 H. pylori: 05/23/23 CXR: 04/01/23-nad EK04/01/23-incomplete RBBB ABD U/S: 04/14/23-fatty liver UGI: 04/05/23-normal The patient reports she was unsure if she wanted to continue in the SWL program per her appts with BH and RD. Today she states, her goal is to lose weight and undergo septated uterine surgery at [facility] – [place], [place]. She states she is very satisfied with her weight loss thus far, but she remains unsure if she wants to have surgery. She is not doing the RTD Premier protein shake, 2 per day at breakfast and lunch or breakfast and dinner, not doing bar. Not doing vegetables, eating things like rice and chicken or eggs and toast. Not measuring her food in any way. Current meal plan includes: 2 Pure Protein shakes ([employer], [employer], [employer]), (1/2 scoop in 8 oz low fat lactaid milk each) First shake at 730am-930am, Second shake at? 1030am-1230pm 1 protein bar (Zone Perfect bars at [employer], [employer], or [employer]) at 2pm-4pm. Dinner at 6pm (10 forks of protein and 10 forks of salad/vegetables). fresh fruit (apple, pear, kiwi or 1 cup melon) at 7pm-8pm. Drinking 80 oz of water Current exercise plan includes: [employer], elliptical/treadmill, 3 x per week, 400 calories per session. [facility] Medical History ASCUS with positive high risk HPV cervical High blood pressure Multiple sclerosis Surgical History Hx of wisdom tooth extraction Family History Father Diabetes HTN (hypertension) Paternal Aunt Cancer of breast, female Mother No problems noted. Brother No problems noted. Sister No problems noted. Social History Household Members: Family Both parents involved: Yes Caregiver staying overnight: No Housing: House Are you a primary animal caregiver to a significant other at home: No Do you presently have visiting nurse or other home services: No 75 years or older and lives alone: No Alcohol intake: never Patient Tobacco Use Status: Never used Tobacco Trauma History: SAB 03/04/22 Agree to transfusion: Yes service: No Current occupational status: unemployed Current occupational exposures/hazards: No Sexual orientation: Straight/Heterosexual Gender identity: Female Vision needs: Yes Female Reproductive History Menstrual Age of Menarche: 15 Review of Systems Const All systems reviewed & are unremarkable except as noted in HPI and below Physical Exam Vital Signs: BMI result Body Mass Index 47.3 Const General: healthy appearing and no acute distress Resp Effort & Inspection: normal respiratory effort Auscultation: clear to auscultation bilaterally Cardio Rate: regular rate Rhythm: regular rhythm GI Auscultation: normal bowel sounds Extrem General: Yes normal to inspection Assessment & Plan Assessment & Plan (1) Morbid obesity: Code(s): E66.01 - Morbid (severe) obesity due to excess calories Plan: Pt will w/d from the program at this time to pursue her goal of uterine surgery. She may return at any time. She will continue 2 shakes and a meal. She was en couraged to increase exercise to 5 days per week. Coding Level of Care Code Est Pt Level 3 (52860) Diagnoses Morbid obesity E66.01
[2023-05-23 08:53] VITALS: BP 131/69; PULSE 71; TEMP 36.1; O2SAT 71; BMI 47.3
== END 2023-05-23 09:27 | disposition home or self-care (01) ==
PROVIDERS: PCP Internal Medicine; Visit Provider Physician Assistant Surgical
DX: E66.01 Morbid (severe) obesity due to excess calories (principal)
CPT/HCPCS: 99213

== ENCOUNTER 2023-05-23 08:41 | Outpatient (REF) | payer OTHER, SELFPAY ==
[2023-05-25 14:46] LABS: H Pylori Breath Test Negative (Negative)
== END 2023-05-23 08:42 | disposition home or self-care (01) ==
LOC: HO.LNP 08:41
PROVIDERS: PCP Internal Medicine; Visit Provider Physician Assistant Surgical
DX: Z11.2 Encounter for screening for other bacterial diseases (principal); E66.01 Morbid (severe) obesity due to excess calories
CPT/HCPCS: 83013; 99211

== ENCOUNTER 2023-09-06 13:22 | Outpatient (REF) | payer OTHER, SELFPAY ==
[2023-09-06 15:03] LABS: Alanine Aminotransferase 61 U/L (0-31); Albumin Level 4.6 g/dL (3.5-5.0); Alkaline Phosphatase 63 U/L (39-117); Aspartate Amino Transferase 40 U/L (5-31); Bilirubin Direct 0.4 mg/dL (0.0-0.5); Total Protein 8.4 g/dL (6.5-8.0)
== END 2023-09-06 13:23 | disposition home or self-care (01) ==
LOC: HO.LAB 13:22
PROVIDERS: PCP Internal Medicine; Visit Provider Psychiatry & Neurology Neurology
DX: G35 Multiple sclerosis (principal)
CPT/HCPCS: 36415; 80076

== ENCOUNTER 2024-01-03 08:33 | Outpatient (REF) | payer OTHER, SELFPAY ==
[2024-01-03 08:52] LABS: MANUAL DIFF FLAG NO
[2024-01-03 09:57] LABS: Basophils Percent Auto 0.8 % (0-2); Eosinophils Absolute Auto 0.1 X10*3/uL (0.0-0.4); Eosinophils Percent Auto 3.4 % (0-4); Hematocrit 46.7 % (37.0-47.0); Hemoglobin 15.5 g/dl (12.0-16.0); Imm Gran Abs Auto 0.02 X10*3/uL (0.00-0.03); Imm Gran Pct Auto 0.5 % (0.0-0.4); Lymphocytes Absolute Auto 0.4 X10*3/uL (1.2-4.9); Lymphocytes Percent Auto 11.3 % (20-40); Mean Corpuscular HGB Conc 33.2 g/dl (31.0-35.0); Mean Corpuscular Hemoglobin 28.9 pg (27.0-33.0); Mean Platelet Volume 8.5 fL (9.4-12.3); Monocytes Absolute Auto 0.4 X10*3/uL (0.1-1.2); Monocytes Percent Auto 9.8 % (2-11); Neutrophils Absolute Auto 2.9 x10*3/uL (2.0-8.3); Neutrophils Percent Auto 74.2 % (45-73); Platelet Count 392 X10*3/uL (160-400); Red Blood Count 5.37 X10*6/uL (4.20-5.50); Red Cell Distribution Width 12.6 % (11.0-16.0); White Blood Count 3.9 X10*3/uL (4.8-10.8)
== END 2024-01-03 08:34 | disposition home or self-care (01) ==
LOC: HO.LAB 08:33
PROVIDERS: Visit Provider Internal Medicine Hematology & Oncology
DX: D75.839 Thrombocytosis, unspecified (principal)
CPT/HCPCS: 36415; 85025

== ENCOUNTER 2024-02-01 11:13 | Outpatient (REF) | payer OTHER, SELFPAY ==
[2024-02-01 11:40] LABS: MANUAL DIFF FLAG NO
[2024-02-01 12:05] LABS: Basophils Absolute Auto 0.1 X10*3/uL (0.0-0.2); Basophils Percent Auto 0.9 % (0-2); Eosinophils Absolute Auto 0.2 X10*3/uL (0.0-0.4); Eosinophils Percent Auto 3.5 % (0-4); Hematocrit 45.9 % (37.0-47.0); Hemoglobin 14.7 g/dl (12.0-16.0); Imm Gran Abs Auto 0.02 X10*3/uL (0.00-0.03); Imm Gran Pct Auto 0.3 % (0.0-0.4); Lymphocytes Absolute Auto 0.6 X10*3/uL (1.2-4.9); Lymphocytes Percent Auto 10.1 % (20-40); Mean Corpuscular Hemoglobin 28.4 pg (27.0-33.0); Mean Corpuscular Volume 88.8 fL (80.0-98.0); Mean Platelet Volume 8.5 fL (9.4-12.3); Monocytes Absolute Auto 0.5 X10*3/uL (0.1-1.2); Neutrophils Absolute Auto 4.4 x10*3/uL (2.0-8.3); Neutrophils Percent Auto 77.2 % (45-73); Platelet Count 396 X10*3/uL (160-400); Red Blood Count 5.17 X10*6/uL (4.20-5.50); Red Cell Distribution Width 12.6 % (11.0-16.0); White Blood Count 5.8 X10*3/uL (4.8-10.8)
== END 2024-02-01 11:14 | disposition home or self-care (01) ==
LOC: HO.LAB 11:13
PROVIDERS: Visit Provider Psychiatry & Neurology Neurology
DX: G35 Multiple sclerosis (principal)
CPT/HCPCS: 36415; 85025

== ENCOUNTER 2024-02-08 10:32 | Outpatient (REF) | payer OTHER, SELFPAY ==
[2024-02-08 11:44] LABS: MANUAL DIFF FLAG NO
[2024-02-08 12:29] LABS: Basophils Percent Auto 0.7 % (0-2); Eosinophils Absolute Auto 0.1 X10*3/uL (0.0-0.4); Eosinophils Percent Auto 2.4 % (0-4); Hematocrit 43.2 % (37.0-47.0); Hemoglobin 14.3 g/dl (12.0-16.0); Imm Gran Abs Auto 0.02 X10*3/uL (0.00-0.03); Imm Gran Pct Auto 0.4 % (0.0-0.4); Lymphocytes Absolute Auto 0.5 X10*3/uL (1.2-4.9); Lymphocytes Percent Auto 10.9 % (20-40); Mean Corpuscular HGB Conc 33.1 g/dl (31.0-35.0); Mean Corpuscular Hemoglobin 28.8 pg (27.0-33.0); Mean Corpuscular Volume 86.9 fL (80.0-98.0); Mean Platelet Volume 8.4 fL (9.4-12.3); Monocytes Absolute Auto 0.3 X10*3/uL (0.1-1.2); Monocytes Percent Auto 6.9 % (2-11); Neutrophils Absolute Auto 3.5 x10*3/uL (2.0-8.3); Neutrophils Percent Auto 78.7 % (45-73); Platelet Count 410 X10*3/uL (160-400); Red Blood Count 4.97 X10*6/uL (4.20-5.50); Red Cell Distribution Width 12.5 % (11.0-16.0); White Blood Count 4.5 X10*3/uL (4.8-10.8)
[2024-02-08 12:52] LABS: Estimated Average Glucose 100 mg/dL; Hemoglobin A1c % 5.1 % (<6.0)
[2024-02-08 12:54] LABS: Alanine Aminotransferase 46 U/L (0-31); Albumin Level 4.1 g/dL (3.5-5.0); Alkaline Phosphatase 49 U/L (39-117); Anion Gap 15 (12-20); Aspartate Amino Transferase 37 U/L (5-31); Bilirubin Total 0.7 mg/dL (0.0-1.0); Blood Urea Nitrogen 9 mg/dL (9-16); Calcium 9.1 mg/dL (8.4-10.2); Carbon Dioxide 22 mmol/L (22-29); Chloride 108 mmol/L (96-108); Cholesterol 131 mg/dL (<200); Estimated Glomerular Filt Rate > 60; Glucose Random 79 mg/dL (60-115); HDL Cholesterol 34 mg/dL (>40); LDL Cholesterol Calculated 88 mg/dL (<100); Potassium 3.8 mmol/L (3.3-5.1); Sodium 141 mmol/L (135-145); Total Protein 7.3 g/dL (6.5-8.0); Triglycerides 47 mg/dL (<150)
[2024-02-08 13:02] LABS: Glucose Fasting 77 mg/dL (60-99)
[2024-02-08 13:15] LABS: Insulin 17 uU/mL (2-29); Thyroid Stimulating Hormone 1.37 uIU/mL (0.32-4.0)
[2024-02-09 01:56] LABS: CT PCR NOT DETECTED (Not Detect.); NG PCR NOT DETECTED (Not Detect.)
[2024-02-09 08:21] LABS: HBsAGNum1 0.24 S/CO (0.00-0.99); HIV AB/AG Nonreactive (Nonreactive); HIV Num 1 0.05 S/CO (0.00-0.99); Hepatitis B Surface Antigen Negative (Negative); ~HepC Num1 0.09 S/CO (0.00-0.79); ~Hepatitis C Antibody Nonreactive (Nonreactive)
[2024-02-09 08:24] LABS: Syphilis Screen Nonreactive (Nonreactive)
[2024-02-09 09:04] LABS: Prolactin 7.5 ng/mL
[2024-02-09 11:59] LABS: Rubella IgG Antibody 3.15 Index
[2024-02-14 23:28] LABS: Estradiol Ultra Sensitive 25 pg/mL
[2024-02-16 19:03] LABS: Progesterone 0.2 ng/mL
== END 2024-02-08 10:33 | disposition home or self-care (01) ==
LOC: HO.LAB 10:32
PROVIDERS: Absent Provider Obstetrics & Gynecology; PCP Internal Medicine; Visit Provider Internal Medicine
DX: Z00.00 Encounter for general adult medical examination without abnormal findings (principal); Z11.4 Encounter for screening for human immunodeficiency virus [HIV]; Z31.41 Encounter for fertility testing; Z11.3 Encounter for screening for infections with a predominantly sexual mode of transmission; Z13.220 Encounter for screening for lipoid disorders
CPT/HCPCS: 0353U; 36415; 80053; 80061; 82306; 82670; 82947; 83036; 83525; 84144; 84146; 84443; 85025; 86762; 86780; 86787; 86803; 87340; 87389

== ENCOUNTER 2024-03-13 11:45 | Outpatient (REF) | payer OTHER, SELFPAY ==
[2024-03-13 12:13] LABS: MANUAL DIFF FLAG NO
[2024-03-13 12:22] LABS: Basophils Percent Auto 0.7 % (0-2); Eosinophils Absolute Auto 0.2 X10*3/uL (0.0-0.4); Eosinophils Percent Auto 3.3 % (0-4); Hematocrit 43.7 % (37.0-47.0); Hemoglobin 14.9 g/dl (12.0-16.0); Imm Gran Abs Auto 0.02 X10*3/uL (0.00-0.03); Imm Gran Pct Auto 0.4 % (0.0-0.4); Lymphocytes Absolute Auto 0.8 X10*3/uL (1.2-4.9); Lymphocytes Percent Auto 13.7 % (20-40); Mean Corpuscular HGB Conc 34.1 g/dl (31.0-35.0); Mean Corpuscular Hemoglobin 29.7 pg (27.0-33.0); Mean Corpuscular Volume 87.1 fL (80.0-98.0); Mean Platelet Volume 8.1 fL (9.4-12.3); Monocytes Absolute Auto 0.4 X10*3/uL (0.1-1.2); Neutrophils Absolute Auto 4.3 x10*3/uL (2.0-8.3); Neutrophils Percent Auto 74.9 % (45-73); Platelet Count 451 X10*3/uL (160-400); Red Blood Count 5.02 X10*6/uL (4.20-5.50); Red Cell Distribution Width 12.7 % (11.0-16.0); White Blood Count 5.7 X10*3/uL (4.8-10.8)
== END 2024-03-13 11:46 | disposition home or self-care (01) ==
LOC: HO.LAB 11:45
PROVIDERS: PCP Internal Medicine; Visit Provider Psychiatry & Neurology Neurology
DX: G35 Multiple sclerosis (principal)
CPT/HCPCS: 36415; 85025

== ENCOUNTER 2024-07-12 11:44 | Outpatient (REF) | payer OTHER, SELFPAY ==
--- NOTE | ~2024-07-12 | MR_ITS ---
EXAMINATION: MR BRAIN WITHOUT AND WITH CONTRAST CLINICAL INFORMATION: Multiple sclerosis flair. COMPARISON: Brain MRI from 11/02/2022. TECHNIQUE: MRI of the brain was obtained using routine sequences using MS protocol without and following the administration of 10 mL of Gadavist intravenous contrast. This included a sagittal 3D high-resolution T2 CUBE FLAIR sequence. FINDINGS: There are multiple T2/FLAIR hyperintense lesions consistent with an underlying diagnosis of demyelination. This includes lesions within the subcortical, deep white matter, periventricular, callosal, brainstem, and cerebellar distributions. New Lesions: None. Enhancing Lesions: None. Restricted Diffusion: None. T1 Black Holes: To-3. Volume Loss: None. Additional Findings: No evidence of edema or expansion of the optic nerves. No focal restricted diffusion is seen to suggest acute or subacute cerebral ischemia. No intracranial mass, intra-axial blood products, midline shift, or extra-axial collection is demonstrated. The ventricles and sulcal spaces appear normal. Normal arterial and venous vascular flow voids are present. No signal abnormalities within the superior sagittal or transverse sinuses. Mild mucosal thickening of the paranasal sinuses. No signal abnormalities within the mastoids. MR/MR head/brain wo/w con IMPRESSION: 1. Stable supratentorial and infratentorial white matter changes consistent with an underlying diagnosis of demyelination in the appropriate clinical setting. No evidence of disease progression. 2. No acute intracranial abnormalities. No abnormal intracranial enhancement. Electronically signed by: Karan Singh DO 07/23/2024 03:55 PM EDT
[2024-07-12 12:43] LABS: Hematocrit 46.7 % (37.0-47.0); Hemoglobin 15.3 g/dl (12.0-16.0); Mean Corpuscular HGB Conc 32.8 g/dl (31.0-35.0); Mean Corpuscular Hemoglobin 28.7 pg (27.0-33.0); Mean Corpuscular Volume 87.5 fL (80.0-98.0); Mean Platelet Volume 8.3 fL (9.4-12.3); Platelet Count 430 X10*3/uL (160-400); Red Blood Count 5.34 X10*6/uL (4.20-5.50); Red Cell Distribution Width 12.5 % (11.0-16.0); White Blood Count 6.2 X10*3/uL (4.8-10.8)
[2024-07-12 13:09] LABS: Alanine Aminotransferase 50 U/L (0-31); Albumin Level 4.1 g/dL (3.5-5.0); Alkaline Phosphatase 58 U/L (39-117); Anion Gap 11 (12-20); Aspartate Amino Transferase 38 U/L (5-31); Bilirubin Direct 0.3 mg/dL (0.0-0.5); Bilirubin Total 0.7 mg/dL (0.0-1.0); Blood Urea Nitrogen 8 mg/dL (9-16); Calcium 9.7 mg/dL (8.4-10.2); Carbon Dioxide 26 mmol/L (22-29); Chloride 111 mmol/L (96-108); Estimated Glomerular Filt Rate > 60; Glucose Random 87 mg/dL (60-115); Sodium 144 mmol/L (135-145); Total Protein 7.7 g/dL (6.5-8.0)
[2024-07-12] MEDS: gadobutroL 10 ML VIAL IVPUSH (16:44)
[2024-07-17 22:38] LABS: JCV Antibody POSITIVE; JCV Index Value 2.13
== END 2024-07-12 11:45 | disposition home or self-care (01) ==
LOC: HO.MRI 11:44
PROVIDERS: PCP Internal Medicine; Visit Provider Psychiatry & Neurology Neurology
DX: G35 Multiple sclerosis (principal)
CPT/HCPCS: 36415; 70553; 80048; 80076; 85027; 86711; A9585

== ENCOUNTER 2025-02-25 11:13 | Outpatient (REF) | payer OTHER, SELFPAY ==
[2025-02-25 11:29] LABS: MANUAL DIFF FLAG NO
[2025-02-25 12:01] LABS: Basophils Percent Auto 0.8 % (0-2); Eosinophils Absolute Auto 0.2 X10*3/uL (0.0-0.4); Eosinophils Percent Auto 2.9 % (0-4); Hematocrit 45.6 % (37.0-47.0); Hemoglobin 15.5 g/dl (12.0-16.0); Imm Gran Abs Auto 0.03 X10*3/uL (0.00-0.03); Imm Gran Pct Auto 0.6 % (0.0-0.4); Lymphocytes Absolute Auto 0.5 X10*3/uL (1.2-4.9); Lymphocytes Percent Auto 10.2 % (20-40); Mean Corpuscular Hemoglobin 28.8 pg (27.0-33.0); Mean Corpuscular Volume 84.8 fL (80.0-98.0); Mean Platelet Volume 8.2 fL (9.4-12.3); Monocytes Absolute Auto 0.3 X10*3/uL (0.1-1.2); Monocytes Percent Auto 5.8 % (2-11); Neutrophils Absolute Auto 4.1 x10*3/uL (2.0-8.3); Neutrophils Percent Auto 79.7 % (45-73); Platelet Count 388 X10*3/uL (160-400); Red Blood Count 5.38 X10*6/uL (4.20-5.50); Red Cell Distribution Width 12.6 % (11.0-16.0); White Blood Count 5.2 X10*3/uL (4.8-10.8)
--- OUTSIDE RECORDS SUMMARY | 2025-02-25 12:33 | XMS_ITS | Clinical Summary ---
Author Organization [facility] Address [address] [place] [address] Care Team Providers Care Boiler House Mechanic Name Role Phone Rose Mary Brennan MD Primary Care Provider [phone] Allergies No known active allergies Medications Medication Sig Dispensed Refills Start Date End Date Status amLODIPine (NORVASC) tablet 2.5 mg Take 1 tablet (2.5 mg total) by mouth daily. 0 Active Cholecalciferol (Vitamin D) 50 MCG (2000 UT) tablet Take 2,000 Units by mouth daily. 0 Active DIMETHYL FUMARATE PO Take 240 mg by mouth daily. 0 Active metFORMIN (GLUCOPHAGE) tablet 500 mg Take 1 tablet (500 mg total) by mouth every morning with breakfast. 0 Active Diroximel Fumarate, Starter, (Vumerity, Starter,) 231 MG CPDR Take by mouth. 0 Active Active Problems Problem Noted Date Diagnosed Date Thrombocytosis 03/30/2022 Family History Medical History Relation Name Comments Diabetes Father Hypertension Maternal Grandfather Cancer Paternal Aunt Relation Name Status Comments Father Maternal Grandfather Paternal Aunt Social History Tobacco Use Types Packs/Day Years Used Date Smoking Tobacco: Never Smokeless Tobacco: Never Alcohol Use Standard Drinks/Week Comments Never 0 (1 standard drink = 0.6 oz pur e alcohol) Sex and Gender Information Value Date Recorded Sex Assigned at Not on file Gender Identity Not on file Sexual Orientation Not on file Job Start Date Occupation Industry Not on file Not on file Not on file Last Filed Vital Signs Vital Sign Reading Time Taken Comments Blood Pressure 134/64 01/10/2024 2:37 PM EDT Pulse 63 01/10/2024 2:37 PM EDT Temperature 36.6 ??C (97.8 ??F) 01/10/2024 2:37 PM ED T Respiratory Rate - - Oxygen Saturation 100% 01/10/2024 2:37 PM EDT Inhaled Oxygen Concentration - - Weight 115.1 kg (253 lb 12.8 oz) 01/10/2024 2:37 PM EDT Height 157.5 cm (5' 2 ) 01/10/2024 2:37 PM EDT Body Mass Index 46.42 01/10/2024 2:37 PM EDT Plan of Treatment Health Maintenance Due Date Last Done Comments Hepatitis C Screening 1996 COVID-19 Vaccine (#1) 1996 Depression Screening 2008 BMI Counseling 2014 Preventative Health Evaluation 2014 Cervical Cancer Screening (Pap Smear) 2017 Influenza Vaccine (#1) 2024 , 07/27/2016, 06/12/2015, Additional history exists DTap / Tdap / Td (8 - Td or Tdap) 08/13/2030 08/13/2020, 09/18/2007, 04/15/2000, Additional history exists Hepatitis B Vaccines Completed 02/11/2021, 09/10/2020, 08/13/2020, Additional history exists Pneumococcal Vaccine Aged Out No long er eligible based on patient's age to complete this topic RSV Ped < 20 months Aged Out No longe r eligible based on patient's age to complete this topic Care Teams Boiler House Mechanic Relationship Specialty Start Date End Date Rose Mary Brennan MD PCP - General Internal Medicine 01/30/21
[2025-02-25 13:00] LABS: Alanine Aminotransferase 80 U/L (0-31); Albumin Level 4.4 g/dL (3.5-5.0); Alkaline Phosphatase 58 U/L (39-117); Aspartate Amino Transferase 49 U/L (5-31); Bilirubin Direct 0.3 mg/dL (0.0-0.5); Bilirubin Total 0.8 mg/dL (0.0-1.0); Total Protein 7.8 g/dL (6.5-8.0)
== END 2025-02-25 11:14 | disposition home or self-care (01) ==
LOC: HO.LAB 11:13
PROVIDERS: PCP Internal Medicine; Visit Provider Psychiatry & Neurology Neurology
DX: G35 Multiple sclerosis (principal)
CPT/HCPCS: 36415; 80076; 85025

== ENCOUNTER 2025-04-08 08:14 | Outpatient (AMB) | payer OTHER, SELFPAY ==
--- NOTE | 2025-04-08 08:18 | MHC.OFFVIS ---
Intake Visit Reasons: 3 month f/u Allergies IV contrast Adverse Reaction (Mild, Uncoded 06/04/22 09:09) Dizziness Medication List - Last Reconciled 04/08/25 by Nicholas Shepherd MD amlodipine 2.5 mg PO DAILY cholecalciferol (vitamin D3) 50 mcg PO DAILY diroximel fumarate (Vumerity) mg PO metformin 1,000 mg PO BID oxybutynin chloride ER 5 mg PO DAILY sumatriptan succinate take 1 tab at onset of headache; if no relief may repeat 1 tab after at least 2 hrs; max = 4 tabs/24 hr PO HPI Comments Details: 30 yo RH obese woman with migraine and MS. She started having numbness, pain and weakness of legs in December of 2020. Around same time, she also had Covid infection and she thought it was due to Covid. Her work up revealed abnormalities in brain, cervical and thoracic cord suggestive of demylinating disease, right eye ANURAG was delayed, and CSF reavealed high IgG index and >5 OCBs not noted in serum. Aquaporin 4 IgG titer was negative. She was put on Tecfidera, which later was stopped due to , and restarted after she had two miscarriages. In Apr, she was put on Vumerity, which her insurance later stopped coverage for it, and she stopped taking it in January of 2024. She restarted taking Vumerity in Jun 2024. She was doing good. Sleep was ok. Mood was ok. Walking was ok. Energy level was fine. Bladder control was ok. No significant pain. [facility] Medical History (Updated 04/08/25 @ 08:37 by Nicholas Shepherd MD) Anxiety Mood disorder Spastic bladder Paraparesis Myelopathy ASCUS with positive high risk HPV cervical Multiple sclerosis High blood pressure Surgical History Hx of wisdom tooth extraction Family History Father Diabetes HTN (hypertension) Paternal Aunt Cancer of breast, female Mother No problems noted. Brother No problems noted. Sister No problems noted. Social History Household Members: Family Both parents involved: Yes Caregiver staying overnight: No Housing: House Are you a primary anesthesiologist and critical care to a significant other at home: No Do you presently have visiting nurse or other home services: No 75 years or older and lives alone: No Alcohol intake: never Patient Tobacco Use Status: Never used Tobacco Trauma History: SAB 03/04/22 Agree to transfusion: Yes service: No Current occupational status: unemployed Current occupational exposures/hazards: No Sexual orientation: Straight/Heterosexual Gender identity: Female Vision needs: Yes Female Reproductive History Menstrual Age of Menarche: 15 Review of Systems Const Details: Constitutional:?No fever, chills, fatigue, weight loss, or night sweats. HEENT:?No headache, vision changes, hearing loss, nasal congestion, sore throat. Neurological:?No dizziness, syncope, seizures, numbness, tingling, weakness, tremors, memory loss. Psychiatric:?No anxiety, depression, mood swings, sleep disturbance, or hallucinations. Endocrine:?No heat/cold intolerance, polydipsia, polyuria, or hair/skin changes. Hematologic/Lymphatic:?No easy bruising, bleeding, or lymphadenopathy. Integumentary (Skin):?No rash, lesions, itching, or color changes. ? Physical Exam Neuro Other: Mental Status: Alert and oriented to person, place, and time. Normal attention. Normal spontaneous speech, fluency, and comprehension. No obvious issues with mood and memory. Affect is appropriate. Cranial Nerves: CN II: Visual landaverde full to confrontation, visual acuity intact. CN III, IV, : Pupils equal, round, reactive to light and accommodation. Extraocular movements are normal. CN V: Facial sensation is normal. CN VII: Facial movements symmetrical. CN VIII: Hearing intact to bedside conversation is normal. CN IX, X: Palate elevates symmetrically. CN XI: Shoulder shrug and head turn symmetrical. CN XII: Tongue midline without atrophy or fasciculations. Motor: Bulk and tone normal in all extremities. No significant muscle weakness in arms and legs. No drift. Reflexes: Deep tendon reflexes 2+ and symmetric. Plantar response down-going bilaterally. Coordination: Hqiimj-du-rzbl and ngkq-pp-oeht testing normal. No dysmetria. Gait and Station: No obvious gait abnormality. No ataxia or instability. Sensory: Intact to light touch, pinprick, and vibration. Romberg is negative. Extrapyramidal: Full facial expressions and blinking. No rigidity. Movements are appropriate with no tremor or abnormality. Speech: Normal; no dysarthria or tremor. Assessment & Plan Assessment & Plan (1) Multiple sclerosis: Code(s): G35 - Multiple sclerosis Category: Medical (2) Migraine without aura: Code(s): G43.009 - Migraine without aura, not intractable, without status migrainosus Category: Medical Qualifiers: Status migrainosus presence: without status migrainosus Intractability: not intractable Qualified Code(s): G43.009 - Migraine without aura, not intractable, without status migrainosus (3) Spastic bladder: Code(s): N32.89 - Other specified disorders of bladder Category: Medical Plan Impression: a. Multiple Sclerosis, stable with Vumerity b: Migraine, stable c: Spastic bladder, better d: Lymphopenia, probably due to Vumerity, asymptmatic e: Abnormal LFTs, probably due to Vumerity, asymptomatic Rec: Continue Vumerity Repeat LFTs PRN Sumatriptan PRN Oxybutynin Coding Level of Care Code Est Pt Level 5 (14614) Diagnoses Multiple sclerosis G35 Migraine without aura and without status migrainosus, not intractable G43.009 Status migrainosus presence: without status migrainosus Intractability: not intractable Spastic bladder N32.89
--- OUTSIDE RECORDS SUMMARY | 2025-04-08 08:18 | XMS_ITS | Clinical Summary ---
Author Organization [facility] Address [address] [place] [address] Care Team Providers Care Receiver Name Role Phone Rose Mary Brennan MD Primary Care Provider [phone] Allergies No known active allergies Medications Medication [...] 63 01/10/2024 2:37 PM EDT Temperature 36.6 C (97.8 F) 01/10/2024 2:37 PM EDT Respiratory Rate - - Oxygen Saturation 100% [...] Screening (Pap Smear) 2017 Influenza Vaccine (#1) 2025 , 07/27/2016, 06/12/2015, Additional history exists DTap [...] age to complete this topic Care Teams Receiver Relationship Specialty Start Date End Date Rose Mary rBennan MD PCP - General Internal Medicine 01/30/21
== END 2025-04-08 08:43 | disposition home or self-care (01) ==
LOC: HO.HSM 08:14
PROVIDERS: PCP Internal Medicine; Visit Provider Psychiatry & Neurology Neurology
DX: G35 Multiple sclerosis (principal); G43.009 Migraine without aura, not intractable, without status migrainosus; N32.89 Other specified disorders of bladder
CPT/HCPCS: 99214

== ENCOUNTER 2025-05-14 15:02 | Outpatient (REF) | payer OTHER, SELFPAY ==
--- OUTSIDE RECORDS SUMMARY | 2025-05-14 16:23 | XMS_ITS | Clinical Summary ---
Author Organization [facility] Address [address] [place] [address] Care Team Providers Care Business Relations Manager Name Role Phone Rose Mary Brennan MD Primary Care Provider [phone] Allergies No known active allergies Medications Medication [...] age to complete this topic Care Teams Business Relations Manager Relationship Specialty Start Date End Date Rose Mary Brennan MD PCP - General Internal Medicine 01/30/21
[2025-05-14 16:30] LABS: Alanine Aminotransferase 100 U/L (0-31); Albumin Level 4.2 g/dL (3.5-5.0); Alkaline Phosphatase 62 U/L (39-117); Aspartate Amino Transferase 68 U/L (5-31); Total Protein 7.4 g/dL (6.5-8.0)
== END 2025-05-14 15:03 | disposition home or self-care (01) ==
LOC: HO.LAB 15:02
PROVIDERS: PCP Internal Medicine; Visit Provider Psychiatry & Neurology Neurology
DX: G35 Multiple sclerosis (principal)
CPT/HCPCS: 36415; 80076

== ENCOUNTER 2025-05-30 08:35 | Outpatient (AMB) | payer OTHER, SELFPAY ==
--- NOTE | 2025-05-30 08:52 | A.OFFVIS_ITS ---
Intake Visit Reasons: Discuss alternative treatment Allergies IV contrast Adverse Reaction (Mild, Uncoded 06/04/22 09:09) Dizziness HPI Comments Details: 30 yo RH obese woman with migraine and MS. She started having numbness, pain and weakness of legs in December of 2020. Around same time, she also had Covid infection and she thought it was due to Covid. Her work up revealed abnormalities in brain, cervical and thoracic cord suggestive of demylinating disease, right eye ANURAG was delayed, and CSF reavealed high IgG index and >5 OCBs not noted in serum. Aquaporin 4 IgG titer was negative. She was put on Tecfidera, which later was stopped due to , and restarted after she had two miscarriages. In Apr, she was put on Vumerity, which her insurance later stopped coverage for it, and she stopped taking it in January of 2024. She restarted taking Vumerity in Jun 2024. It was stopped due to high LFTs in end of Apr 2025. She is presenting with confirmation and management of in the context of multiple sclerosis. She learned of her two days ago and is currently 4 weeks and 4 days . She has ceased the medication Lumerity due to elevated liver enzymes, halting its use about a week to two weeks ago. Subsequently, discussions on potential teratogenic risk with Lumerity concluded the risk as low. The patient reports issues with sleep disturbances, which have affected her restfulness. Previously initiated treatment with Lumerity was halted due to liver function concerns. She anticipates further evaluation of the elevated liver enzymes related to this medication. Currently, her regimen includes Metformin and Vitamin D supplementation. Her first visit is scheduled for June 04 and she is advised not to resume immunomodulatory therapy until after . Medical management for multiple sclerosis during was reviewed, noting possible steroid use if disease flares become evident. [facility] Medical History (Updated 05/30/25 @ 08:55 by Nicholas Shepherd MD) Anxiety Mood disorder Spastic bladder Paraparesis Myelopathy ASCUS with positive high risk HPV cervical Multiple sclerosis High blood pressure Surgical History Hx of wisdom tooth extraction Family History Father Diabetes HTN (hypertension) Paternal Aunt Cancer of breast, female Mother No problems noted. Brother No problems noted. Sister No problems noted. Social History Household Members: Family Both parents involved: Yes Caregiver staying overnight: No Housing: House Are you a primary health careers instructor to a significant other at home: No Do you presently have visiting nurse or other home services: No 75 years or older and lives alone: No Alcohol intake: never Patient Tobacco Use Status: Never used Tobacco Trauma History: SAB 03/04/22 Agree to transfusion: Yes service: No Current occupational status: unemployed Current occupational exposures/hazards: No Sexual orientation: Straight/Heterosexual Gender identity: Female Vision needs: Yes Female Reproductive History Menstrual Age of Menarche: 15 Review of Systems Const Details: - Neurological: Reports frequent awakenings at night, sleep disturbances. - Gastrointestinal: Denies nausea or vomiting. - Genitourinary: Denies urinary urgency or frequency currently; known spastic bladder stable. - General: Reports positive test. Physical Exam Neuro Other: Mental Status: Alert and oriented to person, place, and time. Normal attention. Normal spo ntaneous speech, fluency, and comprehension. No obvious issues with mood and memory. Affect is appropriate. Cranial Nerves: CN II: Visual landaverde full to confrontation, visual acuity intact. CN III, IV, : Pupils equal, round, reactive to light and accommodation. Extraocular movements are normal. CN V: Facial sensation is normal. CN VII: Facial movements symmetrical. CN VIII: Hearing intact to bedside conversation is normal. CN IX, X: Palate elevates symmetrically. CN XI: Shoulder shrug and head turn symmetrical. CN XII: Tongue midline without atrophy or fasciculations. Motor: Bulk and tone normal in all extremities. No significant muscle weakness in arms and legs. No drift. Reflexes: Deep tendon reflexes 2+ and symmetric. Plantar response down-going bilaterally. Coordination: Ieezjr-wt-tzni and nctw-dr-zbbd testing normal. No dysmetria. Gait and Station: No obvious gait abnormality. No ataxia or instability. Extrapyramidal: Full facial expressions and blinking. No rigidity. Movements are appropriate with no tremor or abnormality. Speech: Normal; no dysarthria or tremor. Assessment & Plan Assessment & Plan (1) Multiple sclerosis: Comment: Meds tried for headaches: naproxen, sumatriptan Meds tried for MS: Tecfidera, Vumerity Meds tried for muscle spasms: cyclobenzaprine, baclofen, tizanidine JCV titer at [facility]: 06/2024: 2.13 MRI brain WWO at [facility] in Jun 2024: No new lesion or change, lesion load low CT brain WO at [facility] in March 2023: [place] MRI brain WO at [facility] in Oct 2022: no change. LP at [facility] in March 2021: OP 16.5cm, WBCs 4, RBCs 0, Glu 60, Pro 25.3, IgG ind: high (1.26), OCBs: >5 bands in CSF not in serum Labs at [facility] in February 2021: NEY ok, Lyme ok, JCV titre: 0.21, CBC ok, ESR 16, CMP ok, LFTs ok, Chol profile ok, Vit D 24 EP screen at office in March 2021: R ANURAG delayed MRI T spine WWO at [place] in January 2021: T10 area faint T2/STIR lesion with mild enhancement MRI C spine WWO at [facility] in February 2021: multiple cord lesions, C3/4, lower cervical/T1, w/o enhancement, suggestive of demyelinating disease MRI brain WWO at [facility] in February 2021: multiple b/l cortical non enhancing lesions, probably demyelinating disease, ?left parotid gland lesion Code(s): G35 - Multiple sclerosis Category: Medical (2) Migraine without aura: Code(s): G43.009 - Migraine without aura, not intractable, without status migrainosus Category: Medical Qualifiers: Status migrainosus presence: without status migrainosus Intractability: not intractable Qualified Code(s): G43.009 - Migraine without aura, not intractable, without status migrainosus (3) Spastic bladder: Code(s): N32.89 - Other specified disorders of bladder Category: Medical Plan Impression: 1. Multiple sclerosis 2. Migraine without aura 3. Spastic bladder, which is stable at this time 4. 5. High liver enzymes that could be related to MS medicine Recommendations: 1. Vumerity was on hold because of high LFTs but now she has found that she was . Plan is to not start an immunomodulating agent until was over. 2. Sumatriptan 50 mg can be taken as needed for headaches but preferably not during 1st trimester 3. Follow-through with medical team especially for high liver enzymes. The test would be repeated in few weeks time. If it was related to MS medicine, I would expect normalization of LFTs now that medicine has been stopped. Coding Level of Care Code Est Pt Level 5 (82223) Diagnoses Multiple sclerosis G35 Migraine without aura and without status migrainosus, not intractable G43.009 Status migrainosus presence: without status migrainosus Intractability: not intractable Spastic bladder N32.89
--- OUTSIDE RECORDS SUMMARY | 2025-05-30 09:08 | XMS_ITS | Clinical Summary ---
Author Organization [facility] Address [address] [place] [address] Care Team Providers Care Color Coater Name Role Phone Rose Mary Brennan MD Primary Care Provider [phone] Allergies No known active allergies Medications Medication [...] age to complete this topic Care Teams Color Coater Relationship Specialty Start Date End Date Rose Mary Brennan MD PCP - General Internal Medicine 01/30/21
== END 2025-05-30 09:04 | disposition home or self-care (01) ==
LOC: HO.HSM 08:36
PROVIDERS: PCP Internal Medicine; Visit Provider Psychiatry & Neurology Neurology
DX: G35 Multiple sclerosis (principal); G43.009 Migraine without aura, not intractable, without status migrainosus; N32.89 Other specified disorders of bladder
CPT/HCPCS: 99214

== ENCOUNTER 2025-06-03 16:27 | Outpatient (REF) | payer OTHER, SELFPAY ==
--- OUTSIDE RECORDS SUMMARY | 2025-06-03 18:49 | XMS_ITS | Clinical Summary ---
Author Organization [facility] Address [address] [place] [address] Care Team Providers Care Rn Case Management Name Role Phone Rose Mary Brennan MD Primary Care Provider [phone] Allergies No known active allergies Medications Medication [...] age to complete this topic Care Teams Rn Case Management Relationship Specialty Start Date End Date Rose Mary Brennan MD PCP - General Internal Medicine 01/30/21
== END 2025-06-03 16:28 | disposition home or self-care (01) ==
LOC: HO.LAB 16:27
PROVIDERS: PCP Internal Medicine; Visit Provider Obstetrics & Gynecology
DX: O20.9 Hemorrhage in early pregnancy, unspecified (principal)
CPT/HCPCS: 36415; 84702

== ENCOUNTER 2025-06-05 07:52 | Outpatient (REF) | payer OTHER, SELFPAY ==
--- OUTSIDE RECORDS SUMMARY | 2025-06-05 07:57 | XMS_ITS | Clinical Summary ---
Author Organization [facility] Address [address] [place] [address] Care Team Providers Care Ruby On Rails Developer Name Role Phone Rose Mary Brennan MD Primary Care Provider [phone] Allergies No known active allergies Medications Medication [...] age to complete this topic Care Teams Ruby On Rails Developer Relationship Specialty Start Date End Date Rose Mary Brennan MD PCP - General Internal Medicine 01/30/21
== END 2025-06-05 07:53 | disposition home or self-care (01) ==
LOC: HO.LAB 07:52
PROVIDERS: PCP Internal Medicine; Visit Provider Obstetrics & Gynecology
DX: O20.9 Hemorrhage in early pregnancy, unspecified (principal)
CPT/HCPCS: 36415; 84702

== ENCOUNTER 2025-06-07 07:00 | Outpatient (REF) | payer OTHER, SELFPAY ==
--- OUTSIDE RECORDS SUMMARY | 2025-06-07 07:06 | XMS_ITS | Clinical Summary ---
Author Organization [facility] Address [address] [place] [address] Care Team Providers Care Pattern Maker Programer Name Role Phone Rose Mary Brennan MD Primary Care Provider [phone] Allergies No known active allergies Medications Medication [...] age to complete this topic Care Teams Pattern Maker Programer Relationship Specialty Start Date End Date Rose Mary Brennan MD PCP - General Internal Medicine 01/30/21
== END 2025-06-07 07:01 | disposition home or self-care (01) ==
LOC: HO.LAB 07:00
PROVIDERS: PCP Internal Medicine; Visit Provider Nurse Practitioner Women's Health
DX: Z32.01 Encounter for pregnancy test, result positive (principal)
CPT/HCPCS: 36415; 84702

== ENCOUNTER 2025-06-09 08:35 | Emergency (ER) | payer OTHER, SELFPAY ==
--- NOTE | ~2025-06-09 | US_ITS ---
CLINICAL HISTORY: confirm IUP rule out ectopic, Pain US pelvis transabdominal and transvaginal Comparison: None provided Findings: Transabdominal scanning performed for overall anatomy. Transvaginal scanning performed for additional detail. Anteverted uterus is 8.3 cm length. Normal myometrium. Endometrium 9.3 mm thickness. Right ovary 2.9 x 2.2 x 2.2 cm. Left ovary 3.1 x 2.3 x 2.4 cm. Normal color Doppler of both ovaries. No free fluid. IMPRESSION: 1. Normal pelvic ultrasound. No evidence of intrauterine or ectopic gestation. This document has been electronically signed by: Marcelino Calloway MD on 06/09/2025 11:08:53
[2025-06-09 08:40] VITALS: BP 140/74; PULSE 93; RESP 16; TEMP 36.8; O2SAT 100; BMI 50.3
--- NOTE | 2025-06-09 09:03 | ED.GENADULT ---
HPI - General Adult General Chief complaint: Abdominal Pain Stated complaint: Preg, sharp pain Time Seen by Provider: 06/09/25 09:02 Source: patient, RN notes reviewed and old records reviewed Mode of arrival: ambulatory Limitations: no limitations History of Present Illness ED Provider: Mayra [facility] narrative: Patient is a 30-year-old female with history of two prior miscarriages, MS presenting to the emergency department with complaint of right groin pain since yesterday. States the pain radiates to her abdomen and is worse with movement and stretching. Had a positive test on 05/28. LMP was 05/02/25. Has been following with her OBGYN for trending hCG levels which have been increasing. She denies any dysuria, frequency, hematuria or other urinary symptoms. Denies any vaginal bleeding or other abnormal vaginal discharge. States that her symptoms began after she was cleaning her house. Denies fevers. Denies nausea, vomiting, diarrhea, constipation. Also notes that Dr. Shepherd took her off her MS medication once she had the positive test. complaint: groin pain Onset (ago): hour(s) Related Data Home Medications ?Medication ?Instructions ?Recorded ?Confirmed amlodipine 2.5 mg tablet 2.5 mg PO DAILY 07/02/21 05/23/23 cholecalciferol (vitamin D3) 50 50 mcg PO DAILY 07/02/21 04/08/25 mcg (2,000 unit) capsule metformin 500 mg tablet 1,000 mg PO BID 03/03/23 04/08/25 oxybutynin chloride 5 mg 5 mg PO DAILY 04/04/25 tablet,extended release 24 hr sumatriptan succinate 50 mg tablet See Rx Instructions PO .COMPLEX 04/04/25 Previous Rx's ?Medication ?Instructions ?Recorded diroximel fumarate 231 mg 462 mg (2 x 231 mg) PO BID #360 04/08/25 capsule,delayed release (Vumerity) caps diroximel fumarate 231 mg 231 mg PO BID #180 caps 04/16/25 capsule,delayed release (Vumerity) Allergies Allergy/AdvReac Type Severity Reaction Status Date / Time IV contrast AdvReac Mild Dizziness Uncoded 06/09/25 08:41 Review of Systems Review of Systems: As per HPI Yes all other systems are reviewed and are negative Constitutional: Constitutional: Reports as per HPI [facility] Past Medical History Medical History (Updated 06/09/25 @ 12:48 by Teena Nunez NP) Anxiety Mood disorder Spastic bladder Paraparesis Myelopathy ASCUS with positive high risk HPV cervical Multiple sclerosis High blood pressure Surgical History Hx of wisdom tooth extraction Family History Family History Father Diabetes HTN (hypertension) Paternal Aunt Cancer of breast, female Mother No problems noted. Brother No problems noted. Sister No problems noted. Social History Social History Household Members: Family Housing: House Are you a primary social worker palliative care to a significant other at home: No Do you presently have visiting nurse or other home services: No Alcohol intake: never Patient Tobacco Use Status: Never used Tobacco Trauma History: SAB 03/04/22 Agree to transfusion: Yes service: No Current occupational status: unemployed Current occupational exposures/hazards: No Sexual orientation: Straight/Heterosexual Gender identity: Female Vision needs: Yes Physical Exam ED Vital Signs: Vital Signs - 24 hr 06/09/25 08:40 06/09/25 09:54 Temperature 98.2 F 98.5 F Pulse Rate 93 72 Respiratory Rate 16 16 Blood Pressure 140/74 H 116/59 L Pulse Oximetry 100 97 Oxygen Delivery Method Room Air Room Air BMI result Body Mass Index 50.3 Vital signs have been reviewed and appear to be correct. Blood pressure normal. Heart rate normal. Respiratory rate normal. Temperature normal. Oxygen saturation normal. Const General: cooperative, healthy appearing and no acute distress Orientation/consciousness: oriented to person, oriented to place, oriented to time and patient oriented x3 Limitations: no limitations [facility] Head: Yes normocephalic and Yes atraumatic Ears: external ears normal General nose exam: Normal external nose present Face and sinus: Yes face symmetric Mouth: oropharynx normal and moist mucous membranes Throat: Yes uvula midline Eyes Pupils: Equal, round and reactive pupils present Neck Neck: Yes normal visual inspection and Yes supple Resp Effort & Inspection: normal respiratory effort and able to speak in complete sentences Auscultation: clear to auscultation bilaterally Cardio Rate: regular rate Rhythm: regular rhythm Heart sounds: S1 normal heart sound present and S2 normal heart sound present GI Palpation (GI): Soft to palpation and nontender Auscultation: normoactive bowel sounds General: Yes no CVA tenderness Back/Spine/Pelvis Back: no CVA tenderness Skin General skin exam: elasticity normal and turgor normal Neuro General: oriented to person, oriented to place, oriented to time, patient oriented x3, moves all extremities, no focal motor deficits and CN's II-XI intact bilaterally Cranial nerves: Yes Equal, round and reactive pupils present Cognition (Neuro): normal cognition Extrem General: Yes full ROM, Yes no pedal edema and Yes no calf tenderness Right lower extremity: hip/thigh (increased pain with ROM of right hip, especially internal rotation) Psych Mental Status: mental status grossly normal Affect: normal affect Thought process: Normal thought process present Medical Decision Making Medical Decision Making [facility] Narrative: Patient is a 30-year-old female with history of two prior miscarriages presenting to the emergency department with complaint of right groin pain since yesterday. On exam patient is awake, A+Ox3, VS WNL, afebrile, normal neurological exam without focal deficits, physical exam findings as above. Given reported symptoms and physical exam findings, initial differential includes but is not limited to groin strain, ectopic, UTI. Labs notable for downtrending HCG increasing suspicion for threatened . Ultrasound notable for no evidence of ectopic or intrauterine . My interpretation is in agreement with the radiologist's interpretation. UA is without evidence of infection. Case discussed with JACOBO Anderson at [facility] as no DOUBLE NEEDLE STITCHER coverage here today who is in agreement with repeat HCG and strict return precautions. Results discussed with patient and all questions answered. Strict return precautions reviewed with patient and significant other at bedside. Advised calling her art gilder 1st thing tomorrow morning to schedule repeat hCG level check and also obtain possible earlier appointment. Patient verbalized understanding of and agreement with plan. Differential Diagnosis Differential Diagnoses: The differential diagnosis associated with the presentation includes As per [facility] Admission/Observation Consideration of admission/observation: Escalation of care including admission/observation considered Patient would have been admitted to the hospital had their clinical presentation warranted hospital admission. Lab Data [facility] Lab Attestation statement: I reviewed the patient's lab results. [facility] 06/09/25 09:08 06/09/25 09:08 Labs: Lab Results 09/14/25 09/14/25 Range/Units 09:08 10:00 WBC 5.9 (4.8-10.8) X10*3/uL RBC 4.94 (4.20-5.50) X10*6/uL Hgb 14.3 (12.0-16.0) g/dl Hct 42.9 (37.0-47.0) % MCV 86.8 (80.0-98.0) fL MCH 28.9 (27.0-33.0) pg MCHC 33.3 (31.0-35.0) g/dl RDW 12.5 (11.0-16.0) % Plt Count 407 H (160-400) X10*3/uL MPV 8.1 L (9.4-12.3) fL Immature Gran % (Auto) 0.3 (0.0-0.4) % Neut % (Auto) 81.4 H (45-73) % Lymph % (Auto) 10.2 L (20-40) % Sanders % (Auto) 4.6 (2-11) % Eos % (Auto) 2.7 (0-4) % Baso % (Auto) 0.8 (0-2) % Lymph # (Auto) 0.6 L (1.2-4.9) X10*3/uL Sanders # (Auto) 0.3 (0.1-1.2) X10*3/uL Eos # (Auto) 0.2 (0.0-0.4) X10*3/uL Baso # (Auto) 0.1 (0.0-0.2) X10*3/uL Abs Immat Gran (auto) 0.02 (0.00-0.03) X10*3/uL Absolute Neuts (auto) 4.8 (2.0-8.3) x10*3/uL Absolute Nucleated RBC 0.000 (0.0-0.012) X10*3/uL Nucleated RBC % (auto) 0.0 (0.0-0.2) /100WBC Sodium 140 (135-145) mmol/L Potassium 4.1 (3.3-5.1) mmol/L Chloride 111 H (96-108) mmol/L Carbon Dioxide 22 (22-29) mmol/L Anion Gap 11 L (12-20) BUN 8 L (9-16) mg/dL Creatinine 0.53 (0.5-1.4) mg/dL Estim Creat Clear Calc 197.6 Estimated GFR > 60 Random Glucose 124 H (60-115) mg/dL Calcium 8.7 D (8.4-10.2) mg/dL Total Bilirubin 0.5 (0.0-1.0) mg/dL AST 40 H (5-31) U/L ALT 58 H (0-31) U/L Alkaline Phosphatase 58 (39-117) U/L Total Protein 7.0 (6.5-8.0) g/dL Albumin 3.9 (3.5-5.0) g/dL Beta HCG, Quant 47 mIU/mL Urine Color Yellow Urine Appearance Clear Urine pH 7.0 (5.0-9.0) Ur Specific [place] 1.010 (1.005-1.025) Urine Protein Negative (Neg-Trace) mg/dL Urine Glucose (UA) Negative (Negative) mg/dL Urine Ketones Negative (Negative) mg/dL Urine Blood Negative (Negative) Urine Nitrite Negative (Negative) Ur Leukocyte Esterase Negative (Negative) Independent Interpretation I performed an independent interpretation of an: Ultrasound Interpretation: Ultrasound without evidence of intrauterine or ectopic . Radiology Impression Discussion of test interpretation with radiology: I have reviewed the radiologist's reading. Radiologist Impression: IMPRESSION: 1. Normal pelvic ultrasound. No evidence of intrauterine or ectopic gestation. External Record Review External record reviewed: Inpatient record, Office record and Outpatient record Discharge Plan Discharge Clinical Impression: Right groin pain, Threatened Patient Disposition: Home, Self-Care Instructions: Threatened Miscarriage (ED) Additional Instructions: You were evaluated in the emergency department today for right groin pain. Your labs show a declining HCG level. Your ultrasound did not show evidence of an intrauterine or an ectopic . We recommend that you call your DOUBLE NEEDLE STITCHER tomorrow morning to order a repeat HCG level in 48 hours. It is likely that this represents a miscarriage. If you develop vaginal bleeding, especially if you were going through more than 1 pad per hour, worsening pain or persistent pain, fever 100.4? F or greater, persistent vomiting or any other new or concerning symptoms return to the emergency department. You should avoid intercourse and any strenuous activity until you follow up with your DOUBLE NEEDLE STITCHER. Prescriptions: No Action Vumerity 231 mg capsule,delayed release(DR/EC) 231 mg PO BID Qty: 180 1RF amlodipine 2.5 mg tablet 2.5 mg PO DAILY cholecalciferol (vitamin D3) 50 mcg (2,000 unit) capsule 50 mcg PO DAILY metformin 500 mg tablet 1,000 mg PO BID sumatriptan succinate 50 mg tablet See Rx Instructions PO .COMPLEX Rx Instructions: take 1 tab at onset of headache; if no relief may repeat 1 tab after at least 2 hrs; max = 4 tabs/24 hr PO oxybutynin chloride 5 mg tablet extended release 24hr 5 mg PO DAILY Vumerity 231 mg capsule,delayed release(DR/EC) 462 mg PO BID Qty: 360 0RF Print Language: Greenlandic
[2025-06-09 09:12] LABS: MANUAL DIFF FLAG NO
[2025-06-09 09:13] LABS: Hematocrit 42.9 % (37.0-47.0); Hemoglobin 14.3 g/dl (12.0-16.0); Imm Gran Abs Auto 0.02 X10*3/uL (0.00-0.03); Imm Gran Pct Auto 0.3 % (0.0-0.4); Lymphocytes Absolute Auto 0.6 X10*3/uL (1.2-4.9); Mean Corpuscular HGB Conc 33.3 g/dl (31.0-35.0); Mean Corpuscular Hemoglobin 28.9 pg (27.0-33.0); Mean Corpuscular Volume 86.8 fL (80.0-98.0); NRBC Abs Auto 0.000 X10*3/uL (0.0-0.012); NRBC Pct Auto 0.0 /100WBC (0.0-0.2); Platelet Count 407 X10*3/uL (160-400); Red Blood Count 4.94 X10*6/uL (4.20-5.50); White Blood Count 5.9 X10*3/uL (4.8-10.8)
--- OUTSIDE RECORDS SUMMARY | 2025-06-09 09:15 | XMS_ITS | Clinical Summary ---
Author Organization [facility] Address [address] [place] [address] Care Team Providers Care Photography Assistant Name Role Phone Rose Mary Brennan MD Primary Care Provider [phone] Allergies No known active allergies Medications Medication [...] age to complete this topic Care Teams Photography Assistant Relationship Specialty Start Date End Date Rose Mary Brennan MD PCP - General Internal Medicine 01/30/21
[2025-06-09 09:33] LABS: Alanine Aminotransferase 58 U/L (0-31); Albumin Level 3.9 g/dL (3.5-5.0); Alkaline Phosphatase 58 U/L (39-117); Anion Gap 11 (12-20); Aspartate Amino Transferase 40 U/L (5-31); Blood Urea Nitrogen 8 mg/dL (9-16); Calcium 8.7 mg/dL (8.4-10.2); Carbon Dioxide 22 mmol/L (22-29); Chloride 111 mmol/L (96-108); Creatinine Clr Calc Pharmacy 197.6; Estimated Glomerular Filt Rate > 60; Potassium 4.1 mmol/L (3.3-5.1); Sodium 140 mmol/L (135-145); Total Protein 7.0 g/dL (6.5-8.0)
[2025-06-09 09:54] VITALS: BP 116/59; PULSE 72; RESP 16; TEMP 36.9; O2SAT 97
[2025-06-09 10:12] LABS: Appearance Urine Clear; Glucose Urine UA Negative (Negative); PH 7.0 (5.0-9.0); Specific Gravity - Urine 1.010 (1.005-1.025)
[2025-06-09 12:56] VITALS: BP 128/74; PULSE 77; RESP 16; TEMP 36.9; O2SAT 98
== END 2025-06-09 12:59 | disposition home or self-care (01) ==
PROVIDERS: Emergency Provider Emergency Medicine; PCP Internal Medicine
DX: O20.0 Threatened abortion (principal); R10.30 Lower abdominal pain, unspecified; R10.2 Pelvic and perineal pain; Z79.899 Other long term (current) drug therapy
CPT/HCPCS: 36415; 76801; 76817; 80053; 81003; 84702; 85025; 99284

== ENCOUNTER → 2025-06-09 10:00 | Outpatient (BNV) | payer OTHER, SELFPAY | PROVIDERS: Emergency Provider Emergency Medicine; PCP Internal Medicine; Visit Provider Specialist | DX: R10.31 Right lower quadrant pain (principal) | CPT/HCPCS: 76801; 76817 ==

== ENCOUNTER 2025-06-11 16:02 | Outpatient (REF) | payer OTHER, SELFPAY | END 2025-06-11 16:03 | disposition home or self-care (01) | LOC: HO.LAB 16:02 | PROVIDERS: PCP Internal Medicine; Visit Provider Nurse Practitioner Women's Health | DX: Z32.01 Encounter for pregnancy test, result positive (principal) | CPT/HCPCS: 36415; 84702 ==

== ENCOUNTER 2025-06-13 13:12 | Outpatient (REF) | payer OTHER, SELFPAY ==
--- OUTSIDE RECORDS SUMMARY | 2025-06-13 15:14 | XMS_ITS | Clinical Summary ---
Author Organization [employer] [facility] Address [address] [place] [address] Care Team Providers Care Shaft Tender Name Role Phone Rose Mary Brennan MD Primary Care Provider [phone] Allergies No known active allergies Medications Medication [...] age to complete this topic Care Teams Shaft Tender Relationship Specialty Start Date End Date Rose Mary Brennan MD PCP - General Internal Medicine 01/30/21
[2025-06-13 15:47] LABS: Thyroid Stimulating Hormone 1.20 uIU/mL (0.32-4.0)
== END 2025-06-13 13:13 | disposition home or self-care (01) ==
LOC: HO.LAB 13:12
PROVIDERS: Obstetrics & Gynecology; PCP Internal Medicine; Visit Provider Nurse Practitioner Women's Health
DX: Z32.01 Encounter for pregnancy test, result positive (principal)
CPT/HCPCS: 36415; 84443; 84702; 85597; 85598; 85613; 85730; 86147

== ENCOUNTER 2025-06-20 11:51 | Outpatient (REF) | payer OTHER, SELFPAY ==
--- OUTSIDE RECORDS SUMMARY | 2025-06-20 16:45 | XMS_ITS | Clinical Summary ---
Author Organization [facility] Address [address] [place] [address] Care Team Providers Care Family Nurse Name Role Phone Rose Mary Brennan MD Primary Care Provider [phone] Allergies No known active allergies Medications Medication [...] age to complete this topic Care Teams Family Nurse Relationship Specialty Start Date End Date Rose Mary Brennan MD PCP - General Internal Medicine 01/30/21
== END 2025-06-20 11:52 | disposition home or self-care (01) ==
LOC: HO.LAB 11:51
PROVIDERS: PCP Internal Medicine; Visit Provider Nurse Practitioner Women's Health
DX: O03.9 Complete or unspecified spontaneous abortion without complication (principal)
CPT/HCPCS: 36415; 84702

== ENCOUNTER 2025-07-11 08:27 | Outpatient (REF) | payer OTHER, SELFPAY ==
--- OUTSIDE RECORDS SUMMARY | 2025-07-11 08:48 | XMS_ITS | Clinical Summary ---
Author Organization [employer] [facility] Address [address] [place] [address] Care Team Providers Care Line Prep Cook Name Role Phone Rose Mary Brennan MD Primary Care Provider [phone] Allergies No known active allergies Medications Medication [...] age to complete this topic Care Teams Line Prep Cook Relationship Specialty Start Date End Date Rose Mary Brennan MD PCP - General Internal Medicine 01/30/21
[2025-07-11 12:14] LABS: Cholesterol 144 mg/dL (<200); HDL Cholesterol 30 mg/dL (>40); Triglycerides 81 mg/dL (<150)
== END 2025-07-11 08:28 | disposition home or self-care (01) ==
LOC: HO.LAB 08:27
PROVIDERS: PCP Internal Medicine; Visit Provider Internal Medicine
DX: G43.009 Migraine without aura, not intractable, without status migrainosus (principal); G35.D Multiple sclerosis, unspecified; Z13.1 Encounter for screening for diabetes mellitus; Z13.220 Encounter for screening for lipoid disorders; Z13.6 Encounter for screening for cardiovascular disorders; Z13.29 Encounter for screening for other suspected endocrine disorder; Z79.899 Other long term (current) drug therapy; Z87.59 Personal history of other complications of pregnancy, childbirth and the puerperium
CPT/HCPCS: 36415; 80061; 82306

== ENCOUNTER 2025-07-11 08:40 | Outpatient (AMB) | payer OTHER, SELFPAY ==
--- NOTE | 2025-07-11 09:06 | MHC.OFFVIS ---
Intake Visit Reasons: 3m/ MS Allergies IV contrast Adverse Reaction (Mild, Uncoded 06/09/25 08:41) Dizziness HPI Comments Details: 30 yo RH obese woman with migraine and MS. She started having numbness, pain and weakness of legs in December of 2020. Around same time, she also had Covid infection and she thought it was due to Covid. Her work up revealed abnormalities in brain, cervical and thoracic cord suggestive of demylinating disease, right eye ANURAG was delayed, and CSF reavealed high IgG index and >5 OCBs not noted in serum. Aquaporin 4 IgG titer was negative. She was put on Tecfidera, which later was stopped due to , and restarted after she had two miscarriages. In Apr, she was put on Vumerity, which her insurance later stopped coverage for it, and she stopped taking it in January of 2024. She restarted taking Vumerity in Jun 2024. It was stopped due to high LFTs in end of Apr 2025. Another problem was that shehas been trying to have a child. She already had 4 miscarriages and was trying another time. She is presenting with evaluation of multiple sclerosis management and considerations. She describes multiple sclerosis with intermittent symptoms currently being managed with medications that have raised liver enzymes but not to a critical level. She confirms a history of four consecutive losses, with gestational ages at losses specified. Each resulted in loss at varying stages of gestation with no viable births, which has been emotionally challenging for her. During the visit, the patient shared concerns regarding the medications used for managing her MS and their impact on her liver function. Liver enzymes were elevated but have shown a reduction over time without significant impact. There were discussions regarding delaying MS treatment to encourage successful outcomes, due to the absence of significant MS relapses over the past three years. The patient has been avoiding taking MS medication due to her liver's reaction to it but remains concerned about potential relapses if not treated. COUNTS INCLUDE 234 BEDS AT THE [facility] Medical History (Updated 06/10/25 @ 00:00 by Gómez Reyna) Anxiety Mood disorder Spastic bladder Paraparesis Myelopathy ASCUS with positive high risk HPV cervical Multiple sclerosis High blood pressure Surgical History Hx of wisdom tooth extraction Family History Father Diabetes HTN (hypertension) Paternal Aunt Cancer of breast, female Mother No problems noted. Brother No problems noted. Sister No problems noted. Social History Household Members: Family Both parents involved: Yes Caregiver staying overnight: No Housing: House Are you a primary special needs caregiver to a significant other at home: No Do you presently have visiting nurse or other home services: No 75 years or older and lives alone: No Alcohol intake: never Patient Tobacco Use Status: Never used Tobacco Trauma History: SAB 03/04/22 Agree to transfusion: Yes service: No Current occupational status: unemployed Current occupational exposures/hazards: No Sexual orientation: Straight/Heterosexual Gender identity: Female Vision needs: Yes Female Reproductive History Menstrual Age of Menarche: 15 Review of Systems Const Details: - Neurological: Reports MS-related symptoms without significant flare-ups in the past three years. - Reproductive: Reports recurrent loss. - Gastrointestinal: Reports previous elevation in liver enzymes. Physical Exam Neuro Other: Mental Status: Alert and oriented to person, place, and time. Normal attention. Normal spontaneous speech, fluency, and comprehension. No obvious issues with mood and memory. Affect is appropriate. Cranial Nerves: CN II: Visual landaverde full to confrontation, visual acuity intact. CN III, IV, : Pupils equal, round, reactive to light and accommodation. Extraocular movements are normal. CN V: Facial sensation is normal. CN VII: Facial movements symmetrical. CN VIII: Hearing intact to bedside conversation is normal. CN IX, X: Palate elevates symmetrically. CN XI: Shoulder shrug and head turn symmetrical. CN XII: Tongue midline without atrophy or fasciculations. Extrapyramidal: Full facial expressions and blinking. No rigidity. Movements are appropriate with no tremor or abnormality. Speech: Normal; no dysarthria or tremor. Assessment & Plan Assessment & Plan (1) Multiple sclerosis: Comment: Meds tried for headaches: naproxen, sumatriptan Meds tried for MS: Tecfidera, Vumerity Meds tried for muscle spasms: cyclobenzaprine, baclofen, tizanidine JCV titer at [facility]: 06/2024: 2.13 MRI brain WWO at [facility] in Jun 2024: No new lesion or change, lesion load low CT brain WO at [facility] in March 2023: [place] MRI brain WO at [facility] in Oct 2022: no change. LP at [facility] in March 2021: OP 16.5cm, WBCs 4, RBCs 0, Glu 60, Pro 25.3, IgG ind: high (1.26), OCBs: >5 bands in CSF not in serum Labs at [facility] in February 2021: NEY ok, Lyme ok, JCV titre: 0.21, CBC ok, ESR 16, CMP ok, LFTs ok, Chol profile ok, Vit D 24 EP screen at office in March 2021: R ANURAG delayed MRI T spine WWO at [place] in January 2021: T10 area faint T2/STIR lesion with mild enhancement MRI C spine WWO at [facility] in February 2021: multiple cord lesions, C3/4, lower cervical/T1, w/o enhancement, suggestive of demyelinating disease MRI brain WWO at [facility] in February 2021: multiple b/l cortical non enhancing lesions, probably demyelinating disease, ?left parotid gland lesion Code(s): G35 - Multiple sclerosis Category: Medical (2) Migraine without aura: Code(s): G43.009 - Migraine without aura, not intractable, without status migrainosus Category: Medical Qualifiers: Status migrainosus presence: without status migrainosus Intractability: not intractable Qualified Code(s): G43.009 - Migraine without aura, not intractable, without status migrainosus Plan I discussed the implications of continuing multiple sclerosis medications on the patient's reproductive health. Given the patient's history of losses, I advised prioritizing conception and achieving full-term by ceasing MS medication temporarily. The benefits and risks of this approach were reviewed, emphasizing the likelihood of symptom stabilization during and potential use of steroids if any MS exacerbations arise. I detailed the non-hepatotoxic treatment, like Copaxone, option for MS as an alternative, noting the patient's concern about adherence. Continual open communication about any emerging symptoms is encouraged, with regular follow-ups to assess both MS management and outcomes. Coding Level of Care Code Est Pt Level 4 (16991) Diagnoses Multiple sclerosis G35 Migraine without aura and without status migrainosus, not intractable G43.009 Status migrainosus presence: without status migrainosus Intractability: not intractable
== END 2025-07-11 09:20 | disposition home or self-care (01) ==
LOC: HO.HSM 08:41
PROVIDERS: PCP Internal Medicine; Visit Provider Psychiatry & Neurology Neurology
DX: G35.D Multiple sclerosis, unspecified (principal); G43.009 Migraine without aura, not intractable, without status migrainosus
CPT/HCPCS: 99214